=== PATIENT | female | born 1940 | race Caucasian/White ===

== ENCOUNTER 2019-05-06 02:06 | Inpatient (IN) ==
[2019-05-06] MEDS ORDERED: SODIUM CHLORIDE 0.9% 1000ML 1,000 ML IV ONE (02:26)
[2019-05-06] MEDS ORDERED: HYDROmorphone INJ 0.5 MG/0.5 ML SYR IV STA (02:26)
[2019-05-06] MEDS ORDERED: ONDANSETRON INJ 2 MG/ML 2 ML VIAL IV STA (02:26)
[2019-05-06 02:54] LABS: Basophils # (auto) 0.01 K/uL (0-0.2); Basophils % (auto) 0.1 %; Eosinophils # (auto) 0.04 K/uL (0-0.5); Eosinophils % (auto) 0.5 %; Hematocrit (blood only) 39.5 % (37-47); Hemoglobin 13.9 g/dL (12.0-16.0); Immature Granulocytes # (auto) 0.01 K/uL (0.00-0.02); Immature Granulocytes % (auto) 0.1 %; Lymphocytes # (auto) 1.32 K/uL (1.2-3.4); Lymphocytes % (auto) 18.1 %; Mean Corpuscular Hgb Conc 35.2 g/dL (32-36); Mean Platelet Volume 10.2 fL (7.4-10.4); Monocytes # (auto) 0.41 K/uL (0.11-0.59); Monocytes % (auto) 5.6 %; Neutrophils # (auto) 5.52 K/uL (1.4-6.5); Neutrophils % (auto) 75.6 %; Platelet Count 152 K/uL (130-400); RDW Coefficient of Variation 13.4 % (11.5-14.5); Red Blood Count 4.44 M/uL (4.2-5.4); White Blood Count 7.31 K/uL (4.8-10.8)
[2019-05-06 03:11] LABS: Alanine Aminotransferase 204 U/L (12-78); Albumin Level 3.8 gm/dl (3.4-5.0); Aspartate Aminotransferase 451 U/L (15-37); Blood Urea Nitrogen 14 mg/dl (7-18); Calcium 9.3 mg/dl (8.5-10.1); Carbon Dioxide 26 mmol/L (21-32); Chloride 104 mmol/L (98-107); Est GFR (African American) 53.5; Est GFR (Non-African American) 46.2; Glucose 168 mg/dl (70-99); Potassium 4.1 mmol/L (3.5-5.1); Sodium 138 mmol/L (136-145)
[2019-05-06 03:14] LABS: Alkaline Phosphatase 133 U/L (45-117); Bilirubin,Total 2.6 mg/dl (0.2-1); Globulin 3.8 gm/dl (2.5-4.0); Total Protein 7.6 gm/dl (6.4-8.2)
[2019-05-06] MEDS ORDERED: OPTIRAY 320 125ml IV PRN (03:27)
--- NOTE | 2019-05-06 04:34 | Emergency Department Note ---
Entered by Tye Bingham acting as a scribe for History of Present Illness General Chief complaint: Abdominal Pain Stated complaint: ABD PAIN, BACK PAIN Source: patient History of Present Illness Onset (ago): day(s) (yesterday at 1600) Location: abdomen Radiation: abdomen (lower) and other (back) Pain Consistency: + constant Maximum Pain Intensity: 10 Quality: + sharp Exacerbated By: + other (lying down, sitting) Associated symptoms: + other (Negative for vomiting, SOB, and CP.) The patient is a 79 year old female who presents to the emergency department with complaints of constant abdominal pain beginning at 1600 yesterday. The patient states that she developed upper abdominal pain around 1600 yesterday. She notes that her pain goes down into her lower abdomen and into her back. She reports that her back pain is sharp. The patient states that her pain does not radiate down her legs. She notes that lying down and sitting worsen her pain. She denies any similar symptoms in the past. She denies any vomiting, SOB, and CP. She reports that she tried taking Pepto and Tylenol with no relief of her symptoms. The patient states that she had two normal bowel movements today. She notes that she does not smoke cigarettes and she denies any history of diabetes. She reports that she started taking Lipitor five days ago. Home Medications Home Medications Medication Instructions Recorded Confirmed Type atorvastatin 20 mg PO HS 05/06/19 05/06/19 History cetirizine [Zyrtec] 10 mg PO DAILY PRN 05/06/19 05/06/19 History lisinopril-hydrochlorothiazide 1 tab PO DAILY 05/06/19 05/06/19 History Allergies Allergy/AdvReac Type Severity Reaction Status Date / Time No Known Allergies Allergy Unverified 05/06/19 02:49 Past Med/Surg History Medical History Choledocholithiasis with acute cholecystitis with obstruction Acute pancreatitis (Acute) Malignant neoplasm of other specified sites of body of uterus (Resolved 10/27/14 ) "Postmenopausal vaginal bleeding 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 Status post total abdominal hysterectomy bilateral salpingo-oophorectomy and lymph node dissection 12/03/2014 stage [id number] Status post completion of radiation therapy utilizing HDR therapy 3 HDR treatments were given 700 cGy each for a total 2100 cGy" On 01/26/15 17:36 Sofia Martinez wrote "Postmenopausal vaginal bleeding 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 Status post total abdominal hysterectomy bilateral salpingo-oophorectomy and lymph node dissection 12/03/2014 stage [id number]" Family History Other No significant family history Social History Preferred Language: Arabic Communication Ability: Effective Pit Hand Required: No Beliefs That Will Affect Care: None Current Living Situation: Alone Other Information That Helps Us Care for You: No Feels Safe at Home: Yes Safety Concerns: Feels Safe At This Time Smoking Status: Never smoker Do You Dip or Chew Tobacco: No ; Second Hand Exposure: No ; Tobacco Cessation Education Requested by Patient: No Hx Alcohol Use: Yes Alcohol type: hard liquor Hx Substance Use: No Review of Systems See HPI for pertinent positives & negatives. and A total of 10 systems reviewed and were otherwise negative Physical Exam Vital Signs Vital Signs - 24 hr 05/06/19 04:40 05/06/19 05:34 Pulse Rate [Right Finger] 65 68 Pulse Rhythm [Right Finger] Regular Pulse Strength [Right Finger] Normal Respiratory Rate 16 18 Respiratory Effort / Characteristics Non-Labored Non-Labored Spontaneous Respiratory Depth Normal Normal Respiratory Pattern Regular Blood Pressure [Right Arm] 161/92 H 174/79 H Blood Pressure Mean [Right Arm] 115 110 Blood Pressure Position [Right Arm] Lying Pulse Oximetry 97 98 Oxygen Delivery Method Room Air Room Air Vital signs reviewed. General: Well-appearing female, in no significant distress. HEENT: No scleral icterus, PERRLA, neck supple. Atraumatic. Cardiovascular: Regular rate and rhythm, no extra sounds. Pulmonary: Clear to auscultation bilaterally, normal work of breathing. Abdomen: Soft, nondistended, positive bowel sounds, obese abdomen with minimal tenderness to epigastric palpation, no tympany to percussion. Musculoskeletal: Atraumatic, no peripheral edema. Neurologic: Patient awake alert and oriented x 3 Skin: Warm, dry, no rash Course 0223: The patient was evaluated in room B7. A complete history and physical exam was performed. Administered Medications Atorvastatin Calcium (Lipitor) 20 mg PO HS MARIE Stop: 06/05/19 20:59 Last Admin: 05/06/19 21:14 Dose: 20 mg Documented by: [id number] Famotidine 20 mg/ Syringe 5 mls @ 2.5 mls/min IV BID MARIE Stop: 06/05/19 08:59 Last Admin: 05/06/19 21:02 Dose: 2.5 mls/min Documented by: [id number] Admin: 05/06/19 09:56 Dose: 2.5 mls/min Documented by: [id number] Piperacillin Sod/Tazobactam (Sod 3.375 gm/ Dextrose) 115 mls @ 28.75 mls/hr IV Q8H MARIE; Protocol Stop: 05/16/19 09:59 Last Admin: 05/07/19 01:38 Dose: 28.8 mls/hr Documented by: [id number] Infusion: 05/07/19 01:09 Dose: 0 mls/hr Documented by: [id number] Admin: 05/06/19 21:02 Dose: 28.8 mls/hr Documented by: [id number] Infusion: 05/06/19 14:37 Dose: 0 mls/hr Documented by: [id number] Admin: 05/06/19 10:35 Dose: 28.8 mls/hr Documented by: [id number] Lactated Ringer's (Lr) 1,000 mls @ 150 mls/hr IV .Q6H40M MARIE Stop: 06/05/19 09:44 Last Admin: 05/07/19 04:02 Dose: 150 mls/hr Documented by: [id number] Infusion: 05/07/19 03:54 Dose: 150 mls/hr Documented by: [id number] Admin: 05/06/19 21:13 Dose: 150 mls/hr Documented by: [id number] Infusion: 05/06/19 18:20 Dose: 0 mls/hr Documented by: [id number] Admin: 05/06/19 17:15 Dose: 150 mls/hr Documented by: [id number] Infusion: 05/06/19 17:14 Dose: 0 mls/hr Documented by: [id number] Infusion: 05/06/19 17:14 Dose: 0 mls/hr Documented by: [id number] Admin: 05/06/19 11:22 Dose: 150 mls/hr Documented by: [id number] Discontinued Medications Glucagon (Glucagen) Confirm Administered Dose 1 mg .ROUTE .STK-MED ONE Stop: 05/06/19 19:19 Last Admin: 05/06/19 23:15 Dose: Not Given Documented by: [id number] Hydromorphone HCl (Dilaudid) 0.5 mg IV NOW STA Stop: 05/06/19 02:27 Last Admin: 05/06/19 03:02 Dose: 0.5 mg Documented by: [id number] Sodium Chloride (Nss 1000ml) 1,000 mls @ 150 mls/hr IV .Q6H40M ONE Stop: 05/06/19 09:05 Last Infusion: 05/06/19 09:59 Dose: 0 mls/hr Documented by: [id number] Admin: 05/06/19 03:02 Dose: 150 mls/hr Documented by: [id number] Piperacillin Sod/Tazobactam Sod (Zosyn) 4.5 gm in 120 mls @ 240 mls/hr IV NOW ONE Stop: 05/06/19 06:07 Last Infusion: 05/06/19 06:09 Dose: 0 mls/hr Documented by: [id number] Admin: 05/06/19 05:43 Dose: 240 mls/hr Documented by: [id number] Sodium Chloride (Nss 1000ml) 1,000 mls @ 200 mls/hr IV .Q5H MARIE Stop: 06/05/19 06:49 Last Infusion: 05/06/19 10:02 Dose: 0 mls/hr Documented by: [id number] Admin: 05/06/19 09:14 Dose: 200 mls/hr Documented by: [id number] Indomethacin (Indocin) 100 mg UT ONE ONE Stop: 05/06/19 08:30 Last Admin: 05/06/19 08:57 Dose: Not Given Documented by: [id number] Indomethacin (Indocin) Confirm Administered Dose 100 mg UT .STK-MED ONE Stop: 05/06/19 18:26 Last Admin: 05/06/19 18:41 Dose: 100 mg Documented by: [id number] Ioversol (Optiray 320 125ml) 125 ml IV ONCE PRN PRN Reason: Interaction Checking Stop: 05/10/19 03:26 Last Admin: 05/06/19 03:28 Dose: 118 ml Documented by: [id number] Miscellaneous Information (Consult) 1 ea N/A UD PRN PRN Reason: Consult Stop: 06/05/19 05:37 Last Admin: 05/06/19 05:43 Dose: 1 ea Documented by: [id number] Ondansetron HCl (Zofran) 4 mg IV NOW STA Stop: 05/06/19 02:27 Last Admin: 05/06/19 03:02 Dose: 4 mg Documented by: [id number] Medical Decision Making Differential Diagnosis Differential diagnosis: Etiologies such as biliary colic, cholecystitis, hepatitis, perihepatitis, pancreatitis, cardiac disease, pancreatitis, gastritis, peptic ulcer disease, appendicitis, ovarian cyst, ovarian torsion, ectopic , pelvic inflammatory disease, cystitis, diverticulitis, mesenteric ischemia, inflammatory bowel disease, ileus, bowel obstruction, aortic pathology, shingles, as well as others were considered. Medical Records Attestation: I reviewed the patient's medical records. Home Medications Current Medication List: was personally reviewed by me Laboratory Data Attestation: I reviewed the patient's lab results. Result diagrams: 05/06/19 02:43 05/06/19 02:43 Lab Results 05/06/19 05/06/19 05/06/19 Range/Units 02:43 02:43 02:43 WBC 7.31 (4.8-10.8) K/uL RBC 4.44 (4.2-5.4) M/uL Hgb 13.9 (12.0-16.0) g/dL Hct 39.5 (37-47) % MCV 89.0 (80-100) fL MCH 31.3 (25-34) pg MCHC 35.2 (32-36) g/dL RDW Std Deviation 44.0 (36.4-46.3) fL RDW Coeff of Francisco Javier 13.4 (11.5-14.5) % Plt Count 152 (130-400) K/uL MPV 10.2 (7.4-10.4) fL Immature Gran % (Auto) 0.1 % Neut % (Auto) 75.6 % Lymph % (Auto) 18.1 % [place] % (Auto) 5.6 % Eos % (Auto) 0.5 % Baso % (Auto) 0.1 % Immature Gran # (Auto) 0.01 (0.00-0.02) K/uL Neut # (Auto) 5.52 (1.4-6.5) K/uL Lymph # (Auto) 1.32 (1.2-3.4) K/uL [place] # (Auto) 0.41 (0.11-0.59) K/uL Eos # (Auto) 0.04 (0-0.5) K/uL Baso # (Auto) 0.01 (0-0.2) K/uL Sodium 138 (136-145) mmol/L Potassium 4.1 (3.5-5.1) mmol/L Chloride 104 (98-107) mmol/L Carbon Dioxide 26 (21-32) mmol/L Anion Gap 8.0 (3-11) BUN 14 (7-18) mg/dl Creatinine 1.13 (0.6-1.2) mg/dl Est Cr Clr Drug Dosing Not Reportable Est GFR ( Amer) 53.5 Est GFR (Non-Af Amer) 46.2 BUN/Creatinine Ratio 12.0 (10-20) Glucose 168 H (70-99) mg/dl Lactate 1.5 (0.4-2.0) mmol/L Calcium 9.3 (8.5-10.1) mg/dl Total Bilirubin 2.6 H (0.2-1) mg/dl AST 451 H (15-37) U/L ALT 204 H (12-78) U/L Alkaline Phosphatase 133 H (45-117) U/L Total Protein 7.6 (6.4-8.2) gm/dl Albumin 3.8 (3.4-5.0) gm/dl Globulin 3.8 (2.5-4.0) gm/dl Albumin/Globulin Ratio 1.0 (0.9-2) Lipase 1003 H (73-393) U/L Urine Color Urine Appearance (Clear) Urine pH (4.5-7.5) Ur Specific [place] (1.000-1.030) Urine Protein (Negative) Urine Glucose (UA) (Negative) Urine Ketones (Negative) Urine Blood (Negative) Urine Nitrite (Negative) Urine Bilirubin (Negative) Urine Urobilinogen (Negative) Ur Leukocyte Esterase (Negative) 05/06/19 Range/Units 04:31 WBC (4.8-10.8) K/uL RBC (4.2-5.4) M/uL Hgb (12.0-16.0) g/dL Hct (37-47) % MCV (80-100) fL MCH (25-34) pg MCHC (32-36) g/dL RDW Std Deviation (36.4-46.3) fL RDW Coeff of Francisco Javier (11.5-14.5) % Plt Count (130-400) K/uL MPV (7.4-10.4) fL Immature Gran % (Auto) % Neut % (Auto) % Lymph % (Auto) % [place] % (Auto) % Eos % (Auto) % Baso % (Auto) % Immature Gran # (Auto) (0.00-0.02) K/uL Neut # (Auto) (1.4-6.5) K/uL Lymph # (Auto) (1.2-3.4) K/uL [place] # (Auto) (0.11-0.59) K/uL Eos # (Auto) (0-0.5) K/uL Baso # (Auto) (0-0.2) K/uL Sodium (136-145) mmol/L Potassium (3.5-5.1) mmol/L Chloride (98-107) mmol/L Carbon Dioxide (21-32) mmol/L Anion Gap (3-11) BUN (7-18) mg/dl Creatinine (0.6-1.2) mg/dl Est Cr Clr Drug Dosing Est GFR ( Amer) Est GFR (Non-Af Amer) BUN/Creatinine Ratio (10-20) Glucose (70-99) mg/dl Lactate (0.4-2.0) mmol/L Calcium (8.5-10.1) mg/dl Total Bilirubin (0.2-1) mg/dl AST (15-37) U/L ALT (12-78) U/L Alkaline Phosphatase (45-117) U/L Total Protein (6.4-8.2) gm/dl Albumin (3.4-5.0) gm/dl Globulin (2.5-4.0) gm/dl Albumin/Globulin Ratio (0.9-2) Lipase (73-393) U/L Urine Color Yellow Urine Appearance Clear (Clear) Urine pH 8.0 H (4.5-7.5) Ur Specific [place] > 1.045 H (1.000-1.030) Urine Protein Negative (Negative) Urine Glucose (UA) Negative (Negative) Urine Ketones Negative (Negative) Urine Blood Negative (Negative) Urine Nitrite Negative (Negative) Urine Bilirubin Negative (Negative) Urine Urobilinogen Negative (Negative) Ur Leukocyte Esterase Negative (Negative) Imaging Data Radiologist's Impression: CT ABDOMEN & PELVIS With Contrast: Multiple calcified dependent gallstones with the largest measuring 10 mm. No pericholecystic inflammation, but the gallbladder is distended. Correlate with physical exam to see if this patient has a positive Thao's sign for acute cholecystitis. Mild intrahepatic biliary ductal dilatation. Normal appendix visualized. Occasional diverticulosis without evidence of diverticulitis. There is a segment of the transverse colon which is located within a midline incisional hernia. No acute brain bowel obstruction or evidence of incarceration. The small bowel loops appear unremarkable. No bowel obstruction. Status post remote hysterectomy. Small hiatal hernia with circumferential wall thickening of the distal esophagus. Question reflux esophagitis. Radiologist: Axel Borrego M.D. Study ready at 03:34 and initial results transmitted at 05:36 ECG Data Attestation: I personally reviewed and interpreted this ECG as follows: Indication: abdominal pain Rate (beats per minute): 61 Rhythm: sinus rhythm Findings: + 1st degree AV block Additional Comments: Low voltage QRS, previous inferior infarct, QTC 446, nonspecific ST change in anterolateral lead. Blood Pressure Blood Pressure Findings: Elevated blood pressure Blood Pressure Disposition: Referred to patients primary care provider MDM Narrative This patient was evaluated and appeared to be in some discomfort. IV access was obtained and laboratory work was drawn. Patient was medicated with IV Dilaudid and Zofran. IV fluids were initiated. Given the vague distribution of the patient's pain, CT scan of the abdomen pelvis was performed with IV contrast. This study is consistent with calcified stones in the gallbladder. Laboratory work reveals a normal WBC however AST, ALT and total bilirubin are elevated. Given the above findings, obstruction of the biliary tract is a concern. Patient was medicated with IV Zosyn 4.5 g. Her pain and nausea seemed to be under control. I did speak with hospitalist service for admission and further management in addition to Dr. Asif of general surgery. Impression & Plan Acute cholecystitis, Acute pancreatitis Discharge Plan Visit Data *Final* Discharge Date/Time: 05/06/19 06:25 Chief Complaint: Abdominal Pain Stated Complaint: ABD PAIN, BACK PAIN ED Provider: Parris Estrada Discharge Problem: Acute cholecystitis, Acute pancreatitis Patient Disposition: Admitted As Inpatient Discharge Instructions Interventions: ED Discharge Assessment Last Done: 05/06/19 06:25 Discharge Problem: Acute pancreatitis Qualifiers: Pancreatitis type: biliary Acute pancreatitis complication: unspecified Qualified Code(s): K85.10 - Biliary acute pancreatitis without necrosis or infection The scribe's documentation has been prepared under my direction and personally reviewed by me in its entirety. I confirm that the note above accurately reflects all work, treatment, procedures, and medical decision making performed by me.
[2019-05-06] MEDS ORDERED: PIPERACILLIN/TAZOBACTAM 4.5 GM/120 ML BAG IV ONE (05:38)
[2019-05-06] MEDS ORDERED: PIPERACILL/TAZOBAC CONSULT ACTIVE PRN ×2 (05:38→06:50)
[2019-05-06 06:34] LABS: Appearance Urine Clear (Clear); Bilirubin Urine Negative (Negative); Blood Urine Negative (Negative); Color Urine Yellow; Glucose Urine UA Negative (Negative); Ketones Urine Negative (Negative); Leukocyte Esterase Urine Negative (Negative); Nitrite Urine Negative (Negative); Protein Urine Negative (Negative); Specific Gravity Urine > 1.045 (1.000-1.030); Urobilinogen Urine Negative (Negative)
[2019-05-06] MEDS ORDERED: ONDANSETRON INJ 2 MG/ML 2 ML VIAL IV PRN ×2 (06:50→19:09)
[2019-05-06] MEDS ORDERED: CETIRIZINE HCL 10 MG TABLET PO PRN (06:50)
[2019-05-06] MEDS ORDERED: HydrALAZINE HCL 20 MG/ML VIAL IV PRN (06:50)
[2019-05-06] MEDS ORDERED: PIPERACILLIN/TAZOBACTAM 4.5 GM in DEXTROSE 5% 100 ML IV STA (06:50)
[2019-05-06] MEDS ORDERED: SODIUM CHLORIDE 0.9% 1000ML 1,000 ML IV SCH (06:50)
[2019-05-06] MEDS ORDERED: HYDROmorphone INJ 0.5 MG/0.5 ML SYR IV PRN (06:50)
[2019-05-06] MEDS ORDERED: NITROGLYCERIN SL 0.4 MG/TAB TAB SL PRN (06:50)
--- NOTE | 2019-05-06 06:51 | CT Scan Report ---
CT abd pelvis IV con only CT DOSE: 1435.61 mGy.cm HISTORY: Pain. Nausea. elevated LFTs, obs biliary path TECHNIQUE: Multiaxial CT images of the abdomen and pelvis were performed following the use of intrave nous contrast. A dose lowering technique was utilized adhering to the principles of ALARA. COMPARISON STUDY: None. FINDINGS: Lung bases are clear. Mild intrahepatic biliary ductal prominence. Several small gallstones are present within the gallbladder lumen. Common bile duct does not appear to be distended. It appea rs to have a maximum diameter of 6 mm. Mild cortical scarring of the kidneys felt to be age-related. No evidence for hydronephrosis. Bowel pattern is nonobstructive. The appendix is normal. There is a bowel containing ventral and periumbilical location. It shows no evidence for obstructive change. The bladder is midline. IMPRESSION: 1. Mild intrahepatic biliary ductal prominence of uncertain etiology. 2. MRCP is suggested as follow-up. 3. Gallstones. 4. Bowel containing ventral hernia showing no obstructive characteristics. 5. Study is otherwise negative. The above report was generated using voice recognition software. It may contain grammatical, syntax or spelling errors. Electronically signed by: Akbar Harrell M.D. 05/06/2019 6:50 AM
[2019-05-06] MEDS ORDERED: INDOMETHACIN 50 MG SUPP PR ONE ×2 (08:29→18:25)
--- NOTE | 2019-05-06 08:54 | Magnetic Resonance Report ---
Study: MRCP. Gallstones. Elevated liver function tests. COMPARISON: CT abdomen pelvis 05/06/2019 FINDINGS: Gallstones are present within the gallbladder lumen. There are findings of mild gallbladder wall thickening with a trace amount of edema. MRCP component of the study showed mild prominence of the biliary ductal system. Several filling defects in the distal common duct are present. Pancreatic duct shows no evidence for distention. CT findings most likely relate to distal common duct choledocholithiasis. Remainder the study shows liver spleen and pancreas to be unremarkable in signal characteristics. Kid neys negative for hydronephrosis. There is no significant upper abdominal adenopathy. Upper abdominal bowel pattern is nonobstructive. IMPRESSION: 1. Mild dilatation of the intrahepatic as well as extrahepatic biliary ductal system This appears to be secondary to several filling defects of the distal common bile duct consistent with choledocholith iasis. 3. Gallstones within the gallbladder lumen. 4. All findings combine with mild wall edematous change of the gallbladder suggesting acute cholecyst itis with choledocholithiasis. Electronically signed by: Akbar Harrell M.D. 05/06/2019 8:53 AM
--- NOTE | 2019-05-06 09:40 | Gastrointestinal Consultation ---
Date of Consultation May 06, 2019 Assessment & Plan (1) Acute pancreatitis: (2) Choledocholithiasis with acute cholecystitis with obstruction: Pt is a 79 y/o female seen for choledocholithiasis w biliary obstruction, cholecystitis, pancreatitis. - LR @ 150ml/hr - Keep NPO - Zosyn IV - Plan for ERCP (today vs tomorrow) by Dr. Angel - Surgery consulted - Monitor LFTs Supervising Physician Co-Signing Physician Notes I performed a history and physical examination of the patient, including specifically on physical exam - soft, nontender abdomen. I have discussed the patient's management with Earnestine. Please refer to the nurse practitioner's note for the documented findings and plan of care. Patient with abn LFTs, acute biliary pancreatitis and CBD stones on MRCP. Plab for ERCP today. History of Present Illness Reason for Consultation: Cholecystitis, cholangitis Requesting Physician: Dr. Shravan Bennett Attending Physician: Dr. Eric Angel History of Present Illness Pt is a 70 y/o female who presented yesterday w c/o nausea w/o vomiting, upper abd pain x 5 days. Pain radiates down to lower abd and into back. She denies any associated fever, chills, changes in bowel habits. Upon eval, she was noted to have elevated LFTs: Tibli 2.6, AST 451, ALT 2004, AP 133, and lipase 1003. Imaging studies w CT and MRCP showed signs of possible cholecystitis w gallstones, biliary dilation and filling defect consistent w choledocholithiasis Allergies Allergy/AdvReac Type Severity Reaction Status Date / Time No Known Allergies Allergy Unverified 05/06/19 02:49 Home Medications Home Medications Medication Instructions Recorded Confirmed Type atorvastatin 20 mg PO HS 05/06/19 05/06/19 History cetirizine [Zyrtec] 10 mg PO DAILY PRN 05/06/19 05/06/19 History lisinopril-hydrochlorothiazide 1 tab PO DAILY 05/06/19 05/06/19 History Patient History Medical History Choledocholithiasis with acute cholecystitis with obstruction Acute pancreatitis (Acute) Malignant neoplasm of other specified sites of body of uterus (Resolved 03/04/15) "Postmenopausal vaginal bleeding 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 Status post total abdominal hysterectomy bilateral salpingo-oophorectomy and lymph node dissection 12/03/2014 stage [id number] Status post completion of radiation therapy utilizing HDR therapy 3 HDR treatments were given 700 cGy each for a total 2100 cGy" On 01/26/15 17:36 Sofia Martinez wrote "Postmenopausal vaginal bleeding 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 Status post total abdominal hysterectomy bilateral salpingo-oophorectomy and lymph node dissection 12/03/2014 stage [id number]" Family History Other No significant family history Social History Preferred Language: Albanian Communication Ability: Effective Estate Planning Paralegal Required: No Beliefs That Will Affect Care: None Current Living Situation: Alone Other Information That Helps Us Care for You: No Feels Safe at Home: Yes Safety Concerns: Feels Safe At This Time Smoking Status: Never smoker Do You Dip or Chew Tobacco: No ; Second Hand Exposure: No ; Tobacco Cessation Education Requested by Patient: No Hx Alcohol Use: Yes Alcohol type: hard liquor Hx Substance Use: No Review of Systems Review of Systems: All systems reviewed & are unremarkable except as noted in HPI & below Physical Exam Constitutional: WD/WN, vitals as above well groomed, cooperative and comfortable Eyes: PERRL, conjunctivae normal, anicteric sclerae ENMT: external ear and nose normal, oropharynx normal Respiratory: normal respiratory effort, lungs clear to auscultation Cardiovascular: RRR, no murmur, no edema Gastrointestinal (Abdomen): Inspection/Auscultation: + hypoactive bowel sounds Percussion/Palpation: + abdomen tender (upper) and abdomen soft Skin: no rashes, warm and dry no jaundice Psychiatric: A+Ox3, euthymic affect Lymphatic: no lymphedema Results & Data Vital Signs (Past 12 Hours) Vital Signs Temp Pulse Pulse Resp BP BP Pulse Ox 05/06/19 08:11 36.4 C L 66 18 146/84 H 96 05/06/19 06:45 36.7 C 69 18 148/82 H 98 05/06/19 06:28 62 16 182/78 H 96 05/06/19 05:34 68 18 174/79 H 98 05/06/19 04:40 65 16 161/92 H 97 05/06/19 03:00 75 16 171/90 H 96 05/06/19 02:47 96 05/06/19 02:10 36.6 C 65 20 172/92 H 99 (1) Acute pancreatitis Acute pancreatitis complication: unspecified Pancreatitis type: biliary Qualified Code(s): K85.10 - Biliary acute pancreatitis without necrosis or infection
[2019-05-06] MEDS: FAMOTIDINE 20 MG in SYRINGE 3 ML IV SCH ×2 (09:56→21:02)
[2019-05-06] MEDS: PIPERACILLIN/TAZOBACTAM 3.375 GM in DEXTROSE 5% 100 ML IV SCH ×2 (10:35→21:02)
--- NOTE | 2019-05-06 10:40 | Surgery Consultation ---
Date of Consultation May 06, 2019 Assessment & Plan (1) Choledocholithiasis with acute cholecystitis with obstruction: ERCP planned for today. Will continue to trend lipase, plan for cholecystectomy either later this admission or in the near future. Supervising Physician Co-Signing Physician Notes Patient seen and examined, labs and imaging reviewed, agree with above. 79-year-old female presents to the emergency department early this morning with severe abdominal pain. She was noted to have cholelithiasis and cholecystitis along with elevated liver enzymes, MRCP showed choledocholithiasis. She is plan for an ERCP this afternoon. We will continue to follow, possible cholecystectomy this hospital stay versus in the near future. We discussed the risks of the procedure. The diagnosis, details the procedure and recovery, treatment options, and plan of care discussed the patient, all questions were answered, the patient expressed understanding agrees with plan of care as stated. History of Present Illness Attending Physician: Feliciano Amaya MD History of Present Illness 79 y/o female with severe epigastric pain, back pain that began last evening about an hour after eating peanut butter toast. No previous colic, fatty food intolerance. Pain is a little improved this morning. MRCP shows filling defects, GI is planning for ERCP this afternoon. 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 Status post total abdominal hysterectomy bilateral salpingo-oophorectomy and lymph node dissection 12/03/2014 stage [id number] Status post completion of radiation therapy utilizing HDR therapy 3 HDR treatments were given 700 cGy each for a total 2100 cGy" On 01/26/15 17:36 Sofia Martinez wrote "Postmenopausal vaginal bleeding 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 Status post total abdominal hysterectomy bilateral salpingo-oophorectomy and lymph node dissection 12/03/2014 stage [id number]" Family History Other No significant family history Social History Preferred Language: Kinyarwanda Communication Ability: Effective System Developer Associate Manager Required: No Beliefs That Will Affect Care: None Current Living Situation: Alone Other Information That Helps Us Care for You: No Feels Safe at Home: Yes Safety Concerns: Feels Safe At This Time Smoking Status: Never smoker Do You Dip or Chew Tobacco: No ; Second Hand Exposure: No ; Tobacco Cessation Education Requested by Patient: No Hx Alcohol Use: Yes Alcohol type: hard liquor Hx Substance Use: No Review of Systems Constitutional: no fever and no chills Gastrointestinal: + abdominal pain and + nausea; no bloating and no vomiting Physical Exam Constitutional: + obese; no acute distress Respiratory: normal respiratory effort; no respiratory distress Cardiovascular: Rate/Rhythm: regular rate Gastrointestinal (Abdomen): Inspection/Auscultation: + abdominal surgical scar (umbilical); abdomen not distended Percussion/Palpation: + abdomen tender (minimal epigastric) and abdomen soft Results & Data Vital Signs (Past 12 Hours) Vital Signs Temp Pulse Pulse Resp BP BP Pulse Ox 05/06/19 08:11 36.4 C L 66 18 146/84 H 96 05/06/19 06:45 36.7 C 69 18 148/82 H 98 05/06/19 06:28 62 16 182/78 H 96 05/06/19 05:34 68 18 174/79 H 98 05/06/19 04:40 65 16 161/92 H 97 05/06/19 03:00 75 16 171/90 H 96 05/06/19 02:47 96 05/06/19 02:10 36.6 C 65 20 172/92 H 99 PG Care Time/CCT Total # of Minutes Spent Total Time Spent with Patient: Total time spent is greater than 50% in coordination of care (as documented) at patient's floor/unit and/or counseling patient:
--- NOTE | 2019-05-06 11:07 | History and Physical Report ---
DATE OF ADMISSION: 05/06/2019 CHIEF COMPLAINT: Abdominal pain. HISTORY OF PRESENT ILLNESS: This is a 79-year-old female with past medical history significant for hyperlipidemia, allergic rhinitis, chronic kidney disease stage III, essential hypertension, oral lichen planus who lives alone, ambulates without any help. Comes here because of abdominal pain, chest pain started on yesterday afternoon and it got progressively worse, associated with nausea. 8/10 in severity in the upper abdomen radiating to her back. She says she had fever and she was sweating, so she came here and imaging studies shows possible cholecystitis and gallstones and also elevated LFTs. Possible choledocholithiasis and cholangitis. Currently resting comfortably and hemodynamically stable. The pain is improved. Denies any headache, no blurred vision, no runny nose, no sore throat, no difficulty swallowing, no chest pain. When the pain was severe she got short of breath. Normal bowel and bladder movements. No blood in the stools, no black stools, no hematuria, no dysuria, no swelling in the legs, no rash. ALLERGIES: No known drug allergies. PAST MEDICAL HISTORY: As mentioned above. PAST SURGICAL HISTORY: Colonoscopy, cystoscopy, radical hysterectomy, repair of incisional ventral hernia. MEDICATIONS: The patient is on atorvastatin 20 mg p.o. daily, lisinopril/hydrochlorothiazide 20/12.5 mg 1 tablet daily, montelukast 10 mg p.o. daily, triamcinolone topically b.i.d. p.r.n. FAMILY HISTORY: Significant for brother had heart disorder. Father had heart disorder. Mother has heart disorder. SOCIAL HISTORY: . No smoking, one shot of whiskey at bedtime.. No drug use. REVIEW OF SYMPTOMS: As per HPI. Rest of review of systems negative. PHYSICAL EXAMINATION: GENERAL: The patient is of moderate build, not in acute distress. VITAL SIGNS: Temperature 36.6, pulse 60, respiratory rate 18, blood pressure 134/97, oxygen 98% room air. HEENT: No pallor, no icterus. Pupils equal, round, reactive to light. NECK: No JVD, no neck masses, no carotid bruits. CARDIOVASCULAR: S1, S2 heard, regular rate and rhythm, no murmur, no gallop. RESPIRATORY SYSTEM: Normal AP diameter. No accessory muscle use. No wheezing, no crackles. ABDOMEN: Soft, bowel sounds present. Right upper quadrant tenderness present, no guarding, no rigidity. CENTRAL NERVOUS SYSTEM: Cranial nerves II-XII grossly intact. Nonfocal. EXTREMITIES: No edema, no erythema. LABORATORY DATA: WBC 7.3, hemoglobin 13.9, hematocrit 39.5, platelets 152. Sodium 138, potassium 4.1, chloride 104, bicarbonate 26, BUN 14, creatinine 1.13, serum glucose 168. Lactate 1.5, calcium 9.3, total bilirubin 2.6, AST 44, ALT 204, alkaline phosphatase is 133, lipase 2000. Urinalysis is pending. IMAGING: CT of the abdomen and pelvis, unofficial report, but multiple gallstones with the largest 8 mm. No pericholecystic fluid Gallbladder is distended. Mild intrahepatic biliary ductal dilation. Normal appendix, diverticulosis without evidence of diverticulitis. Sigmoid transverse colon which is located within the midline incisional hernia, no acute apparent bowel obstruction or evidence of incarceration, the small bowel loops are unremarkable. The small bowel no bowel obstruction. ECG sinus rhythm, rate of 61 , first degree AV block, no acute ST changes seen. ASSESSMENT AND PLAN: This is a 79-year-old female with right upper and epigastric abdominal pain, found to have possible gallstones and possible cholecystitis and possible choledocholithiasis and cholangitis. 1. Cholecystitis/cholangitis. gall stones and choledocholithiasis?. We will keep patinet n.p.o., IV fluids, IV antiemetics, IV pain medications p.r.n. Empirically iv Zosyn. Surgery and GI consult. 2. Pancreatitis, possibly. Will follow the official CAT scan. Aggressive IV fluids, IV normal saline 200 mL per hour. Will monitor for any volume overload. Repeat lipase levels. 3. Elevated LFTs, possible choledocholithiasis. We will follow the MRCP results, empirically starting IV Zosyn for possible cholangitis. Blood cultures. 4. History of hypertension. We will hold home lisinopril. Hydralazine p.r.n. 5. Hyperlipidemia. Continue statin. 6. Hypokalemia will replace. follow labs 7. Deep venous thrombosis. Prophylaxis, SCDs. Disposition: Admit to tele floor. Expect discharge home and follow with family doctor. Level 1 full code. MTDD
[2019-05-06] MEDS: LACTATED RINGER'S 1,000 ML IV SCH ×3 (11:22→21:13)
--- NOTE | 2019-05-06 11:41 | Anesthesiology Consultation ---
Date of Service May 06, 2019 Assessment & Plan (1) Encounter for pre-operative examination: Chart Review Chart Review: Acceptable Risk for Surgery and Patient NOT seen in Pre Admission Testing Consults Requested none ASA ASA3 Proposed Anesthesia Anesthesia Type: General Risk / Benefits Reviewed With: PT / POA / Parent / Guardian, Accepts Plan and Informed Consent Obtained History Surgery Operation Date: 05/06/19 08:35 Proposed Procedures p Endoscopic Retrograde Cholangiopancreatogram - Eric Angel MD Operation Date: 05/07/19 12:20 Proposed Procedures p Laparoscopic Cholecystectomy Possible Cholangiogram - Shane Asif DO, FACS Height/Weight Height: 5 ft 5 in Weight: 92.2 kg Allergies Allergy/AdvReac Type Severity Reaction Status Date / Time No Known Allergies Allergy Unverified 05/06/19 02:49 Medications Home Medications Medication Instructions Recorded Confirmed Last Taken atorvastatin 20 mg PO HS 05/06/19 05/06/19 Unknown cetirizine [Zyrtec] 10 mg PO DAILY PRN 05/06/19 05/06/19 Unknown lisinopril-hydrochlorothiazide 1 tab PO DAILY 05/06/19 05/06/19 Unknown Active Medications Generic Name Dose Route Start Last Admin Trade Name Freq PRN Reason Stop Dose Admin Atorvastatin Calcium 20 mg 05/06/19 21:00 05/06/19 21:14 Lipitor PO 06/05/19 20:59 20 mg HS MARIE Administration Famotidine 20 mg/ Syringe 5 mls @ 2.5 mls/min 05/06/19 09:00 05/07/19 08:37 IV 06/05/19 08:59 2.5 mls/min BID MARIE Administration Piperacillin Sod/Tazobactam 115 mls @ 28.75 mls/hr 05/06/19 10:00 05/07/19 05:52 Sod 3.375 gm/ Dextrose IV 05/16/19 09:59 Infused Q8H MARIE Infusion Protocol Lactated Ringer's 1,000 mls @ 150 mls/hr 05/06/19 09:45 05/07/19 04:02 Lr IV 06/05/19 09:44 150 mls/hr .[id number] MARIE Administration NPO Date Last Intake of Fluids: 05/05/19 Time Last Intake of Fluids: 18:00 Date Last Intake of Solids: 05/05/19 Time Last Intake of Solids: 14:00 Past Medical History Medical History Choledocholithiasis with acute cholecystitis with obstruction Acute pancreatitis (Acute) Malignant neoplasm of other specified sites of body of uterus (Resolved 10/27/14) "Postmenopausal vaginal bleeding 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 Status post total abdominal hysterectomy bilateral salpingo-oophorectomy and lymph node dissection 12/03/2014 stage [id number] Status post completion of radiation therapy utilizing HDR therapy 3 HDR treatments were given 700 cGy each for a total 2100 cGy" On 01/26/15 17:36 Sofia Martinez wrote "Postmenopausal vaginal bleeding 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 Status post total abdominal hysterectomy bilateral salpingo-oophorectomy and lymph node dissection 12/03/2014 stage [id number]" Exercise / Class Metabolic Activity III < 4 Walking/Shop/Light housework Past Family History Family History Other No significant family history Past Anesthesia History No Hx of Anesthesia Complications and No Family Hx of Anesthesia Complications History of PONV No Hx of PONV and No Hx of Motion Sickness Social History Smoking Status: Never smoker Do You Dip or Chew Tobacco: No Hx Alcohol Use: Yes Alcohol type: hard liquor alcohol intake frequency: 0-2 drinks per day Alcohol Intake Frequency Comment: 1 drink a day Hx Substance Use: No substance use type: does not use Physical Exam Vital Signs Last Vital Signs Temp 36.7 C 05/07/19 09:30 Pulse 74 05/07/19 09:30 Resp 20 05/07/19 09:30 BP 154/86 H 05/07/19 09:30 Pulse Ox 95 05/07/19 09:30 ENMT Mouth: + edentulous and + small oral opening Thyromental Distance: > or= 3.5 Finger Breadths Mallampati Class: II Neck normal visual inspection and trachea midline; neck extension not limited Respiratory normal respiratory effort Auscultation: lungs clear to auscultation bilaterally Cardiovascular Rate/Rhythm: regular rate and regular rhythm Heart Sounds: no murmur Vessels: no carotid bruit Musculoskeletal Spine: normal cervical ROM Neurologic moves all extremities Motor/Sensory: no sensory deficit Psychiatric Orientation: alert and oriented x 3 Testing Laboratory Results 05/07/19 05:26 05/07/19 05:26 Hemoglobin A1c 5.8 % (4.5-5.6) H 05/07/19 05:26 Urine Color Yellow 05/06/19 04:31 Urine Appearance Clear (Clear) 05/06/19 04:31 Urine pH 8.0 (4.5-7.5) H 05/06/19 04:31 Ur Specific [place] > 1.045 (1.000-1.030) H 05/06/19 04:31 Urine Protein Negative (Negative) 05/06/19 04:31 Urine Glucose (UA) Negative (Negative) 05/06/19 04:31 Urine Ketones Negative (Negative) 05/06/19 04:31 Urine Nitrite Negative (Negative) 05/06/19 04:31 Ur Leukocyte Esterase Negative (Negative) 05/06/19 04:31 05/06/19 07:39 Aerobic Blood Culture - Preliminary Blood No growth in Aerobic bottle after 24 hours. Anaerobic Blood Culture - Preliminary No growth in Anaerobic bottle after 24 hours. 05/06/19 07:49 Aerobic Blood Culture - Preliminary Blood No growth in Aerobic bottle after 24 hours. Anaerobic Blood Culture - Preliminary No growth in Anaerobic bottle after 24 hours. Electrocardiogram Date: 05/06/19 Findings: + NSR @ (61) 1st degree A-V block Low voltage QRS Inferior infarct , age undetermined
[2019-05-06] MEDS ORDERED: LIDOCAINE HCL 2% 2 ML VIAL/AMP(20MG/ML) INFIL ONE (17:14)
[2019-05-06] MEDS ORDERED: PROPOFOL IV EMULSION 10 MG/ML 20 ML VIAL IV ONE (17:14)
[2019-05-06] MEDS ORDERED: fentaNYL citrate 100 MCG/2 ML VIAL ONE (17:14)
--- NOTE | 2019-05-06 17:31 | Operative Report ---
Post Operative Report Pre & Post Diagnosis Operation Date: 05/06/19 08:35 <No data on this case meets the specified criteria> Operation Date: 05/07/19 12:20 <No data on this case meets the specified criteria> Procedure Operation Date: 05/06/19 08:35 <No data on this case meets the specified criteria> Operation Date: 05/07/19 12:20 <No data on this case meets the specified criteria> Surgeon Eric Angel MD Brim Welt Sewing Machine Operator None Estimated Blood Loss 0 Findings See Below (Sphincterotomy, balloown sweep, stone removal. EGD with no varices.) Specimens none Description of Procedure ERCP I attest to the content of the Intraoperative Record and any orders documented therein. Any exceptions are noted below.
--- NOTE | 2019-05-06 18:45 | Operative Report ---
Post Operative Report Pre & Post Diagnosis Operation Date: 05/06/19 08:35 Pre-Op Diagnosis: Choledocholithiasis Post-Op Diagnosis: Choledocholithiasis Operation Date: 05/07/19 12:20 <No data on this case meets the specified criteria> Procedure Operation Date: 05/06/19 08:35 Actual Procedures p Endoscopic Retrograde Cholangiopancreatogram(Not Applicable) - Eric Angel MD Operation Date: 05/07/19 12:20 <No data on this case meets the specified criteria> Surgeon Eric Angel MD Draw Frame Operator None Estimated Blood Loss 0 Findings See Below (CBD stone and pus removed, CBD stent placed) Specimens None Description of Procedure ERCP I attest to the content of the Intraoperative Record and any orders documented therein. Any exceptions are noted below.
--- NOTE | 2019-05-06 19:06 | GI REPORT ---
Patient Name: Lauren Guillen Procedure Date: 05/06/2019 6:12 PM Date of : 1940 Admit Type: Inpatient Age: 79 Gender: Female Attending MD: Eric Angel MD Procedure: ERCP Providers: Eric Angel MD Referring MD: Sunil RUSS [place] Indications: Abdominal pain of suspected biliary origin, Biliary dilation on magnetic resonance cholangiopancreatography, Bile duct stone on magnetic resonance cholangiopancreatography, Elevated liver enzymes, Gallstone associated acute pancreatitis Medicines: General Anesthesia Complications: No immediate complications. Estimated Blood Loss: Estimated blood loss: none. Procedure: Pre-Anesthesia Assessment: - Prior to the procedure, a History and Physical was performed, and patient medications and allergies were reviewed. The patient is competent. The risks and benefits of the procedure and the sedation options and risks were discussed with the patient. All questions were answered and informed consent was obtained. Patient identification and proposed procedure were verified by the physician and the nurse in the procedure room. Mental Status Examination: alert and oriented. Airway Examination: normal oropharyngeal airway and neck mobility. Respiratory Examination: clear to auscultation. CV Examination: normal. ASA Grade Assessment: III - A patient with severe systemic disease. After reviewing the risks and benefits, the patient was deemed in satisfactory condition to undergo the procedure. The anesthesia plan was to use general anesthesia. Immediately prior to administration of medications, the patient was re-assessed for adequacy to receive sedatives. The heart rate, respiratory rate, oxygen saturations, blood pressure, adequacy of pulmonary ventilation, and response to care were monitored throughout the procedure. The physical status of the patient was re-assessed after the procedure. After obtaining informed consent, the scope was passed under direct vision. Throughout the procedure, the patient's blood pressure, pulse, and oxygen saturations were monitored continuously. The scope was introduced through the mouth, and advanced to the duodenum and used to inject contrast into the bile duct. The ERCP was accomplished without difficulty. The patient tolerated the procedure well. Findings: The oil scout film was normal. The esophagus was successfully intubated under direct vision. The scope was advanced to a normal major papilla in the descending duodenum without detailed examination of the pharynx, larynx and associated structures, and upper GI tract. The upper GI tract was grossly normal. A 0.035 inch straight Acrobat wire was passed into the biliary tree from the first attempt. The Fusion OMNI sphincterotome was passed over the guidewire and the bile duct was then deeply cannulated. Contrast was injected. I personally interpreted the bile duct images. Ductal flow of contrast was adequate. Image quality was adequate. Contrast extended to the main bile duct. The main bile duct was mildly dilated. The largest diameter was 8 mm. The lower third of the main bile duct contained one stone. Opacification of the cystic duct and gallbladder was seen. Biliary sphincterotomy was made with a monofilament traction (standard) sphincterotome using ERBE electrocautery. There was no post-sphincterotomy bleeding. The biliary tree was swept with a 15 mm balloon starting at the bifurcation. Sludge was swept from the duct. A few stones were removed. No stones remained. Pus was swept from the duct. One 10 Fr by 7 cm plastic biliary stent with a single external flap and a single internal flap was placed into the common bile duct. Bile flowed through the stent. The stent was in good position. Indomethacin 100 mg was given via suppository to decrease the risk of post-ERCP pancreatitis (PEP). PD was not cannulated nor injected with contrast. Impression: - Choledocholithiasis was found. Complete removal was accomplished by biliary sphincterotomy and balloon extraction. - The biliary tree was swept and pus was found consistent with acute cholangitis. - One plastic biliary stent was placed into the common bile duct. Recommendation: - Return patient to [facility] for ongoing care. - Avoid aspirin and nonsteroidal anti-inflammatory medicines for 5 days. - Repeat ERCP in 4 - 6 weeks to remove stent. - Surgery follow up for cholecystectomy. - ABx to complete a 7 days course. Eric Angel MD 05/06/2019 7:05:56 PM This report has been signed electronically. Note Initiated On: 05/06/2019 6:12 PM Number of Addenda: 0 I attest to the content of the Intraoperative Record and orders documented therein, exceptions below {[id number]}
[2019-05-06] MEDS ORDERED: NALOXONE HCL 0.4 MG/1 ML VIAL/CARP IV PRN (19:09)
[2019-05-06] MEDS ORDERED: fentaNYL citrate 100 MCG/2 ML VIAL IV PRN (19:09)
[2019-05-06] MEDS ORDERED: PROMETHAZINE HCL 12.5 MG in SODIUM CHLORIDE 0.9% 50 ML IV PRN (19:09)
[2019-05-06] MEDS ORDERED: ATROPINE SULFATE 0.1 MG/ML 10ML SYR IV PRN (19:09)
[2019-05-06] MEDS ORDERED: ePHEDrine sulfate 50 MG/ML AMP IV PRN (19:09)
[2019-05-06] MEDS ORDERED: FLUMAZENIL 0.1 MG/1 ML 10 ML VIAL IV PRN (19:09)
[2019-05-06] MEDS ORDERED: LABETALOL HCL IV 5 MG/ML 20ML IV PRN (19:09)
[2019-05-06] MEDS ORDERED: GLUCAGON FOR INJ 1 MG VIAL ONE (19:18)
--- NOTE | 2019-05-06 19:21 | Anesthesiology Progress Note ---
Date of Service May 06, 2019 Anesthesia Post Procedure Vital Signs Vital Signs: Temp Pulse Pulse Pulse Resp BP BP 05/06/19 19:15 76 22 148/82 H 05/06/19 19:05 82 26 H 150/82 H 05/06/19 18:55 36.6 C 87 24 138/77 05/06/19 18:54 73 05/06/19 17:16 36.8 C 80 20 136/80 05/06/19 16:09 36.9 C 71 19 133/80 05/06/19 08:11 36.4 C L 66 18 146/84 H 05/06/19 06:45 36.7 C 69 18 148/82 H 05/06/19 06:28 62 16 182/78 H 05/06/19 05:34 68 18 174/79 H 05/06/19 04:40 65 16 161/92 H 05/06/19 03:00 75 16 171/90 H 05/06/19 02:47 05/06/19 02:10 36.6 C 65 20 172/92 H Pulse Ox 05/06/19 19:15 98 05/06/19 19:05 97 05/06/19 18:55 93 05/06/19 18:54 05/06/19 17:16 95 05/06/19 16:09 94 05/06/19 08:11 96 05/06/19 06:45 98 05/06/19 06:28 96 05/06/19 05:34 98 05/06/19 04:40 97 05/06/19 03:00 96 05/06/19 02:47 96 05/06/19 02:10 99 Pain Intensity Abdomen: Pain Intensity: 0 Transfer of Care Handoff Completed per policy Notes Mental Status: alert / awake / arousable Patient Amnestic to Procedure: Yes Nausea / Vomiting: adequately controlled Pain: adequately controlled Airway Patency, RR, SpO2: stable & adequate BP & HR: stable & adequate Hydration State: stable & adequate Anesthetic Complications: no major complications apparent
--- NOTE | 2019-05-06 19:25 | Fluoroscopy Report ---
[place] ERCP biliary ductal CLINICAL HISTORY: 79 years-old Female presenting with ERCP IN [place]. TECHNIQUE: Fluoroscopy was provided for endoscopic retrograde cholangiopancreatography. 9 fluoroscopi c image(s) recorded. COMPARISON: MRCP from earlier today. FINDINGS: Procedure: An endoscope projects over the descending duodenum. A catheter has been inserted into the common bile duct and positioned at the liver hilum. Subsequently, the bile ducts were opacified with contrast. No significant intrahepatic biliary ductal dilatation. Common bile duct top normal to mildl y dilated. The cystic duct opacifies indicating no obstruction. The gallbladder opacifies with eviden ce of cholelithiasis. Possible filling defect within the distal common duct. A balloon was used to cl ear the joint defect and a plastic common bile duct stent was placed at the conclusion of the exam. Peritoneal spillage: No evidence of peritoneal spillage of contrast. Extrahepatic bile ducts: Mild common bile duct dilatation. Suspected distal common duct choledocholit hiasis. Contrast minimally extends into the small bowel the conclusion of the exam. Intrahepatic bile ducts: There is no intrahepatic bile duct dilatation. Fluoroscopy dosage (mGy): 61.03. Fluoroscopy time: 86.6 seconds. Number or time of high level fluoroscopy (HLF), digital spot, or digital subtraction images: 0. IMPRESSION: Clearance of suspected choledocholithiasis. Cholelithiasis with a nonobstructed cystic duct. Electronically signed by: Raul Fung M.D. 05/06/2019 7:24 PM
--- NOTE | 2019-05-06 20:26 | Hospitalist Progress Note ---
Date of Service May 06, 2019 Assessment & Plan (1) Acute cholecystitis: (2) Acute cholangitis: Choledocholithiasis. Present on admission with abdominal pain associated with Nausea and Vomiting CT abdomen/pelvis showed gallstones and bowel containing ventral hernia showing no obstructive characteristics. Elevated AST 451, ALT 204, ALK 133 on admission MRCP done showed mild dilatation of the intrahepatic as well as extrahepatic biliary ductal system This appears to be secondary to several filling defects of the distal common bile duct consistent with choledocholithiasis. Gallstones within the gallbladder lumen. Plan for ERCP later Continue to keep NPO Continue IV Zosyn GI on board Surgery on board plan for cholecystectomy possible during this admission or in the near future. Continue IVF and pain control Acute Pancreatitis Lipase elevated at 1003 Continue IVF Monitor Lipase level in am Pain control History of hypertension. BP stable Lisinopril on hold Hydralazine IV p.r.n. Hyperlipidemia. Continue statin. Hypokalemia K stable monitor BMP DVT px on SCD (anticipate procedure) CODE STATUS FULL CODE Subjective Pt was seen and examined Lying in bed with no distress Denies any chest pain, palpitation, dizziness and SOB Physical Exam Physical Exam: General- No acute distress Head- atraumatic Eyes- PERRL, EOMI, ENT- oropharynx clear Neck- supple, no JVD Lungs- clear to auscultation Heart- regular rhythm; no murmur Abdomen- +tender Extremities- no calf tenderness Neuro- alert, oriented x 3; PERRL, EOMI; no facial palsy; no dysarthria Skin- warm & dry Results & Data Vital Signs (Past 12 Hours) Vital Signs Temp Pulse Pulse Pulse Resp BP Pulse Ox 05/06/19 20:15 37.0 C 74 20 147/77 H 96 05/06/19 20:00 37.0 C 74 20 153/88 H 96 05/06/19 19:35 71 21 153/84 H 97 05/06/19 19:25 36.7 C 72 23 160/78 H 99 05/06/19 19:15 76 22 148/82 H 98 05/06/19 19:05 82 26 H 150/82 H 97 05/06/19 18:55 36.6 C 87 24 138/77 93 05/06/19 18:54 73 05/06/19 17:16 36.8 C 80 20 136/80 95 05/06/19 16:09 36.9 C 71 19 133/80 94
[2019-05-06] MEDS: ATORVASTATIN 20 MG TAB PO SCH (21:14)
[2019-05-07] MEDS: PIPERACILLIN/TAZOBACTAM 3.375 GM in DEXTROSE 5% 100 ML IV SCH ×3 (01:38→17:41)
[2019-05-07] MEDS: LACTATED RINGER'S 1,000 ML IV SCH ×4 (04:02→21:34)
[2019-05-07 05:49] LABS: Basophils # (auto) 0.01 K/uL (0-0.2); Basophils % (auto) 0.2 %; Eosinophils % (auto) 3.7 %; Hematocrit (blood only) 33.6 % (37-47); Hemoglobin 11.5 g/dL (12.0-16.0); Immature Granulocytes # (auto) 0.01 K/uL (0.00-0.02); Immature Granulocytes % (auto) 0.2 %; Lymphocytes # (auto) 1.01 K/uL (1.2-3.4); Lymphocytes % (auto) 18.9 %; Mean Corpuscular Hgb Conc 34.2 g/dL (32-36); Mean Corpuscular Volume 90.6 fL (80-100); Mean Platelet Volume 10.2 fL (7.4-10.4); Monocytes # (auto) 0.46 K/uL (0.11-0.59); Monocytes % (auto) 8.6 %; Neutrophils # (auto) 3.66 K/uL (1.4-6.5); Neutrophils % (auto) 68.4 %; Platelet Count 113 K/uL (130-400); RDW Coefficient of Variation 13.7 % (11.5-14.5); Red Blood Count 3.71 M/uL (4.2-5.4); White Blood Count 5.35 K/uL (4.8-10.8)
[2019-05-07 06:17] LABS: Albumin Level 2.8 gm/dl (3.4-5.0); BUN Creatinine Ratio 8.6 (10-20); Bilirubin Direct 3.7 mg/dl (0-0.2); Calcium 8.1 mg/dl (8.5-10.1); Creatinine Clr Calc Pharmacy 40.6 ml/min; Est GFR (African American) 46.5; Est GFR (Non-African American) 40.1; Potassium 3.8 mmol/L (3.5-5.1)
[2019-05-07 06:19] LABS: Estimated Average Glucose 120 mg/dl; Hemoglobin A1C 5.8 % (4.5-5.6)
[2019-05-07 06:26] LABS: Bilirubin,Total 5.5 mg/dl (0.2-1)
--- NOTE | 2019-05-07 07:39 | Anesthesiology Progress Note ---
Date of Service May 07, 2019 Anesthesia Post Procedure Vital Signs Vital Signs: Temp Pulse Pulse Pulse Resp BP Pulse Ox 05/07/19 07:33 36.6 C 63 19 128/74 93 05/07/19 04:00 36.8 C 62 18 146/83 H 92 05/06/19 23:15 37.0 C 73 20 137/82 93 05/06/19 23:03 69 05/06/19 22:15 37.0 C 70 20 146/78 H 93 05/06/19 21:19 37.0 C 60 20 135/76 92 05/06/19 20:45 75 20 147/82 H 94 05/06/19 20:15 37.0 C 74 20 147/77 H 96 05/06/19 20:00 37.0 C 74 20 153/88 H 96 05/06/19 19:35 71 21 153/84 H 97 05/06/19 19:25 36.7 C 72 23 160/78 H 99 05/06/19 19:15 76 22 148/82 H 98 05/06/19 19:05 82 26 H 150/82 H 97 05/06/19 18:55 36.6 C 87 24 138/77 93 05/06/19 18:54 73 05/06/19 17:16 36.8 C 80 20 136/80 95 05/06/19 16:09 36.9 C 71 19 133/80 94 05/06/19 08:11 36.4 C L 66 18 146/84 H 96 Pain Intensity Abdomen: Pain Intensity: 0 Notes Mental Status: participated in evaluation Patient Amnestic to Procedure: Yes Nausea / Vomiting: adequately controlled Pain: adequately controlled Airway Patency, RR, SpO2: stable & adequate BP & HR: stable & adequate Hydration State: stable & adequate Anesthetic Complications: no major complications apparent and Pt Satisfied with anesthetic care Notes: Complaining of sore throat.
[2019-05-07] MEDS: FAMOTIDINE 20 MG in SYRINGE 3 ML IV SCH ×2 (08:37→20:53)
[2019-05-07] MEDS ORDERED: MIDAZOLAM HCL 1 MG/ML 2ML VIAL ONE (09:53)
[2019-05-07] MEDS ORDERED: GLYCOPYRROLATE 0.2 MG/ML VIAL ONE (09:53)
[2019-05-07] MEDS ORDERED: fentaNYL citrate 100 MCG/2 ML VIAL ONE ×2 (09:53→11:20)
[2019-05-07] MEDS ORDERED: ONDANSETRON INJ 2 MG/ML 2 ML VIAL ONE (09:53)
[2019-05-07] MEDS ORDERED: DEXAMETHASONE SOD INJ 4 MG/ML VIAL ONE (09:53)
[2019-05-07] MEDS ORDERED: PROPOFOL IV EMULSION 10 MG/ML 20 ML VIAL IV ONE (09:53)
[2019-05-07] MEDS ORDERED: ePHEDrine sulfate 50 MG/ML AMP ONE (09:53)
[2019-05-07] MEDS ORDERED: LIDOCAINE HCL 2% 2 ML VIAL/AMP(20MG/ML) INFIL ONE (09:53)
[2019-05-07] MEDS ORDERED: PHENYLEPHRINE HCL 10 MG/ML VIAL ONE (09:53)
[2019-05-07] MEDS ORDERED: SUCCINYLCHOLINE CHLORIDE 20 MG/ML 10 ML VIAL ONE (09:53)
[2019-05-07] MEDS ORDERED: NEOSTIGMINE METHYLSULFATE 5 MG/5 ML SYR ONE (09:53)
[2019-05-07] MEDS ORDERED: HYDROmorphone INJ 2 MG/ML SYR/VIAL IV PRN (10:23)
[2019-05-07] MEDS ORDERED: ePHEDrine sulfate 50 MG/ML AMP IV PRN (10:23)
[2019-05-07] MEDS ORDERED: PROMETHAZINE HCL 12.5 MG in SODIUM CHLORIDE 0.9% 50 ML IV PRN (10:23)
[2019-05-07] MEDS ORDERED: fentaNYL citrate 100 MCG/2 ML VIAL IV PRN (10:23)
[2019-05-07] MEDS ORDERED: ATROPINE SULFATE 0.1 MG/ML 10ML SYR IV PRN (10:23)
[2019-05-07] MEDS ORDERED: METOCLOPRAMIDE HCL INJ 5 MG/ML 2 ML VIAL IV PRN (10:23)
[2019-05-07] MEDS ORDERED: ONDANSETRON INJ 2 MG/ML 2 ML VIAL IV PRN (10:23)
[2019-05-07] MEDS ORDERED: BUPIVACAINE 0.5 % 5 MG/1 ML MPF 30ML VIAL ONE (10:25)
--- NOTE | 2019-05-07 10:25 | Surgery Progress Note ---
Date of Service May 07, 2019 Assessment & Plan (1) Choledocholithiasis with acute cholecystitis with obstruction: Cholelithiasis with cholecystitis and choledocholithiasis status post ERCP. Bilirubin and LFTs slightly elevated today post ERCP. She does have what appears to be a recurrent billable hernia, and I informed we will not address this at this time. Plan for laparoscopic cholecystectomy possible cholangiogram today in the operating room The risks the procedure were discussed to include but not limited to bleeding, infection, retained stone, damage to surrounding structures, conversion open, need for future more extensive surgery, and the risk of anesthesia Present on Admission?: Yes Subjective 79-year-old female admitted with cholecystitis and choledocholithiasis, POD #1 E [employer] with removal of stone and some purulent drainage from the bile duct. Overall doing well, pain improved from yesterday. Physical Exam Constitutional: WD/WN, vitals as above Gastrointestinal (Abdomen): normal bowel sounds, soft, nontender, no hepatosplenomegaly Inspection/Auscultation: + abdominal surgical incision Results & Data Vital Signs (Past 12 Hours) Vital Signs Temp Pulse Pulse Resp BP Pulse Ox 05/07/19 09:30 36.7 C 74 20 154/86 H 95 05/07/19 08:00 72 05/07/19 07:43 79 05/07/19 07:33 36.6 C 63 19 128/74 93 05/07/19 04:00 36.8 C 62 18 146/83 H 92 05/06/19 23:15 37.0 C 73 20 137/82 93 05/06/19 23:03 69 PG Care Time/CCT Total # of Minutes Spent Total Time Spent with Patient: Total time spent is greater than 50% in coordination of care (as documented) at patient's floor/unit and/or counseling p atient:
--- NOTE | 2019-05-07 10:47 | Gastroenterology Progress Note ---
Date of Service May 07, 2019 Assessment & Plan (1) Acute pancreatitis: (2) Choledocholithiasis with acute cholecystitis with obstruction: Pt is a 79 y/o female seen for choledocholithiasis w biliary obstruction, cholecystitis, pancreatitis. ERCP done on 05/06 - choledocholithiasis found, removed, biliary sphincterectomy done. + found to have cholangitis. Biliary stent placed in CBD. Pt was already taken to OR for lap cholecystectomy this morning. Noted LFTs increased though lipase has normalized. We will continue to follow up after her cholecystectomy was done. - Avoid ASA, NSAIDs x 5 days after ERCP - Continue Antibiotic coverage for cholangitis x 7 days - Repeat ERCP in 4-6 weeks for stent removal - Will f/u after lap mary completed. Supervising Physician Co-Signing Physician Notes I performed a history and physical examination of the patient, including specifically on physical exam - soft, nontender abdomen. I have discussed the patient's management with Earnestine. Please refer to the nurse practitioner's note for the documented findings and plan of care. Monitor LFTs, if they trend down then can advance her diet. Results & Data Vital Signs (Past 12 Hours) Vital Signs Temp Pulse Pulse Resp BP Pulse Ox 05/07/19 09:30 36.7 C 74 20 154/86 H 95 05/07/19 08:00 72 05/07/19 07:43 79 05/07/19 07:33 36.6 C 63 19 128/74 93 05/07/19 04:00 36.8 C 62 18 146/83 H 92 05/06/19 23:15 37.0 C 73 20 137/82 93 05/06/19 23:03 69 (1) Acute pancreatitis Acute pancreatitis complication: unspecified Pancreatitis type: biliary Qualified Code(s): K85.10 - Biliary acute pancreatitis without necrosis or infection
--- NOTE | 2019-05-07 12:19 | Operative Report ---
Post Operative Report Pre & Post Diagnosis Operation Date: 05/07/19 12:20 Pre-Op Diagnosis: (1) Choledocholithiasis with acute cholecystitis with obstruction Post-Op Diagnosis: (1) Choledocholithiasis with acute cholecystitis with obstruction Procedure Operation Date: 05/07/19 12:20 Actual Procedures p Laparoscopic Cholecystectomy - Shane Asif DO, FACS Surgeon Shane Asif DO, FACS Tape Edge Machine Operator Sean Mcqueen Estimated Blood Loss 20 Findings Consistent with Post-Op Diagnosis Friable liver and gallbladder. Critical view of safety obtained, cystic duct and artery doubly clipped and divided. Specimens Gallbladder Anesthesia Type General Complications none Disposition Accompanied Patient To Recovery: No Disposition: Recovery Room Indications 79-year-old female admitted with cholecystitis and choledocholithiasis status post ERCP, plan for laparoscopic cholecystectomy possible cholangiogram. The risks of the procedure were discussed, all questions were answered, and the patient agreed to proceed with surgery as planned. Description of Procedure The patient was properly identified, consented, and taken to the operating room where she was placed in the supine position. General endotracheal anesthesia was induced. SCDs and a safety belt were placed. Preoperative antibiotics were administered. The patient's abdomen was prepped and draped in the standard sterile fashion. A surgical timeout was performed and all parties were in agreement that this was the correct patient and procedure to be performed and we continued as planned. A stab incision was made in the left upper quadrant and the Veress needle was inserted. Saline drop test confirmed entry into the peritoneum. The abdomen was insufflated with carbon dioxide which the patient tolerated without incident. An incision was made superior and to the left of the umbilicus overlying the rectus muscle. The abdomen was then entered using the Optiview technique and a 5 mm trocar. The laparoscope was inserted and no damage from initial trocar or Veress needle placement was noted, no gross abnormalities were noted within the 4 quadrants of the abdomen. An 11 mm port was placed in the subxiphoid position and two 5 mm ports were then placed in the right subcostal position. The patient was placed in reverse Trendelenburg position and rotated towards the left. The liver was very friable and there was some adhesions of the liver to the anterior abdominal wall which were taken down with cautery. During retraction the liver did tear slightly. There was some omental adhesions to the anterior abdominal wall and significant omental adhesions to the gallbladder which were taken down with electrocautery. Her hernia was visualized and there was no bowel sticking through it but there were adhesions of the omentum. The gallbladder and the appearance of chronic inflammation but was very friable and tore easily. The dome of the gallbladder was retracted towards the left upper quadrant and the infundibulum was retracted toward the right lower quadrant revealing Calot's triangle. Peritoneal attachments were taken down with electrocautery and blunt dissection. The cystic duct and artery were circumferentially dissected. A window of safety was obtained showing the cystic duct entering the gallbladder with no aberrant structures noted. The cystic duct and artery were doubly clipped and divided. The gallbladder was then lifted off the gallbladder fossa with electrocautery. The gallbladder was placed in an Endo Catch bag and removed through the Subxyphoid port site. There is some bleeding from the liver bed in place of Surgicel was placed in the gallbladder fossa along with a Ray-Dimple and pressure was held for several minutes. These were both removed and the bleeding appeared to be well under control. The right upper quadrant was irrigated and hemostasis was found to be good. 5 mm trochars were removed under direct visualization and the abdomen was allowed to collapse. The subxyphoid port site fascia was closed with 0 Vicryl suture. The wound was irrigated, and the skin of all ports was closed with 4-0 Monocryl subcuticular sutures. Dermabond was placed over the wounds. The patient was extubated in the operating room and taken to the PACU where she recovered without apparent incident. All sponge, instrument and needle counts were correct at the conclusion of the procedure. The patient tolerated the procedure well. The physician's central supply assistant was present and scrubbed for the entirety of the case and was essential in positioning the patient, prepping and draping, retraction and exposure, driving the laparoscope, removal of the gallbladder, closure the incisions, and placement of the dressings. I attest to the content of the Intraoperative Record and any orders documented therein. Any exceptions are noted below.
[2019-05-07] MEDS ORDERED: HYDROmorphone INJ 1 MG/ML SYRINGE IV PRN (13:23)
[2019-05-07] MEDS: ACETAMINOPHEN 325 MG TAB PO PRN ×2 (13:44→21:33)
--- NOTE | 2019-05-07 14:15 | Anesthesiology Progress Note ---
Date of Service May 07, 2019 Anesthesia Post Procedure Vital Signs Vital Signs: Temp Pulse Pulse Pulse Resp BP Pulse Ox 05/07/19 14:00 36.3 C L 69 16 133/78 92 05/07/19 13:46 36.3 C L 71 16 131/73 96 05/07/19 13:30 36.3 C L 62 16 132/72 94 05/07/19 13:10 36.2 C L 57 L 17 129/67 98 05/07/19 12:55 74 13 116/75 99 05/07/19 12:45 64 19 150/59 H 100 05/07/19 12:35 65 18 135/70 100 05/07/19 12:29 36 C L 72 15 120/80 98 05/07/19 09:30 36.7 C 74 20 154/86 H 95 05/07/19 08:00 72 05/07/19 07:43 79 05/07/19 07:33 36.6 C 63 19 128/74 93 05/07/19 04:00 36.8 C 62 18 146/83 H 92 05/06/19 23:15 37.0 C 73 20 137/82 93 05/06/19 23:03 69 05/06/19 22:15 37.0 C 70 20 146/78 H 93 05/06/19 21:19 37.0 C 60 20 135/76 92 05/06/19 20:45 75 20 147/82 H 94 05/06/19 20:15 37.0 C 74 20 147/77 H 96 05/06/19 20:00 37.0 C 74 20 153/88 H 96 05/06/19 19:35 71 21 153/84 H 97 05/06/19 19:25 36.7 C 72 23 160/78 H 99 05/06/19 19:15 76 22 148/82 H 98 05/06/19 19:05 82 26 H 150/82 H 97 05/06/19 18:55 36.6 C 87 24 138/77 93 05/06/19 18:54 73 05/06/19 17:16 36.8 C 80 20 136/80 95 05/06/19 16:09 36.9 C 71 19 133/80 94 Pain Intensity Abdomen: Pain Intensity: 3 Transfer of Care Handoff Completed per policy Notes Mental Status: alert / awake / arousable and participated in evaluation Patient Amnestic to Procedure: Yes Nausea / Vomiting: adequately controlled Pain: adequately controlled Airway Patency, RR, SpO2: stable & adequate BP & HR: stable & adequate Hydration State: stable & adequate Anesthetic Complications: no major complications apparent
--- NOTE | 2019-05-07 18:05 | Hospitalist Progress Note ---
Date of Service May 07, 2019 Assessment & Plan (1) Acute cholecystitis: (2) Acute cholangitis: Choledocholithiasis. Present on admission with abdominal pain associated with Nausea and Vomiting CT abdomen/pelvis showed gallstones and bowel containing ventral hernia showing no obstructive characteristics. Elevated AST 451, ALT 204, ALK 133 on admission MRCP done showed mild dilatation of the intrahepatic as well as extrahepatic biliary ductal system This appears to be secondary to several filling defects of the distal common bile duct consistent with choledocholithiasis. Gallstones within the gallbladder lumen. S/P ERCP done yesterday where complete removal was accomplished by biliary sphincterotomy and balloon extraction S/P Laparoscopic Cholecystectomy done today Continue IV Zosyn Continue IVF and pain control Elevate Lipase Possible related to vomiting, poor oral intake and acute cholecystitis Lipase elevated at 1003 CT abd/pelvis did not mention any abnormality with the pancreas Continue IVF Lipase back to normal Pain control History of hypertension. BP stable Lisinopril on hold Hydralazine IV p.r.n. Hyperlipidemia. Continue statin. Hypokalemia K stable monitor BMP DVT px on SCD (anticipate procedure) CODE STATUS FULL CODE Subjective Pt was seen and examined Lying in bed with no distress Physical Exam Physical Exam: General- No acute distress Head- atraumatic Eyes- PERRL, EOMI, ENT- oropharynx clear Neck- supple, no JVD Lungs- clear to auscultation Heart- regular rhythm; no murmur Abdomen- +tender Extremities- no calf tenderness Neuro- alert, oriented x 3; PERRL, EOMI; no facial palsy; no dysarthria Skin- warm & dry Results & Data Vital Signs (Past 12 Hours) Vital Signs Temp Pulse Pulse Resp BP Pulse Ox 05/07/19 15:00 36.5 C 65 16 131/80 92 05/07/19 14:27 36.4 C L 59 L 16 127/89 97 05/07/19 14:00 36.3 C L 69 16 133/78 92 05/07/19 13:46 36.3 C L 71 16 131/73 96 05/07/19 13:30 36.3 C L 62 16 132/72 94 05/07/19 13:10 36.2 C L 57 L 17 129/67 98 05/07/19 12:55 74 13 116/75 99 05/07/19 12:45 64 19 150/59 H 100 05/07/19 12:35 65 18 135/70 100 05/07/19 12:29 36 C L 72 15 120/80 98 05/07/19 09:30 36.7 C 74 20 154/86 H 95 05/07/19 08:00 72 05/07/19 07:43 79 05/07/19 07:33 36.6 C 63 19 128/74 93
[2019-05-07] MEDS: ATORVASTATIN 20 MG TAB PO SCH (20:53)
[2019-05-08] MEDS: ACETAMINOPHEN 325 MG TAB PO PRN (00:21)
[2019-05-08] MEDS: PIPERACILLIN/TAZOBACTAM 3.375 GM in DEXTROSE 5% 100 ML IV SCH ×2 (01:49→11:01)
[2019-05-08] MEDS: LACTATED RINGER'S 1,000 ML IV SCH ×2 (04:27→12:47)
[2019-05-08 06:18] LABS: Hematocrit (blood only) 29.3 % (37-47); Hemoglobin 10.1 g/dL (12.0-16.0); Immature Granulocytes # (auto) 0.02 K/uL (0.00-0.02); Immature Granulocytes % (auto) 0.2 %; Lymphocytes # (auto) 0.71 K/uL (1.2-3.4); Lymphocytes % (auto) 7.6 %; Mean Corpuscular Hgb Conc 34.5 g/dL (32-36); Mean Platelet Volume 10.5 fL (7.4-10.4); Monocytes # (auto) 0.47 K/uL (0.11-0.59); Monocytes % (auto) 5.1 %; Neutrophils # (auto) 8.09 K/uL (1.4-6.5); Neutrophils % (auto) 87.1 %; Platelet Count 110 K/uL (130-400); RDW Coefficient of Variation 13.8 % (11.5-14.5); RDW Standard Deviation 46.1 fL (36.4-46.3); Red Blood Count 3.22 M/uL (4.2-5.4); White Blood Count 9.29 K/uL (4.8-10.8)
[2019-05-08 07:11] LABS: Albumin Globulin Ratio 0.9 (0.9-2); Albumin Level 2.7 gm/dl (3.4-5.0); BUN Creatinine Ratio 7.9 (10-20); Calcium 8.3 mg/dl (8.5-10.1); Creatinine Clr Calc Pharmacy 42.6 ml/min; Est GFR (African American) 49.3; Est GFR (Non-African American) 42.5; Globulin 3.2 gm/dl (2.5-4.0); Potassium 4.3 mmol/L (3.5-5.1); Total Protein 5.9 gm/dl (6.4-8.2)
--- NOTE | 2019-05-08 07:54 | Surgery Progress Note ---
Date of Service May 08, 2019 Assessment & Plan (1) S/P laparoscopic cholecystectomy: POD#1 Laparoscopic cholecystectomy Doing well and progressing as expected Awaiting Tbili results, but other LFTs downtrending Advance diet as tolerated Will order PO pain if needed Encourage activity Supervising Physician Co-Signing Physician Notes Patient seen and examined, agree with above. POD 1 lap scopic cholecystectomy. She feels much better than prior to surgery. Some ecchymosis around epigastric incision but otherwise healing well. Liver enzymes and bilirubin improving. Advance diet as tolerated, okay to DC to home from general surgery standpoint. Subjective Patient endorsing some mild abdominal pain johanna-incisionally managed with Tylenol. Denies any nausea/vomiting. She tolerated clear liquid diet for dinner overnight. Physical Exam Physical Exam: sleepy, but easily arousable and communicative Respiratory: normal respiratory effort Gastrointestinal (Abdomen): Inspection/Auscultation: + abdominal surgical incision (c/d/i with dermabond overtop. some ecchymosis johanna-epigastric incision) Percussion/Palpation: + abdomen tender (mildly johanna-incisionally) and abdomen soft Results & Data Vital Signs (Past 12 Hours) Vital Signs Temp Pulse Resp BP Pulse Ox 05/08/19 07:26 36.8 C 92 H 18 120/73 94 05/08/19 03:45 36.4 C L 84 20 125/79 95 05/07/19 23:00 37.0 C 81 18 116/69 96 PG Care Time/CCT Total # of Minutes Spent Total Time Spent with Patient: Total time spent is greater than 50% in coordination of care (as documented) at patient's floor/unit and/or counseling patient:
--- NOTE | 2019-05-08 07:55 | Anesthesiology Progress Note ---
Date of Service May 08, 2019 Anesthesia Post Procedure Vital Signs Vital Signs: Temp Pulse Pulse Resp BP Pulse Ox 05/08/19 07:26 36.8 C 92 H 18 120/73 94 05/08/19 03:45 36.4 C L 84 20 125/79 95 05/07/19 23:00 37.0 C 81 18 116/69 96 05/07/19 15:00 36.5 C 65 16 131/80 92 05/07/19 14:27 36.4 C L 59 L 16 127/89 97 05/07/19 14:00 36.3 C L 69 16 133/78 92 05/07/19 13:46 36.3 C L 71 16 131/73 96 05/07/19 13:30 36.3 C L 62 16 132/72 94 05/07/19 13:10 36.2 C L 57 L 17 129/67 98 05/07/19 12:55 74 13 116/75 99 05/07/19 12:45 64 19 150/59 H 100 05/07/19 12:35 65 18 135/70 100 05/07/19 12:29 36 C L 72 15 120/80 98 05/07/19 09:30 36.7 C 74 20 154/86 H 95 05/07/19 08:00 72 Pain Intensity Abdomen: Pain Intensity: 3 Notes Mental Status: alert / awake / arousable and participated in evaluation Nausea / Vomiting: adequately controlled Pain: adequately controlled Airway Patency, RR, SpO2: stable & adequate BP & HR: stable & adequate Hydration State: stable & adequate
[2019-05-08] MEDS ORDERED: OXYCODONE/ACETAMINOPHEN 5mg/325mg TAB PO PRN ×2 (07:58)
[2019-05-08] MEDS: FAMOTIDINE 20 MG in SYRINGE 3 ML IV SCH (08:25)
[2019-05-08 08:59] LABS: Bilirubin Direct 0.9 mg/dl (0-0.2); Bilirubin,Total 1.7 mg/dl (0.2-1)
--- NOTE | 2019-05-08 09:45 | Gastroenterology Progress Note ---
Date of Service May 08, 2019 Assessment & Plan (1) Acute pancreatitis: (2) Choledocholithiasis with acute cholecystitis with obstruction: Pt is a 79 y/o female seen for choledocholithiasis w biliary obstruction, cholecystitis, pancreatitis. ERCP done on 05/06 - choledocholithiasis found, removed, biliary sphincterectomy done. + found to have cholangitis. Biliary stent placed in CBD. Lap cholecystectomy done on 05/07 Her lipase has normalized, LFTs trending down - Avoid ASA, NSAIDs x 5 days after ERCP - Continue Antibiotic coverage for cholangitis x 7 days - Repeat ERCP in 4-6 weeks for stent removal; we will help schedule - Please recall GI PRN Subjective Pt c/o mild pain over RUQ surgical site. Denies any n/v, passing yesterday but not today yet. Drank prune juice to hopefully stimulate BM LFTs trending down. H/H stable. Review of Systems Review of Systems: All systems reviewed & are unremarkable except as noted in HPI & below Physical Exam Constitutional: WD/WN, vitals as above well groomed, cooperative and comfortable Eyes: PERRL, conjunctivae normal, anicteric sclerae ENMT: external ear and nose normal, oropharynx normal Respiratory: normal respiratory effort, lungs clear to auscultation Cardiovascular: RRR, no murmur, no edema Gastrointestinal (Abdomen): Soft, BS present. Surgical sites CDI. Mid upper w large bruising. Skin: no rashes, warm and dry no jaundice Psychiatric: A+Ox3, euthymic affect Lymphatic: no lymphedema Results & Data Vital Signs (Past 12 Hours) Vital Signs Temp Pulse Resp BP Pulse Ox 05/08/19 07:26 36.8 C 92 H 18 120/73 94 05/08/19 03:45 36.4 C L 84 20 125/79 95 05/07/19 23:00 37.0 C 81 18 116/69 96 (1) Acute pancreatitis Acute pancreatitis complication: unspecified Pancreatitis type: biliary Qualified Code(s): K85.10 - Biliary acute pancreatitis without necrosis or infection
--- NOTE | 2019-05-08 15:37 | Hospitalist Progress Note ---
Date of Service May 08, 2019 Assessment & Plan (1) Acute cholecystitis: (2) Acute cholangitis: Choledocholithiasis. Present on admission with abdominal pain associated with Nausea and Vomiting CT abdomen/pelvis showed gallstones and bowel containing ventral hernia showing no obstructive characteristics. Elevated AST 451, ALT 204, ALK 133 on admission Liver enzymes improves today with AST 299, ALT 368 and ALK 147 MRCP done showed mild dilatation of the intrahepatic as well as extrahepatic biliary ductal system This appears to be secondary to several filling defects of the distal common bile duct consistent with choledocholithiasis. Gallstones within the gallbladder lumen. S/P ERCP done yesterday where complete removal was accomplished by biliary sphincterotomy and balloon extraction S/P Laparoscopic Cholecystectomy done yesterday On IV Zosyn, will change to oral augmentin on discharge Case discussed with GI recommended to avoid ASA, NSAIDs x 5 days after ERCP Continue Antibiotic coverage for cholangitis x 7 days Repeat ERCP in 4-6 weeks for stent removal OK from GI and surgery standpoint to discharge home today Tolerated diet Elevate Lipase Possible related to vomiting, poor oral intake and acute cholecystitis Lipase on admission 1003, then normalized CT abd/pelvis did not mention any abnormality with the pancreas Lipase back to normal Denies any symptoms History of hypertension. BP stable Resumed BP med on discharge Hyperlipidemia. Will hold statin until liver enzymes stable Hypokalemia K stable DVT px on SCD (due to recent procedure) CODE STATUS FULL CODE Disposition Follow up with PCP Dr. Walker on 05/12 @ 11:20 Follow up with Surgery Follow up with Gastro for repeat ERCP and stent removal Subjective Pt was seen and examined Walking in the hallway with no distress Pt said that she feels much better She said that she only has tenderness around the surgical area She said that she tolerated her diet Denies any chest pain, palpitation, dizziness, Nausea/vomiting and SOB Physical Exam Physical Exam: General- No acute distress Head- atraumatic Eyes- PERRL, EOMI, ENT- oropharynx clear Neck- supple, no JVD Lungs- clear to auscultation Heart- regular rhythm; no murmur Abdomen- +tender around the incision area Extremities- no calf tenderness Neuro- alert, oriented x 3; PERRL, EOMI; no facial palsy; no dysarthria Skin- warm & dry Results & Data Vital Signs (Past 12 Hours) Vital Signs Temp Pulse Resp BP Pulse Ox 05/08/19 13:40 36.8 C 92 H 18 120/73 94 05/08/19 07:26 36.8 C 92 H 18 120/73 94 05/08/19 03:45 36.4 C L 84 20 125/79 95
[2019-05-08] MEDS ORDERED: AMOXICILLIN/CLAVULANATE 875 MG TAB PO SCH (16:00)
--- NOTE | 2019-05-09 08:20 | Discharge Summary ---
Date of Service May 08, 2019 Admission HPI Per Admitting Provider CHIEF COMPLAINT: Abdominal pain. HISTORY OF PRESENT ILLNESS: This is a 79-year-old female with past medical history significant for hyperlipidemia, allergic rhinitis, chronic kidney disease stage III, essential hypertension, oral lichen planus who lives alone, ambulates without any help. Comes here because of abdominal pain, chest pain started on yesterday afternoon and it got progressively worse, associated with nausea. 8/10 in severity in the upper abdomen radiating to her back. She says she had fever and she was sweating, so she came here and imaging studies shows possible cholecystitis and gallstones and also elevated LFTs. Possible choledocholithiasis and cholangitis. Currently resting comfortably and hemodynamically stable. The pain is improved. Denies any headache, no blurred vision, no runny nose, no sore throat, no difficulty swallowing, no chest pain. When the pain was severe she got short of breath. Normal bowel and bladder movements. No blood in the stools, no black stools, no hematuria, no dysuria, no swelling in the legs, no rash. Admission Exam Per Admitting Provider GENERAL: The patient is of moderate build, not in acute distress. VITAL SIGNS: Temperature 36.6, pulse 60, respiratory rate 18, blood pressure 134/97, oxygen 98% room air. HEENT: No pallor, no icterus. Pupils equal, round, reactive to light. NECK: No JVD, no neck masses, no carotid bruits. CARDIOVASCULAR: S1, S2 heard, regular rate and rhythm, no murmur, no gallop. RESPIRATORY SYSTEM: Normal AP diameter. No accessory muscle use. No wheezing, no crackles. ABDOMEN: Soft, bowel sounds present. Right upper quadrant tenderness present, no guarding, no rigidity. CENTRAL NERVOUS SYSTEM: Cranial nerves II-XII grossly intact. Nonfocal. EXTREMITIES: No edema, no erythema. Principal Diagnosis Acute cholecystitis s/p laparoscopic cholecystectomy Acute cholangitis Elevate Lipase History of hypertension. Hyperlipidemia. Hypokalemia Discharge Exam General- No acute distress Head- atraumatic Eyes- PERRL, EOMI, ENT- oropharynx clear Neck- supple, no JVD Lungs- clear to auscultation Heart- regular rhythm; no murmur Abdomen- +tender around the incision area Extremities- no calf tenderness Neuro- alert, oriented x 3; PERRL, EOMI; no facial palsy; no dysarthria Skin- warm & dry Discharge Data Allergies Allergy/AdvReac Type Severity Reaction Status Date / Time No Known Allergies Allergy Unverified 05/06/19 02:49 Consultations 05/06/19 05:44 ED Decision to Admit Stat 05/06/19 05:50 Consult General Surgery Stat 05/06/19 06:50 Consult Gastroenterology Routine Procedures Performed Operation Date: 05/06/19 08:35 Actual Procedures p Endoscopic Retrograde Cholangiopancreatogram(Not Applicable) - Eric Angel MD Operation Date: 05/07/19 12:20 Actual Procedures p Laparoscopic Cholecystectomy - Shane Asif, , FACS Ordered Studies 05/06/19 03:20 CT abd pelvis IV con only Urgent 05/06/19 06:50 MR MRCP Stat 05/06/19 16:30 FL ERCP biliary ductal Routine DICTATED BY: Eric Angel M.D. Patient Name: Lauren Guillen Procedure Date: 05/06/2019 6:12 PM Date of : 1940 Admit Type: Inpatient Age: 79 Gender: Female Attending MD: Eric Angel MD Procedure: ERCP Providers: Eric Angel MD Referring MD: Sunil RUSS Indications: Abdominal pain of suspected biliary origin, Biliary dilation on magnetic resonance cholangiopancreatography, Bile duct stone on magnetic resonance cholangiopancreatography, Elevated liver enzymes, Gallstone associated acute pancreatitis Medicines: General Anesthesia Complications: No immediate complications. Estimated Blood Loss: Estimated blood loss: none. Procedure: Pre-Anesthesia Assessment: - Prior to the procedure, a History and Physical was performed, and patient medications and allergies were reviewed. The patient is competent. The risks and benefits of the procedure and the sedation options and risks were discussed with the patient. All questions were answered and informed consent was obtained. Patient identification and proposed procedure were verified by the physician and the nurse in the procedure room. Mental Status Examination: alert and oriented. Airway Examination: normal oropharyngeal airway and neck mobility. Respiratory Examination: clear to auscultation. CV Examination: normal. ASA Grade Assessment: III - A patient with severe systemic disease. After reviewing the risks and benefits, the patient was deemed in satisfactory condition to undergo the procedure. The anesthesia plan was to use general anesthesia. Immediately prior to administration of medications, the patient was re-assessed for adequacy to receive sedatives. The heart rate, respiratory rate, oxygen saturations, blood pressure, adequacy of pulmonary ventilation, and response to care were monitored throughout the procedure. The physical status of the patient was re-assessed after the procedure. After obtaining informed consent, the scope was passed under direct vision. Throughout the procedure, the patient's blood pressure, pulse, and oxygen saturations were monitored continuously. The scope was introduced through the mouth, and advanced to the duodenum and used to inject contrast into the bile duct. The ERCP was accomplished without difficulty. The patient tolerated the procedure well. Findings: The kindergartner film was normal. The esophagus was successfully intubated under direct vision. The scope was advanced to a normal major papilla in the descending duodenum without detailed examination of the pharynx, larynx and associated structures, and upper GI tract. The upper GI tract was grossly normal. A 0.035 inch straight Acrobat wire was passed into the biliary tree from the first attempt. The Fusion OMNI sphincterotome was passed over the guidewire and the bile duct was then deeply cannulated. Contrast was injected. I personally interpreted the bile duct images. Ductal flow of contrast was adequate. Image quality was adequate. Contrast extended to the main bile duct. The main bile duct was mildly dilated. The largest diameter was 8 mm. The lower third of the main bile duct contained one stone. Opacification of the cystic duct and gallbladder was seen. Biliary sphincterotomy was made with a monofilament traction (standard) sphincterotome using ERBE electrocautery. There was no post-sphincterotomy bleeding. The biliary tree was swept with a 15 mm balloon starting at the bifurcation. Sludge was swept from the duct. A few stones were removed. No stones remained. Pus was swept from the duct. One 10 Fr by 7 cm plastic biliary stent with a single external flap and a single internal flap was placed into the common bile duct. Bile flowed through the stent. The stent was in good position. Indomethacin 100 mg was given via suppository to decrease the risk of post-ERCP pancreatitis (PEP). PD was not cannulated nor injected with contrast. Impression: - Choledocholithiasis was found. Complete removal was accomplished by biliary sphincterotomy and balloon extraction. - The biliary tree was swept and pus was found consistent with acute cholangitis. - One plastic biliary stent was placed into the common bile duct. Recommendation: - Return patient to [facility] for [facility] care. - Avoid aspirin and nonsteroidal anti-inflammatory medicines for 5 days. - Repeat ERCP in 4 - 6 weeks to remove stent. - Surgery follow up for cholecystectomy. - ABx to complete a 7 days course. Eric Angel MD 05/06/2019 7:05:56 PM This report has been signed electronically. Note Initiated On: 05/06/2019 6:12 PM Number of Addenda: 0 I attest to the content of the Intraoperative Record and orders documented therein, exceptions below {[id number]} Signed By:05/06/191905 Dictated: 05/06/191811 Transcribed: 05/06/191905Transcriptionist: BERTIN CARRANZA ERCP biliary ductal CLINICAL HISTORY: 79 years-old Female presenting with ERCP IN O. TECHNIQUE: Fluoroscopy was provided for endoscopic retrograde cholangiopancreatography. 9 fluoroscopic image(s) recorded. COMPARISON: MRCP from earlier today. FINDINGS: Procedure: An endoscope projects over the descending duodenum. A catheter has been inserted into the common bile duct and positioned at the liver hilum. Subse quently, the bile ducts were opacified with contrast. No significant intrahepatic biliary ductal dilatation. Common bile duct top normal to mildly dilated. The cystic duct opacifies indicating no obstruction. The gallbladder opacifies with evidence of cholelithiasis. Possible filling defect within the distal common duct. A balloon was used to clear the joint defect and a plastic common bile duct stent was placed at the conclusion of the exam. Peritoneal spillage: No evidence of peritoneal spillage of contrast. Extrahepatic bile ducts: Mild common bile duct dilatation. Suspected distal common duct choledocholithiasis. Contrast minimally extends into the small bowel the conclusion of the exam. Intrahepatic bile ducts: There is no intrahepatic bile duct dilatation. Fluoroscopy dosage (mGy): 61.03. Fluoroscopy time: 86.6 seconds. Number or time of high level fluoroscopy (HLF), digital spot, or digital subtraction images: 0. IMPRESSION: Clearance of suspected choledocholithiasis. Cholelithiasis with a nonobstructed cystic duct. Electronically signed by: Raul Fung M.D. 05/06/2019 7:24 PM Dictated: 05/06/191920 Transcribed: 05/06/191920 Study: MRCP. Gallstones. Elevated liver function tests. COMPARISON: CT abdomen pelvis 05/06/2019 FINDINGS: Gallstones are present within the gallbladder lumen. There are findings of mild gallbladder wall thickening with a trace amount of edema. MRCP component of the study showed mild prominence of the biliary ductal system. Several filling defects in the distal common duct are present. Pancreatic duct shows no evidence for distention. CT findings most likely relate to distal common duct choledocholithiasis. Remainder the study shows liver spleen and pancreas to be unremarkable in signal characteristics. Kidneys negative for hydronephrosis. There is no significant upper abdominal adenopathy. Upper abdominal bowel pattern is nonobstructive. IMPRESSION: 1. Mild dilatation of the intrahepatic as well as extrahepatic biliary ductal system This appears to be secondary to several filling defects of the distal common bile duct consistent with choledocholithiasis. 3. Gallstones within the gallbladder lumen. 4. All findings combine with mild wall edematous change of the gallbladder suggesting acute cholecystitis with choledocholithiasis. Electronically signed by: Akbar Harrell M.D. 05/06/2019 8:53 AM Dictated: 05/06/19848 Transcribed: 05/06/19848 Hospital Course (1) Acute cholecystitis: (2) Acute cholangitis: Choledocholithiasis. Present on admission with abdominal pain associated with Nausea and Vomiting CT abdomen/pelvis showed gallstones and bowel containing ventral hernia showing no obstructive characteristics. Elevated AST 451, ALT 204, ALK 133 on admission Liver enzymes improves today with AST 299, ALT 368 and ALK 147 MRCP done showed mild dilatation of the intrahepatic as well as extrahepatic biliary ductal system This appears to be secondary to several filling defects of the distal common bile duct consistent with choledocholithiasis. Gallstones within the gallbladder lumen. S/P ERCP done yesterday where complete removal was accomplished by biliary sphincterotomy and balloon extraction S/P Laparoscopic Cholecystectomy done yesterday On IV Zosyn, will change to oral augmentin on discharge Case discussed with GI recommended to avoid ASA, NSAIDs x 5 days after ERCP Continue Antibiotic coverage for cholangitis x 7 days Repeat ERCP in 4-6 weeks for stent removal OK from GI and surgery standpoint to discharge home today Tolerated diet Elevate Lipase Possible related to vomiting, poor oral intake and acute cholecystitis Lipase on admission 1003, then normalized CT abd/pelvis did not mention any abnormality with the pancreas Lipase back to normal Denies any symptoms History of hypertension. BP stable Resumed BP med on discharge Hyperlipidemia. Will hold statin until liver enzymes stable Hypokalemia K stable DVT px on SCD (due to recent procedure) CODE STATUS FULL CODE Disposition Follow up with PCP Dr. Walker on 05/12 @ 11:20 Follow up with Surgery Follow up with Gastro for repeat ERCP and stent removal Total Time Total Time Spent Total Time Spent (In Minutes): 35 minutes Total Time Includes: Examination of the Patient, Discharge Planning, Medication Reconciliation, Communication With Other Providers and Other Discharge Plan Discharge Items Patient Disposition: Home - Self-Care Reason For Visit: ABDOMINAL PAIN Discharge Diagnosis: Acute cholecystitis s/p laparoscopic cholecystectomy Acute cholangitis Elevate Lipase History of hypertension. Hyperlipidemia. Hypokalemia Activity: Per Instructions section Lifting: No more than 10 pounds Bathing: No limitations Exercise/Sports: Wait until after follow-up appointment Exercise Comment: light activity for 3 weeks Driving/Machine Use: do not drive while you are taking narcotics for pain Non-emergency contact: Primary Care Provider Call non-emergency contact if: you have any medication questions, your pain is not controlled, you have a fever, your temperature is above 101.5 and your wound has increased redness Follow-up/Referrals: Shane Asif DO, [facility] [Physician] - (In approx 2 weeks, call to schedule an appt or if you have any questions) Sunil Champion MD [Primary Care Provider] - Diet: Regular Addtl Attending Provider Instructions: Pending Studies at Discharge: No Studies:: Follow up with your primary care provider Dr. Walker on 05/12 @ 11:20 Follow up with Surgery in 1 -2 weeks (Please call to schedule for the appointment) Follow up with Gastro for repeat ERCP and stent removal in 4-6 weeks Check CMP in 1 week to monitor your liver enzymes Continue course of antibiotic with augmentin avoidd NSAIDs (aspirin, motrin, aleve, naproxen, ibuprofen, advil) x 5 days after ERCP Hold Atorvastatin for now until liver enzymes back to normal Do not drive or operate any machine after taking the oxycodone Hold next dose of oxycodone if you become drowsy and lethary Stand-Alone Forms: Call Back Authorization, [facility] Medications and DC Order Prescriptions: New oxycodone-acetaminophen [Percocet] 5-325 mg tablet 1 - 2 tab PO .every 4-6 hours PRN (Reason: pain, for initial therapy) Qty: 15 RF: 0 amoxicillin-pot clavulanate 875-125 mg Tablet 1 tab PO BIDM 5 Days Qty: 10 RF: 0 Continued atorvastatin 20 mg Tablet 20 mg PO HS RF: 0 lisinopril-hydrochlorothiazide 10-12.5 mg Tablet 1 tab PO DAILY RF: 0 cetirizine [Zyrtec] 10 mg Tablet 10 mg PO DAILY PRN (Reason: Allergy Symptoms) RF: 0 Discharge Orders: Discharge Order (Routine); Ordered 05/08/19 Ordered By: Feliciano Amaya Admission Data Admit Date/Time: 05/06/19 06:07 Attending Provider: Feliciano Amaya Admit Provider: Shravan Bennett Primary Care Provider: Sunil Champion Other Providers: Pilar Mendoza ; Shane Asif ; Shravan Bennett ; Tamica Luna ; Mert Watts ; aKylyn Pollock ; Sanket Stevens ; Laura Loomis ; Shayla Mcdermott ; Shira Toro ; Arsenio Bruno ; Brian Rios ; Kamini Castro ; Manjula Galarza ; Earnestine Breen ; Geetha Berman ; Eric Angel Other Interventions: Discharge Summary Assessment (RN) Last Done: 05/08/19 13:40 DC Date/Time DO NOT enter until pt leaves facility: 05/08/19 16:00
[2019-05-09] MEDS ORDERED: FAMOTIDINE 20 MG TAB PO SCH (09:00)
[2019-05-09] MEDS ORDERED: LISINOPRIL 10 MG TAB PO SCH (09:00)
== END 2019-05-08 16:00 | disposition home or self-care (01) | DRG 418 ==
LOC: ED 02:06 → 2W 06:07 → SUATTDRO 06:07 → 2W 06:25

== ENCOUNTER 2022-03-11 14:07 | Inpatient (IN) ==
[2022-03-11] MEDS ORDERED: ONDANSETRON INJ 2 MG/ML 2 ML VIAL IV STA (14:33)
[2022-03-11] MEDS ORDERED: SODIUM CHLORIDE 0.9% 1000ML 500 ML IV ONE (14:33)
[2022-03-11] MEDS ORDERED: MoRPHine SULFATE 2 MG/ML CARP IV STA (14:33)
--- NOTE | 2022-03-11 14:40 | Emergency Department Note ---
History of Present Illness General Chief complaint: Abdominal Pain Stated complaint: ABDOMINAL PAIN Time Seen by Provider: 03/11/22 14:19 Source: patient and family (Son who is at the bedside) Mode of arrival: ambulatory Limitations: no limitations History of Present Illness Maximum Pain Intensity: 7 This patient is an 82-year-old female who comes in complaining of abdominal pain. She says its worse when she stands up. She says she is had a hernia for the last 2 or 3 years and gets pain off and on it also tends get worse after she eats certain things is gotten worse over the last 2 to 3 days. 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 No fever chills or nausea or vomiting normal bowel movements without blood or melena no dysuria hematuria no numbness or weakness. She did see Dr. Valencia on September 03 and had a CAT scan and has not had follow-up yet. Her CAT scan showed a large periumbilical hernia containing fat and nonobstructed transverse colon and small bowel with also 2 small supraumbilical fat-containing ventral hernias. 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 Status post total abdominal hysterectomy bilateral salpingo-oophorectomy and lymph node dissection 12/03/2014 stage [id number] Status post completion of radiation therapy utilizing HDR therapy 3 HDR treatments were given 700 cGy each for a total 2100 cGy" On 01/26/15 17:36 Sofia Martinez wrote "Postmenopausal vaginal bleeding 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 Status post total abdominal hysterectomy bilateral salpingo-oophorectomy and lymph node dissection 12/03/2014 stage [id number]" Family History Other No significant family history Social History Smoking Status: Never smoker Second Hand Exposure: No; Hx Alcohol Use: Yes Alcohol type: hard liquor Hx Substance Use: No Preferred Language: Wolof Communication Ability: Effective Erp Implementation Consultant Required: No Beliefs That Will Affect Care: None Current Living Situation: Alone Other Information That Helps Us Care for You: No Feels Safe at Home: Yes Safety Concerns: Feels Safe At This Time Assistive Devices: Denture - Upper, Denture - Lower and Glasses Review of Systems A total of 10 systems reviewed and were otherwise negative Physical Exam Vital Signs Vital Signs - 24 hr 03/11/22 14:07 03/11/22 14:33 03/11/22 14:45 Temperature 36.9 C Temperature Source Oral Pulse Rate 95 H 84 Pulse Rate [Apical] Pulse Rhythm [Apical] Respiratory Rate 16 20 Respiratory Effort / Characteristics Respiratory Depth Respiratory Pattern Blood Pressure 148/93 H 148/94 H Blood Pressure [Left Arm] Blood Pressure Mean 111 112 Blood Pressure Mean [Left Arm] Blood Pressure Position [Left Arm] Pulse Oximetry 98 97 97 Oxygen Delivery Method Room Air Oxygen Flow Rate Sepsis Recent Fever Within 48 Hours No Sepsis New/Unexplained Change in Mental Status No Sepsis Action Taken by Nursing No Action Required 03/11/22 15:14 03/11/22 15:30 03/11/22 19:17 Temperature 36.1 C L Temperature Source Temporal Artery Scan Pulse Rate 80 79 Pulse Rate [Apical] 92 H Pulse Rhythm [Apical] Regular Respiratory Rate 18 17 23 Respiratory Effort / Characteristics Spontaneous Grunting Moaning Respiratory Depth Normal Respiratory Pattern Grunting Blood Pressure 148/91 H 143/71 H Blood Pressure [Left Arm] 192/90 H Blood Pressure Mean 110 95 Blood Pressure Mean [Left Arm] 124 Blood Pressure Position [Left Arm] Sitting Pulse Oximetry 99 99 100 Oxygen Delivery Method Nasal Cannula Oxygen Flow Rate 4 Sepsis Recent Fever Within 48 Hours Sepsis New/Unexplained Change in Mental Status Sepsis Action Taken by Nursing General: Well developed well nourished older female who is in no acute distress, breathing comfortably on room air. Normal speech HEENT: Normal cephalic atraumatic. Pupils are equal round and reactive to light. Extraocular movements are intact. Oropharynx is pink with moist mucous membranes. No swelling of the mouth lips or tongue. Neck: Supple with a midline trachea. No meningeal signs or stiffness, no JVD or bruits. No Stridor. Chest: Clear to auscultation bilaterally. No wheezes or rhonchi. No increased work of breathing. Heart: Regular rate and rhythm without murmurs or gallops. Abdomen: Soft, mildly diffusely tender mostly centrally without redness or warmth or any definable mass when she was examined laying flat. Nondistended without rebound guarding or rigidity. Extremities: No cyanosis clubbing or edema. No calf tenderness or assymetry Spine/Back. Non tender to palpation. No CVA tenderness Skin: Good turgor without rashes. Neurologic exam: Cranial nerves two through 12 are intact. Motor and sensation are intact and symmetrical throughout. Course Administered Medications Discontinued Medications Bacitracin (Bacitracin Oint 15 Gm Tube) Confirm Administered Dose 45 appln .ROUTE .STK-MED ONE Stop: 03/11/22 16:53 Last Admin: 03/11/22 18:58 Dose: 45 appln Documented By: DOMINIQUE Bupivacaine HCl (Bupivacaine 0.5 % 5 Mg/1 Ml Mpf 30ml Vial) Confirm Administered Dose 30 ml .ROUTE .STK-MED ONE Stop: 03/11/22 16:53 Last Admin: 03/11/22 18:58 Dose: 20 ml Documented By: DOMINIQUE Fentanyl Citrate (Fentanyl Citrate 100 Mcg/2 Ml Vial) 50 mcg IV Q5M PRN PRN Reason: PACU Use Only-Pain Stop: 03/12/22 01:26 Last Admin: 03/11/22 19:43 Dose: 50 mcg Documented By: Admin: 03/11/22 19:38 Dose: 50 mcg Documented By: Admin: 03/11/22 19:31 Dose: 50 mcg Documented By: Admin: 03/11/22 19:24 Dose: 50 mcg Documented By: DORINA Fentanyl Citrate (Fentanyl Citrate 100 Mcg/2 Ml Vial) Confirm Administered Dose 100 mcg .ROUTE .STK-MED ONE Stop: 03/11/22 19:24 Last Admin: 03/11/22 19:24 Dose: Not Given Documented By: DORINA Fentanyl Citrate (Fentanyl Citrate 100 Mcg/2 Ml Vial) Confirm Administered Dose 100 mcg .ROUTE .STK-MED ONE Stop: 03/11/22 19:38 Last Admin: 03/11/22 19:50 Dose: Not Given Documented By: DORINA Hydromorphone HCl (Hydromorphone Inj 2 Mg/Ml Syr/Vial) 0.5 mg IV Q5M PRN PRN Reason: PACU Use Only-Pain Stop: 03/12/22 01:27 Last Admin: 03/11/22 20:03 Dose: 0.5 mg Documented By: Admin: 03/11/22 19:55 Dose: 0.5 mg Documented By: DORINA Sodium Chloride (Nss 1000ml) 500 mls @ 999 mls/hr IV .Q31M ONE Stop: 03/11/22 15:03 Last Infusion: 03/11/22 15:17 Dose: 0 mls/hr Documented By: Admin: 03/11/22 14:46 Dose: 999 mls/hr Documented By: LARRY Cefazolin Sodium (Ancef 2000mg) 2,000 mg in 15 mls @ 3.75 mls/min IV PREOP ONE Stop: 03/11/22 16:48 Last Admin: 03/11/22 17:45 Dose: 3.75 mls/min Documented By: PARKER Lidocaine HCl (Lidocaine 1% Local 20 Ml Vial) Confirm Administered Dose 20 ml .ROUTE .STK-MED ONE Stop: 03/11/22 16:53 Last Admin: 03/11/22 18:59 Dose: 20 ml Documented By: DOMINIQUE Morphine Sulfate (Morphine Sulfate 2 Mg/Ml Carp) 2 mg IV NOW STA Stop: 03/11/22 14:34 Last Admin: 03/11/22 14:46 Dose: 2 mg Documented By: LARRY Ondansetron HCl (Ondansetron Inj 2 Mg/Ml 2 Ml Vial) 4 mg IV NOW STA Stop: 03/11/22 14:34 Last Admin: 03/11/22 14:46 Dose: 4 mg Documented By: LARRY Medical Decision Making Differential Diagnosis Hernia, bowel obstruction, incarcerated hernia, sepsis, musculoskeletal, colitis, cardiac disease, electrolyte or metabolic abnormality Medical Records Attestation: I reviewed the patient's medical records. Home Medications Current Medication List: was personally reviewed by me Laboratory Data Attestation: I reviewed the patient's lab results. Result diagrams: 03/11/22 15:20 03/11/22 14:58 Lab Results 03/11/22 03/11/22 03/11/22 Range/Units 14:58 14:58 14:58 WBC Cancelled RBC Cancelled Hgb Cancelled Hct Cancelled MCV Cancelled MCH Cancelled MCHC Cancelled RDW Std Deviation Cancelled RDW Coeff of Francisco Javier Cancelled Plt Count Cancelled MPV Cancelled Immature Gran % (Auto) Cancelled Neut % (Auto) Cancelled Lymph % (Auto) Cancelled [place] % (Auto) Cancelled Eos % (Auto) Cancelled Baso % (Auto) Cancelled Neut # (Auto) Cancelled Lymph # (Auto) Cancelled [place] # (Auto) Cancelled Eos # (Auto) Cancelled Baso # (Auto) Cancelled Immature Gran # (Auto) Cancelled Absolute Nucleated RBC Cancelled Nucleated RBC % (auto) Cancelled Neutrophils % (Manual) Cancelled Band Neutrophils % Cancelled Lymphocytes % (Manual) Cancelled Prolymphocyte % Cancelled Reactive Lymphs % (Man) Cancelled Monocytes % (Manual) Cancelled Eosinophils % (Manual) Cancelled Basophils % (Manual) Cancelled Metamyelocytes % (Man) Cancelled Myelocytes % (Man) Cancelled Promyelocytes % (Man) Cancelled Blast Cells % (Manual) Cancelled Plasma Cell % (Manual) Cancelled Other Cells % Cancelled Nucleated RBC % Cancelled Neutrophils # (Manual) Cancelled Band Neutrophils # Cancelled Total Absolute Neuts Cancelled Lymphocytes # (Manual) Cancelled Prolymphocyte # Cancelled Reactive Lymphs # Cancelled Total Abs Lymphocytes Cancelled Monocytes # (Manual) Cancelled Eosinophils # (Manual) Cancelled Basophils # (Manual) Cancelled Metamyelocytes # (Man) Cancelled Myelocytes # (Manual) Cancelled Promyelocytes # (Man) Cancelled Blast Cells # (Man) Cancelled Plasma Cell # (Manual) Cancelled Other Cells # Cancelled Nucleated RBCs # (Man) Cancelled Hypersegmented Neuts Cancelled Hyposegmented Neuts Cancelled Hypogranular Neuts Cancelled Large Granular Lymphs Cancelled # Lrg Granular Lymphs Cancelled Hairy Cells Cancelled Smudge Cells Cancelled Toxic Granulation Cancelled Toxic Vacuolation Cancelled Dohle Bodies Cancelled Sixto Rods Cancelled Platelet Estimate Cancelled Hypogranular Platelets Cancelled Clumped Platelets Cancelled Giant Platelets Cancelled Platelet Satelliting Cancelled RBC Morphology Cancelled Polychromasia Cancelled Hypochromasia Cancelled Poikilocytosis Cancelled Basophilic Stippling Cancelled Anisocytosis Cancelled Microcytosis Cancelled Macrocytosis Cancelled Spherocytes Cancelled Pappenheimer Bodies Cancelled Sickle Cells Cancelled Target Cells Cancelled Tear Drop Cells Cancelled Ovalocytes Cancelled Stomatocytes Cancelled Call-[place] Bodies Cancelled Echinocytes Cancelled Acanthocytes (Spur) Cancelled Rouleaux Cancelled RBC Agglutinates Cancelled Schistocytes Cancelled Sezary Cell Cancelled Sodium 138 (136-145) mmol/L Potassium 4.2 (3.5-5.1) mmol/L Chloride 106 (98-107) mmol/L Carbon Dioxide 22 (21-32) mmol/L Anion Gap 10 (3-11) BUN 9 (6-23) mg/dl Creatinine 0.89 (0.6-1.2) mg/dl Est Cr Clr Drug Dosing Not Reportable Est GFR ( Amer) 70.0 ml/min Est GFR (Non-Af Amer) 60.4 ml/min BUN/Creatinine Ratio 10.1 (10-20) Glucose 114 H (70-99(Fasting)) mg/dl Calcium 9.0 (8.5-10.1) mg/dl Total Bilirubin 0.9 (0.2-1.0) mg/dl AST 17 (13-39) U/L ALT 12 (7-52) U/L Alkaline Phosphatase 74 (34-104) U/L Total Protein 6.7 (6.0-8.3) gm/dl Albumin 3.8 (3.4-5.0) gm/dl Globulin 2.9 (2.5-4.0) gm/dl Albumin/Globulin Ratio 1.3 (0.9-2) Lipase 4 L (11-82) U/L Urine Color Urine Appearance (Clear) Urine pH (4.5-7.5) Ur Specific [place] (1.000-1.030) Urine Protein (Negative) Urine Glucose (UA) (Negative) Urine Ketones (Negative) Urine Blood (Negative) Urine Nitrite (Negative) Urine Bilirubin (Negative) Urine Urobilinogen (Negative) Ur Leukocyte Esterase (Negative) SARS-CoV-2, RNA, NAAT NEGATIVE (NEGATIVE) Blood Parasites ID Cancelled 03/11/22 03/11/22 Range/Units 15:15 15:20 WBC 8.02 RBC 3.94 Hgb 13.3 Hct 38.6 MCV 98.0 MCH 33.8 MCHC 34.5 RDW Std Deviation 48.1 H RDW Coeff of Francisco Javier 13.4 Plt Count 182 MPV 9.9 Immature Gran % (Auto) 0.2 Neut % (Auto) 74.3 Lymph % (Auto) 17.8 [place] % (Auto) 6.6 Eos % (Auto) 0.7 Baso % (Auto) 0.4 Neut # (Auto) 5.95 Lymph # (Auto) 1.43 [place] # (Auto) 0.53 Eos # (Auto) 0.06 Baso # (Auto) 0.03 Immature Gran # (Auto) 0.02 Absolute Nucleated RBC Nucleated RBC % (auto) Neutrophils % (Manual) Band Neutrophils % Lymphocytes % (Manual) Prolymphocyte % Reactive Lymphs % (Man) Monocytes % (Manual) Eosinophils % (Manual) Basophils % (Manual) Metamyelocytes % (Man) Myelocytes % (Man) Promyelocytes % (Man) Blast Cells % (Manual) Plasma Cell % (Manual) Other Cells % Nucleated RBC % Neutrophils # (Manual) Band Neutrophils # Total Absolute Neuts Lymphocytes # (Manual) Prolymphocyte # Reactive Lymphs # Total Abs Lymphocytes Monocytes # (Manual) Eosinophils # (Manual) Basophils # (Manual) Metamyelocytes # (Man) Myelocytes # (Manual) Promyelocytes # (Man) Blast Cells # (Man) Plasma Cell # (Manual) Other Cells # Nucleated RBCs # (Man) Hypersegmented Neuts Hyposegmented Neuts Hypogranular Neuts Large Granular Lymphs # Lrg Granular Lymphs Hairy Cells Smudge Cells Toxic Granulation Toxic Vacuolation Dohle Bodies Sixto Rods Platelet Estimate Hypogranular Platelets Clumped Platelets Giant Platelets Platelet Satelliting RBC Morphology Polychromasia Hypochromasia Poikilocytosis Basophilic Stippling Anisocytosis Microcytosis Macrocytosis Spherocytes Pappenheimer Bodies Sickle Cells Target Cells Tear Drop Cells Ovalocytes Stomatocytes Call-Guide [place] Bodies Echinocytes Acanthocytes (Spur) Rouleaux RBC Agglutinates Schistocytes Sezary Cell Sodium (136-145) mmol/L Potassium (3.5-5.1) mmol/L Chloride (98-107) mmol/L Carbon Dioxide (21-32) mmol/L Anion Gap (3-11) BUN (6-23) mg/dl Creatinine (0.6-1.2) mg/dl Est Cr Clr Drug Dosing Est GFR ( Amer) ml/min Est GFR (Non-Af Amer) ml/min BUN/Creatinine Ratio (10-20) Glucose (70-99(Fasting)) mg/dl Calcium (8.5-10.1) mg/dl Total Bilirubin (0.2-1.0) mg/dl AST (13-39) U/L ALT (7-52) U/L Alkaline Phosphatase (34-104) U/L Total Protein (6.0-8.3) gm/dl Albumin (3.4-5.0) gm/dl Globulin (2.5-4.0) gm/dl Albumin/Globulin Ratio (0.9-2) Lipase (11-82) U/L Urine Color Yellow Urine Appearance Clear (Clear) Urine pH 7.0 (4.5-7.5) Ur Specific [place] 1.009 (1.000-1.030) Urine Protein Negative (Negative) Urine Glucose (UA) Negative (Negative) Urine Ketones Trace H (Negative) Urine Blood Negative (Negative) Urine Nitrite Negative (Negative) Urine Bilirubin Negative (Negative) Urine Urobilinogen Negative (Negative) Ur Leukocyte Esterase Negative (Negative) SARS-CoV-2, RNA, NAAT (NEGATIVE) Blood Parasites ID Imaging Data Radiologist's Impression: Abdomen/Pelvis CT 03/11/22 14:33 CT SCAN OF THE ABDOMEN AND PELVIS WITHOUT IV CONTRAST CLINICAL HISTORY: Generalized abdominal pain. Hernia. COMPARISON STUDY: Abdominal CT dated 05/06/2019. TECHNIQUE: CT scan of the abdomen and pelvis is performed from the lung bases to the proximal femora. Images are reviewed in the axial, sagittal, and coronal planes. IV contrast was not administered for this examination. A dose lowering technique was utilized adhering to the principles of ALARA. CT DOSE: 914.65 mGy.cm FINDINGS: Lung bases: The heart is normal in size and without pericardial effusion. The lung bases are clear noting bibasilar scarring/atelectasis. There is a small hia madi hernia. Liver: The unenhanced liver is normal in size, contour, and attenuation. There is no intrahepatic biliary ductal dilatation. Gallbladder: Surgically absent noting clips in the gallbladder fossa. Spleen: Normal in size and attenuation. Pancreas: The unenhanced pancreas is moderately atrophic and grossly unremarkable. Adrenal glands: Unremarkable. Kidneys: The unenhanced kidneys demonstrate cortical atrophy and are without hydronephrosis. There are no renal calculi identified. There is no evidence of contour deforming renal mass lesion. Abdominal vasculature: The abdominal aorta is normal in course and caliber noting moderate to advanced atherosclerotic calcification. Bowel: There is mild colonic diverticulosis without CT evidence of acute diverticulitis. A portion of the transverse colon is contained within a ventral hernia. No bowel obstruction is seen. The appendix is well-visualized and normal. Peritoneum: There is no intraperitoneal free air or abdominal ascites. There is a complex fat and bowel containing umbilical/periumbilical hernia. This contains a segment of the transverse colon. A fat-containing supraumbilical hernia is seen on image #79. There is a midline surgical scar. Diastases of the rectus musculature is noted in the pelvis. Lymphadenopathy: None. Pelvic viscera: The bladder is normal as visualized. The uterus is surgically absent. No adnexal lesion is seen. There are bilateral fat-containing groin hernias. Skeletal structures: The skeletal structures are osteopenic. There is mild to moderate lumbosacral spondylosis. No lytic or blastic lesions are seen. IMPRESSION: 1. No acute infectious or inflammatory findings are identified in the abdomen or pelvis. 2. There is a complex fat and bowel containing umbilical/periumbilical hernia as detailed above. This is unchanged from previous. 3. There is no bowel obstruction. 4. Mild colonic diverticulosis without CT evidence of acute diverticulitis. 5. Additional findings as above. ACT 112: Negative or not required by law. Electronically signed by: Naren Kingsley M.D. 03/11/2022 3:14 PM ECG Data Attestation: I personally reviewed and interpreted this ECG as follows: Indication: + abdominal pain MDM Narrative This patient comes in as described above she has known ventral hernias she has had ongoing issues with pain and thinks is gotten worse over the last couple days. She has stable vital signs is afebrile she has had no vomiting. IV a ccess established was hydrated with IV normal saline. she was given morphine 2 mg IV and Zofran 4 mg IV for pain and nausea management in the meantime. I did review her records from [facility] and she did have a CAT scan 1 month ago which showed a large periumbilical hernia hernia containing fat and nonobstructed transverse colon and small bowel. I did order blood work here as well as a repeat noncontrast CAT scan to ensure that none of this has become incarcerated as her symptoms of gotten worse. No white count or fever to suggest infection. she has no severe electrolyte or metabolic abnormalities. COVID testing was negative. CAT scan shows no significant change no definite incarceration however she has a large hernia and her symptoms are continue to get worse. I did consult Dr. Valencia to see the patient in the ER as he seen her before he did promptly see her and is going to take her to the operating room for surgery. Continuous cardiac monitoring: An order was placed in EMR for continuous cardiac monitoring. Upon my interpretation the patient was noted to be normal sinus or with a rate of 90. Impression & Plan Abdominal pain, Ventral hernia, Lab test negative for COVID-19 virus, S/P cholecystectomy Discharge Plan Visit Data Chief Complaint: Abdominal Pain Stated Complaint: ABDOMINAL PAIN ED Provider: Tera Maay Discharge Problem: Abdominal pain, Ventral hernia, Lab test negative for COVID-19 virus, S/P cholecystectomy Patient Disposition: Still a Patient Discharge Instructions Interventions: ED Discharge Assessment Last Done: 03/11/22 17:23
--- NOTE | 2022-03-11 15:16 | CT Scan Report ---
CT SCAN OF THE ABDOMEN AND PELVIS WITHOUT IV CONTRAST CLINICAL HISTORY: Generalized abdominal pain. Hernia. COMPARISON STUDY: Abdominal CT dated 05/06/2019. TECHNIQUE: CT scan of the abdomen and pelvis is performed from the lung bases to the proximal femora. Images are reviewed in the axial, sagittal, and coronal planes. IV contrast was not administered for this examination. A dose lowering technique was utilized adhering to the principles of ALARA. CT DOSE: 914.65 mGy.cm FINDINGS: Lung bases: The heart is normal in size and without pericardial effusion. The lung bases are clear no ting bibasilar scarring/atelectasis. There is a small hiatal hernia. Liver: The unenhanced liver is normal in size, contour, and attenuation. There is no intrahepatic kennedy iary ductal dilatation. Gallbladder: Surgically absent noting clips in the gallbladder fossa. Spleen: Normal in size and attenuation. Pancreas: The unenhanced pancreas is moderately atrophic and grossly unremarkable. Adrenal glands: Unremarkable. Kidneys: The unenhanced kidneys demonstrate cortical atrophy and are without hydronephrosis. There ar e no renal calculi identified. There is no evidence of contour deforming renal mass lesion. Abdominal vasculature: The abdominal aorta is normal in course and caliber noting moderate to advance d atherosclerotic calcification. Bowel: There is mild colonic diverticulosis without CT evidence of acute diverticulitis. A portion of the transverse colon is contained within a ventral hernia. No bowel obstruction is seen. The appendi x is well-visualized and normal. Peritoneum: There is no intraperitoneal free air or abdominal ascites. There is a complex fat and bow el containing umbilical/periumbilical hernia. This contains a segment of the transverse colon. A fat- containing supraumbilical hernia is seen on image #79. There is a midline surgical scar. Diastases of the rectus musculature is noted in the pelvis. Lymphadenopathy: None. Pelvic viscera: The bladder is normal as visualized. The uterus is surgically absent. No adnexal lesi on is seen. There are bilateral fat-containing groin hernias. Skeletal structures: The skeletal structures are osteopenic. There is mild to moderate lumbosacral sp ondylosis. No lytic or blastic lesions are seen. IMPRESSION: 1. No acute infectious or inflammatory findings are identified in the abdomen or pelvis. 2. There is a complex fat and bowel containing umbilical/periumbilical hernia as detailed above. This is unchanged from previous. 3. There is no bowel obstruction. 4. Mild colonic diverticulosis without CT evidence of acute diverticulitis. 5. Additional findings as above. ACT 112: Negative or not required by law. Electronically signed by: Naren Kingsley M.D. 03/11/2022 3:14 PM
[2022-03-11 15:28] LABS: Basophils # (auto) 0.03 K/uL (0-0.2); Basophils % (auto) 0.4 %; Eosinophils # (auto) 0.06 K/uL (0-0.50); Eosinophils % (auto) 0.7 %; Hematocrit (blood only) 38.6 % (34.1-44.9); Hemoglobin 13.3 g/dl (12.0-16.0); Immature Granulocytes # (auto) 0.02 K/uL (0.00-0.02); Immature Granulocytes % (auto) 0.2 %; Lymphocytes # (auto) 1.43 K/uL (1.2-3.4); Lymphocytes % (auto) 17.8 %; Mean Corpuscular Hemoglobin 33.8 pg (25.0-34.0); Mean Corpuscular Hgb Conc 34.5 g/dL (32.0-36.0); Mean Platelet Volume 9.9 fL (9.4-12.3); Monocytes # (auto) 0.53 K/uL (0.24-0.82); Monocytes % (auto) 6.6 %; Neutrophils # (auto) 5.95 K/uL (1.4-6.5); Neutrophils % (auto) 74.3 %; Platelet Count 182 K/uL (130-400); RDW Coefficient of Variation 13.4 % (11.5-14.5); RDW Standard Deviation 48.1 fL (36.4-46.3); Red Blood Count 3.94 M/uL (3.93-5.22); White Blood Count 8.02 K/ul (4.8-10.8)
[2022-03-11 15:29] LABS: Alanine Aminotransferase 12 U/L (7-52); Albumin Globulin Ratio 1.3 (0.9-2); Albumin Level 3.8 gm/dl (3.4-5.0); Alkaline Phosphatase 74 U/L (34-104); Anion Gap 10 (3-11); Aspartate Aminotransferase 17 U/L (13-39); BUN Creatinine Ratio 10.1 (10-20); Bilirubin,Total 0.9 mg/dl (0.2-1.0); Blood Urea Nitrogen 9 mg/dl (6-23); Carbon Dioxide 22 mmol/L (21-32); Chloride 106 mmol/L (98-107); Est GFR (Non-African American) 60.4 ml/min; Globulin 2.9 gm/dl (2.5-4.0); Glucose 114 mg/dl (70-99(Fasting)); Lipase 4 U/L (11-82); Potassium 4.2 mmol/L (3.5-5.1); Sodium 138 mmol/L (136-145); Total Protein 6.7 gm/dl (6.0-8.3)
[2022-03-11 15:45] LABS: Appearance Urine Clear (Clear); Bilirubin Urine Negative (Negative); Blood Urine Negative (Negative); Color Urine Yellow; Glucose Urine UA Negative (Negative); Ketones Urine Trace (Negative); Leukocyte Esterase Urine Negative (Negative); Nitrite Urine Negative (Negative); Protein Urine Negative (Negative); Specific Gravity Urine 1.009 (1.000-1.030); Urobilinogen Urine Negative (Negative)
--- NOTE | 2022-03-11 16:35 | Surgery Consultation ---
Date of Consultation March 11, 2022 Assessment & Plan (1) Abdominal pain: (2) Incarcerated umbilical hernia: pt is a 82 year-old female who presents to ER with 2-3 days history periumbilical pain, with nausea and vomiting, pt had CT scan- periumbilical hernia, contain fat and colon, IMP: incarcerated periumbilical hernia, Plan, I recommend to do open repair incarcerated periumbilical hernia possible mesh, D/w benefits, risks and alternatives of the surgery, the risks - infection, bleeding, injury other organs, hernia recurrence, seroma, complications relate to mesh, Mi, DVT, stroke, , pt and her son understood, they agree with surgery, pt signed informed consent, I answered all questions, pre-op antibiotic, History of Present Illness Reason for Consultation: periumbilical hernia, abdominal pain Requesting Physician: Tera Maya MD History of Present Illness Chief complaint: Abdominal Pain Stated complaint: ABDOMINAL PAIN Time Seen by Provider: 03/11/22 14:19 Source: patient and family (Son who is at the bedside) Mode of arrival: ambulatory Limitations: no limitations History of Present Illness Maximum Pain Intensity: 7 This patient is an 82-year-old female who comes in complaining of abdominal pain. She says its worse when she stands up. She says she is had a hernia for the last 2 or 3 years and gets pain off and on it also tends get worse after she eats certain things is gotten worse over the last 2 to 3 days. She has been working as a nurse aide and she does do a lot of moving there is been no direct trauma. No fever chills or nausea or vomiting normal bowel movements without blood or melena no dysuria hematuria no numbness or weakness. She did see Dr. Valencia on September 03 and had a CAT scan and has not had follow-up yet. Her CAT scan showed a large periumbilical hernia containing fat and nonobstructed transverse colon and small bowel with also 2 small supraumbilical fat-containing ventral hernias. Home Medications Medication Instructions Recorded Confirmed Type cetirizine 10 mg tablet (Zyrtec) 10 mg PO DAILY PRN Allergy Symptoms 05/06/19 05/06/19 History lisinopril 10 1 tab PO DAILY 05/06/19 05/06/19 History mg-hydrochlorothiazide 12.5 mg tablet Allergies Allergy/AdvReac Type Severity Reaction Status Date / Time No Known Allergies Allergy Unverified 05/25/19 10:04 Past Med/Surg History Medical History(Updated 03/11/22 @ 14:40 by Tera Maya MD) Acute pancreatitis Choledocholithiasis with acute cholecystitis with obstruction Malignant neoplasm of other specified sites of body of uterus (10/27/14) "Postmenopausal vaginal bleeding 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 Status post total abdominal hysterectomy bilateral salpingo-oophorectomy and lymph node dissection 12/03/2014 stage [id number] Status post completion of radiation therapy utilizing HDR therapy 3 HDR treatments were given 700 cGy each for a total 2100 cGy" On 01/26/15 17:36 Sofia Martinez wrote "Postmenopausal vaginal bleeding 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 Status post total abdominal hysterectomy bilateral salpingo-oophorectomy and lymph node dissection 12/03/2014 stage [id number]" Family History Other No significant family history Social History Smoking Status: Never smoker Second Hand Exposure: No; Hx Alcohol Use: Yes Alcohol type: hard liquor Hx Substance Use: No Preferred Language: Moldovan Communication Ability: Effective Drilling Machine Operator Required: No Beliefs That Will Affect Care: None Current Living Situation: Alone Feels Safe at Home: Yes Assistive Devices: Denture - Upper, Denture - Lower and Glasses Review of Systems A total of 10 systems reviewed and were otherwise negative Allergies Allergy/AdvReac Type Severity Reaction Status Date / Time No Known Allergies Allergy Verified 03/11/22 16:42 Home Medications Medication Instructions Recorded Confirmed Type lisinopril 10 1 tab PO DAILY 05/06/19 05/06/19 History mg-hydrochlorothiazide 12.5 mg tablet Patient History Medical History (Updated 03/11/22 @ 16:40 by Jessica Valencia MD) Acute pancreatitis Choledocholithiasis with acute cholecystitis with obstruction Malignant neoplasm of other specified sites of body of uterus (10/27/14) "Postmenopausal vaginal bleeding 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 Status post total abdominal hysterectomy bilateral salpingo-oophorectomy and lymph node dissection 12/03/2014 stage [id number] Status post completion of radiation therapy utilizing HDR therapy 3 HDR treatments were given 700 cGy each for a total 2100 cGy" On 01/26/15 17:36 Sofia Martinez wrote "Postmenopausal vaginal bleeding 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 Status post total abdominal hysterectomy bilateral salpingo-oophorectomy and lymph node dissection 12/03/2014 stage [id number]" Family History Other No significant family history Social History Smoking Status: Never smoker Second Hand Exposure: No; Hx Alcohol Use: Yes Alcohol type: hard liquor Hx Substance Use: No Preferred Language: Moldovan Communication Ability: Effective Drilling Machine Operator Required: No Beliefs That Will Affect Care: None Current Living Situation: Alone Feels Safe at Home: Yes Assistive Devices: Denture - Upper, Denture - Lower and Glasses Physical Exam Constitutional: WD/WN, vitals as above obesity Eyes: PERRL, conjunctivae normal, anicteric sclerae Neck: trachea midline, no thyromegaly Respiratory: normal respiratory effort, lungs clear to auscultation Cardiovascular: RRR, no murmur, no edema Gastrointestinal (Abdomen): soft, tenderness at periumbilical and right side abdomen with bulging, with rebound pain, the bulging mass is not reducible, periumbilical hernia +, no redness, BS +, Musculoskeletal: no cyanosis or clubbing, extremities motor strength 5/5 Neurologic: patellar DTR's 2+ bilat, sensation intact Psychiatric: A+Ox3, euthymic affect Results & Data ([facility]) Vital Signs (Past 12 Hours) Vital Signs Temp Pulse Resp BP Pulse Ox O2 Del Method 03/11/22 15:30 79 17 143/71 H 99 03/11/22 15:14 80 18 148/91 H 99 03/11/22 14:45 84 20 148/94 H 97 03/11/22 14:33 97 Room Air 03/11/22 14:07 36.9 C 95 H 16 148/93 H 98 Laboratory Results Abnormal lab results 03/11/22 03/11/22 03/11/22 Range/Units 14:58 15:15 15:20 RDW Std Deviation 48.1 H (36.4-46.3) fL Glucose 114 H (70-99(Fasting)) mg/dl Lipase 4 L (11-82) U/L Urine Ketones Trace H (Negative) Diagnostic Findings CT SCAN OF THE ABDOMEN AND PELVIS WITHOUT IV CONTRAST CLINICAL HISTORY: Generalized abdominal pain. Hernia. COMPARISON STUDY: Abdominal CT dated 05/06/2019. TECHNIQUE: CT scan of the abdomen and pelvis is performed from the lung bases to the proximal femora. Images are reviewed in the axial, sagittal, and coronal planes. IV contrast was not administered for this examination. A dose lowering technique was utilized adhering to the principles of ALARA. CT DOSE: 914.65 mGy.cm FINDINGS: Lung bases: The heart is normal in size and without pericardial effusion. The lung bases are clear noting bibasilar scarring/atelectasis. There is a small hiatal hernia. Liver: The unenhanced liver is normal in size, contour, and attenuation. There is no intrahepatic biliary ductal dilatation. Gallbladder: Surgically absent noting clips in the gallbladder fossa. Spleen: Normal in size and attenuation. Pancreas: The unenhanced pancreas is moderately atrophic and grossly unremarkable. Adrenal glands: Unremarkable. Kidneys: The unenhanced kidneys demonstrate cortical atrophy and are without hydronephrosis. There are no renal calculi identified. There is no evidence of contour deforming renal mass lesion. Abdominal vasculature: The abdominal aorta is normal in course and caliber noting moderate to advanced atherosclerotic calcification. Bowel: There is mild colonic diverticulosis without CT evidence of acute diverticulitis. A portion of the transverse colon is contained within a ventral hernia. No bowel obstruction is seen. The appendix is well-visualized and normal. Peritoneum: There is no intraperitoneal free air or abdominal ascites. There is a complex fat and bowel containing umbilical/periumbilical hernia. This contains a segment of the transverse colon. A fat-containing supraumbilical hernia is seen on image #[id number]. There is a midline surgical scar. Diastases of the rectus musculature is noted in the pelvis. Lymphadenopathy: None. Pelvic viscera: The bladder is normal as visualized. The uterus is surgically absent. No adnexal lesion is seen. There are bilateral fat-containing groin hernias. Skeletal structures: The skeletal structures are osteopenic. There is mild to moderate lumbosacral spondylosis. No lytic or blastic lesions are seen. IMPRESSION: 1. No acute infectious or inflammatory findings are identified in the abdomen or pelvis. 2. There is a complex fat and bowel containing umbilical/periumbilical hernia as detailed above. This is unchanged from previous. 3. There is no bowel obstruction. 4. Mild colonic diverticulosis without CT evidence of acute diverticulitis. 5. Additional findings as above. ACT 112: Negative or not required by law.
[2022-03-11] MEDS ORDERED: ceFAZolin 2000MG 2,000 MG/15 ML SYR IV ONE (16:45)
--- NOTE | 2022-03-11 16:45 | History & Physical Bridge Note ---
Date of Service March 11, 2022 History & Physical Bridge Note I have examined the patient, reviewed the History & Physical and in the interval since the performance of the History & Physical I have noted the following changes of clinical significance: no changes noted
--- NOTE | 2022-03-11 16:50 | Anesthesiology Consultation ---
Date of Service March 11, 2022 Assessment & Plan Chart Review Chart Review: Acceptable Risk for Surgery Consults Requested none History Surgery Operation Date: 03/11/22 16:45 Proposed Procedures p Umbilical Hernia Repair - Jessica Valencia MD Height/Weight Height: 5 ft 4 in Weight: 93.2 kg Allergies Allergy/AdvReac Type Severity Reaction Status Date / Time No Known Allergies Allergy Verified 03/11/22 16:42 Medications Home Medications Medication Instructions Recorded Confirmed Last Taken lisinopril 10 1 tab PO DAILY 05/06/19 03/11/22 03/11/22 mg-hydrochlorothiazide 12.5 mg tablet Past Medical History Medical History (Updated 03/11/22 @ 16:40 by Jessica Valencia MD) Acute pancreatitis Choledocholithiasis with acute cholecystitis with obstruction Malignant neoplasm of other specified sites of body of uterus (10/27/14) "Postmenopausal vaginal bleeding 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 Status post total abdominal hysterectomy bilateral salpingo-oophorectomy and lymph node dissection 12/03/2014 stage [id number] Status post completion of radiation therapy utilizing HDR therapy 3 HDR treatments were given 700 cGy each for a total 2100 cGy" On 01/26/15 17:36 Sofia Martinez wrote "Postmenopausal vaginal bleeding 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 Status post total abdominal hysterectomy bilateral salpingo-oophorectomy and lymph node dissection 12/03/2014 stage [id number]" Past Family History Family History Other No significant family history Social History Smoking Status: Never smoker Hx Alcohol Use: Yes Alcohol type: hard liquor alcohol intake frequency: 0-2 drinks per day Hx Substance Use: No substance use type: does not use Physical Exam Vital Signs Last Vital Signs Temp 36.9 C 03/11/22 14:07 Pulse 79 03/11/22 15:30 Resp 17 03/11/22 15:30 BP 143/71 H 03/11/22 15:30 Pulse Ox 99 03/11/22 15:30 O2 Del Method 03/11/22 14:33 Testing Laboratory Results 03/11/22 15:20 03/11/22 14:58 Urine Color Yellow 03/11/22 15:15 Urine Appearance Clear (Clear) 03/11/22 15:15 Urine pH 7.0 (4.5-7.5) 03/11/22 15:15 Ur Specific [place] 1.009 (1.000-1.030) 03/11/22 15:15 Urine Protein Negative (Negative) 03/11/22 15:15 Urine Glucose (UA) Negative (Negative) 03/11/22 15:15 Urine Ketones Trace (Negative) H 03/11/22 15:15 Urine Nitrite Negative (Negative) 03/11/22 15:15 Ur Leukocyte Esterase Negative (Negative) 03/11/22 15:15
[2022-03-11] MEDS ORDERED: LIDOCAINE 1% LOCAL 20 ML VIAL ONE (16:52)
[2022-03-11] MEDS ORDERED: BACITRACIN OINT 15 GM TUBE ONE (16:52)
[2022-03-11] MEDS ORDERED: BUPIVACAINE 0.5 % 5 MG/1 ML MPF 30ML VIAL ONE (16:52)
[2022-03-11] MEDS ORDERED: LIDOCAINE 2% 2 ML VIAL/AMP(20MG/ML) INFIL ONE ×2 (16:59→17:02)
[2022-03-11] MEDS ORDERED: PROPOFOL IV EMULSION 10 MG/ML 20 ML VIAL IV ONE (16:59)
[2022-03-11] MEDS ORDERED: ONDANSETRON INJ 2 MG/ML 2 ML VIAL ONE (17:00)
[2022-03-11] MEDS ORDERED: fentaNYL citrate 100 MCG/2 ML VIAL ONE ×4 (17:01→19:37)
[2022-03-11] MEDS ORDERED: PROMETHAZINE HCL 12.5 MG in SODIUM CHLORIDE 0.9% 50 ML IV PRN (17:26)
[2022-03-11] MEDS ORDERED: ONDANSETRON INJ 2 MG/ML 2 ML VIAL IV PRN ×2 (17:26→21:04)
[2022-03-11] MEDS ORDERED: ePHEDrine sulfate 50 MG/ML AMP IV PRN (17:26)
[2022-03-11] MEDS ORDERED: ATROPINE SULFATE 0.1 MG/ML 10ML SYR IV PRN (17:26)
[2022-03-11] MEDS ORDERED: ceFAZolin 330 MG/ML 1 GM VIAL ONE (17:44)
[2022-03-11] MEDS ORDERED: SUGAMMADEX SODIUM 200 MG/2 ML VIAL IV ONE (18:48)
--- NOTE | 2022-03-11 19:11 | Post Operative Brief Note ---
Immediate Post Op Note v1 Date of Surgery March 11, 2022 Pre & Post Diagnosis Operation Date: 03/11/22 16:45 Pre-Op Diagnosis: Incarcerated umbilical hernia. Post-Op Diagnosis: Incarcerated recurrent umbilical hernia and 2 ventral hernia, . I identified the patient and participated in the time-out.: Yes Procedure Operation Date: 03/11/22 16:45 Actual Procedures p open repair Umbilical hernia and 2 ventral with mesh. - Jessica Valencia MD Surgeon Jessica Valencia MD Biosecurity Officer surgical services assistant Estimated Blood Loss 10 Findings Consistent with Post-Op Diagnosis incarcerated recurrent umbilical hernia, 2 ventral hernia, total hernia size about 6x8cm Fluids 1100ml Specimens hernia sac Anesthesia Type General Complications none Disposition Accompanied Patient To Recovery: Yes
[2022-03-11] MEDS ORDERED: DEXAMETHASONE SOD INJ 4 MG/ML VIAL ONE (19:16)
[2022-03-11] MEDS: fentaNYL citrate 100 MCG/2 ML VIAL IV PRN ×4 (19:24→19:43)
--- NOTE | 2022-03-11 19:50 | Anesthesiology Progress Note ---
Date of Service March 11, 2022 Anesthesia Post Procedure Vital Signs Vital Signs: Temp Pulse Pulse Resp BP BP Pulse Ox 03/11/22 19:17 36.1 C L 92 H 23 192/90 H 100 03/11/22 15:30 79 17 143/71 H 99 03/11/22 15:14 80 18 148/91 H 99 03/11/22 14:45 84 20 148/94 H 97 03/11/22 14:33 97 03/11/22 14:07 36.9 C 95 H 16 148/93 H 98 O2 Del Method O2 Flow Rate 03/11/22 19:17 Nasal Cannula 4 03/11/22 15:30 03/11/22 15:14 03/11/22 14:45 03/11/22 14:33 Room Air 03/11/22 14:07 Pain Intensity Abdomen: Pain Intensity: 9 Transfer of Care Handoff Completed per policy Notes Mental Status: alert / awake / arousable and participated in evaluation Patient Amnestic to Procedure: Yes Nausea / Vomiting: adequately controlled Pain: adequately controlled Airway Patency, RR, SpO2: stable & adequate BP & HR: stable & adequate Hydration State: stable & adequate Anesthetic Complications: no major complications apparent
[2022-03-11] MEDS ORDERED: HYDROmorphone INJ 1 MG/ML SYRINGE ONE (19:51)
[2022-03-11] MEDS ORDERED: HYDROmorphone INJ 0.5 MG/0.5 ML SYR ONE ×2 (19:53→20:02)
[2022-03-11] MEDS: HYDROmorphone INJ 2 MG/ML SYR/VIAL IV PRN ×2 (19:55→20:03)
[2022-03-11] MEDS: LACTATED RINGER'S 1,000 ML IV SCH (21:00)
[2022-03-11] MEDS ORDERED: HYDROmorphone INJ 0.5 MG/0.5 ML SYR IV PRN (21:04)
[2022-03-11] MEDS ORDERED: oxyCODONE/ACETAMINOPHEN 5mg/325mg TAB PO PRN (21:04)
[2022-03-11] MEDS: LISINOPRIL/HCTZ 10/12.5MG TAB PO SCH (22:48)
--- NOTE | 2022-03-11 23:14 | Operative Report (OR) ---
DATE OF PROCEDURE: 03/11/2022 PREOPERATIVE DIAGNOSES: Incarcerated umbilical hernia and 2 ventral hernias. POSTOPERATIVE DIAGNOSES: Incarcerated umbilical hernia and 2 ventral hernias. OPERATIVE PROCEDURE: Open repair of umbilical hernia and 2 ventral hernias with mesh. SURGEON: Jessica Valencia MD. ANESTHESIA: General. ESTIMATED BLOOD LOSS: About 10 mL. FINDINGS: Incarcerated recurrent umbilical hernia and incarcerated 2 ventral hernias, the total maximilian ia size about 6 x 8 cm. COMPLICATIONS: None. INDICATIONS FOR THE PROCEDURE: This is an 82-year-old female who presented to ED with 2 days abdomin al pain and the patient had a CT scan diagnosis of umbilical hernia and ventral hernia. I recommende d to do the open repair of umbilical hernia and the ventral hernia. I did talk to the patient about the benefit, risk, alternate procedure. I indicated the risks may include, but not limited to, such as bleeding, infection, hernia recurrence, seroma, complication related to mesh, bowel obstruction, m yocardial infarction, DVT, stroke, even . The patient understands. She signed informed consent and I answered all questions. DETAILS OF PROCEDURE: After we identified the patient and verified the procedure, we brought the pat ient to the OR, put the patient in the supine position on the OR table. The patient received SCD on bilateral legs to prevent DVT. Also, patient received 2 grams of Ancef IV for prophylactic antibioti c. The patient received general anesthesia without difficulty. The abdomen was prepped and draped i n routine sterile fashion. After timeout, I made a transverse incision just below the umbilicus, the incision length about 10 cm and then we dissected deep through the subcutaneous layer. Then, we fou nd one of the ventral hernias just on the right side of the abdomen near umbilicus. Then we mobilize d the hernia sac and then we found the patient had an incarcerated ventral hernia with contents of fa t and colon. Once we opened the hernia sac, we returned the colon and fatty tissue back to the abdominal cavity an d there were some adhesive tissue. We used Bovie to take down. Once we returned and then we found t he patient had a recurrent right umbilical hernia with incarceration. At this moment, also we found the patient had one ventral hernia just above umbilicus and then we made another 4 cm incision just a juan c the umbilicus. Once we mobilized the umbilicus, we completely returned the incarcerated fat tis paulino back to the abdominal cavity and the umbilical hernia size about 2 x 2 cm and above umbilicus, th e ventral hernia size about 1.5 x 1.5 cm. Again, it is an incarcerated ventral hernia. Once I compl etely reduced the fatty tissue back to the abdominal cavity, we combined the umbilical and 2 ventral hernias, total size about 6 cm x 8 cm. At this moment, I resected all the 3 hernia sacs and sent to pathology. Hemostasis was obtained. I chose a 10 x 15 cm mesh to repair the 3 hernias. We used 0 Ethibond to suture the mesh to fascia i nterruptedly 360-degree to cover the 3 hernias. Then, we tied each suture one by one, the mesh seate d nicely, no tension. Hemostasis obtained. Then I re-attached the umbilicus to the fascial layer by using 2-0 Vicryl, closed subcutaneous layer by using 2-0 Vicryl interruptedly, closed the skin incis ion by using staple. Then, we put the dressing on. The patient tolerated the procedure well. All i nstrument, needle and sponge counts were correct x2 at the end of the case. The patient was transfer red to recovery room in stable condition. The specimen was sent to pathology. After the procedure, I did talk to the patient and the patient's family member about the OR finding and the procedure we d id, they understand. Job ID: [id number]
[2022-03-12] MEDS: ceFAZolin 1000MG 1,000 MG/7.5 ML SYR IV SCH ×2 (01:32→10:05)
[2022-03-12] MEDS: LACTATED RINGER'S 1,000 ML IV SCH (06:19)
[2022-03-12] MEDS ORDERED: ACETAMINOPHEN 325 MG TAB PO PRN (09:00)
[2022-03-12 09:17] LABS: Basophils # (auto) 0.01 K/uL (0-0.2); Basophils % (auto) 0.1 %; Hemoglobin 13.7 g/dl (12.0-16.0); Immature Granulocytes # (auto) 0.07 K/uL (0.00-0.02); Immature Granulocytes % (auto) 0.5 %; Lymphocytes # (auto) 1.02 K/uL (1.2-3.4); Lymphocytes % (auto) 7.5 %; Mean Corpuscular Hemoglobin 33.3 pg (25.0-34.0); Mean Corpuscular Hgb Conc 34.3 g/dL (32.0-36.0); Mean Corpuscular Volume 97.3 fL (80.0-100.0); Mean Platelet Volume 10.1 fL (9.4-12.3); Monocytes # (auto) 0.79 K/uL (0.24-0.82); Monocytes % (auto) 5.8 %; Neutrophils # (auto) 11.63 K/uL (1.4-6.5); Neutrophils % (auto) 86.1 %; Platelet Count 198 K/uL (130-400); RDW Coefficient of Variation 13.5 % (11.5-14.5); RDW Standard Deviation 48.4 fL (36.4-46.3); Red Blood Count 4.11 M/uL (3.93-5.22); White Blood Count 13.52 K/ul (4.8-10.8)
--- NOTE | 2022-03-12 09:17 | Surgery Progress Note ---
Date of Service March 12, 2022 Assessment & Plan (1) Abdominal pain: (2) Incarcerated umbilical hernia: Plan: pt is a 82 year-old female who presents to ER with 2-3 days history periumbilical pain, with nausea and vomiting, pt had CT scan- periumbilical hernia, contain fat and colon, IMP: incarcerated periumbilical hernia, Plan, I recommend to do open repair incarcerated periumbilical hernia possible mesh, D/w benefits, risks and alternatives of the surgery, the risks - infection, bleeding, injury other organs, hernia recurrence, seroma, complications relate to mesh, Mi, DVT, stroke, , pt and her son understood, they agree with surgery, pt signed informed consent, I answered all questions, pre-op antibiotic, 03/12/2022 9:15AM, F/U S/P open repair umbilical and 2 ventral hernia with mesh, POD 1 doing fine, tolerated diet, D/C home today, the post-op care instruction was given, F/U mo 2 weeks, Admission and Anticipated Discharge Date Admission Date: March 11, 2022 Subjective F/u S/P open repair umbilical and 2 ventral hernia with mesh, POD 1 pt is doing fine, good control incision pain with pain meds, pt tolerated clear diet, no vomiting, no fever, Physical Exam Constitutional: WD/WN, vitals as above Eyes: PERRL, conjunctivae normal, anicteric sclerae Neck: trachea midline, no thyromegaly Respiratory: normal respiratory effort, lungs clear to auscultation Cardiovascular: RRR, no murmur, no edema Gastrointestinal (Abdomen): soft, mild tenderness at incision site, no rebound pain, no distend, BS +, the incision intact, no redness, Musculoskeletal: no cyanosis or clubbing, extremities motor strength 5/5 Neurologic: patellar DTR's 2+ bilat, sensation intact Psychiatric: A+Ox3, euthymic affect Results & Data ([facility]) Vital Signs (Past 12 Hours) Vital Signs Temp Pulse Resp BP Pulse Ox Pulse Ox O2 Del Method 03/12/22 08:28 Nasal Cannula 03/12/22 08:11 36.6 C 81 16 117/75 91 03/12/22 04:09 36.6 C 83 18 145/84 H 95 Room Air 03/12/22 03:50 92 07/17/22 22:30 36.7 C 98 H 18 154/87 H 93 Room Air 03/11/22 23:30 36.7 C 87 16 129/84 94 Nasal Cannula 03/11/22 23:21 Nasal Cannula 03/11/22 22:04 Room Air 03/11/22 21:30 36.6 C 91 H 18 129/85 93 Nasal Cannula O2 Del Method O2 Flow Rate 03/12/22 08:28 03/12/22 08:11 03/12/22 04:09 03/12/22 03:50 Room Air 03/11/22 22:30 03/11/22 23:30 2 03/11/22 23:21 2 03/11/22 22:04 03/11/22 21:30 2 Laboratory Results Abnormal lab results 03/11/22 03/11/22 03/11/22 Range/Units 14:58 15:15 15:20 RDW Std Deviation 48.1 H (36.4-46.3) fL Glucose 114 H (70-99(Fasting)) mg/dl POC Glucose (70-99) mg/dl Lipase 4 L (11-82) U/L Urine Ketones Trace H (Negative) 03/11/22 Range/Units 21:18 RDW Std Deviation (36.4-46.3) fL Glucose (70-99(Fasting)) mg/dl POC Glucose 141 H (70-99) mg/dl Lipase (11-82) U/L Urine Ketones (Negative) (1) Abdominal pain Abdominal location: periumbilical Qualified Code(s): R10.33 - Periumbilical pain
[2022-03-12 09:41] LABS: Albumin Globulin Ratio 1.3 (0.9-2); Albumin Level 3.8 gm/dl (3.4-5.0); BUN Creatinine Ratio 10.3 (10-20); Bilirubin,Total 0.9 mg/dl (0.2-1.0); Calcium 8.3 mg/dl (8.5-10.1); Creatinine Clr Calc Pharmacy 55.2 ml/min; Est GFR (African American) 71.9 ml/min; Globulin 2.9 gm/dl (2.5-4.0); Total Protein 6.7 gm/dl (6.0-8.3)
[2022-03-12] MEDS: LISINOPRIL/HCTZ 10/12.5MG TAB PO SCH (10:02)
--- NOTE | 2022-03-12 12:35 | Electrocardiogram Report ---
Test Reason : Blood Pressure : / mmHG Vent. 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
--- NOTE | 2022-03-13 04:51 | Discharge Summary (DS) ---
DATE OF ADMISSION: 03/11/2022. DATE OF DISCHARGE: 03/12/2022. ADMISSION DIAGNOSIS: Incarcerated umbilical and ventral hernia. DISCHARGE DIAGNOSIS: Incarcerated umbilical hernia and ventral hernia. PROCEDURE: Open repair of umbilical hernia and two ventral hernias with mesh. SURGEON: Jessica Valencia MD DETAILS OF DISCHARGE SUMMARY: This is an 82-year-old female who presented to the ED with 2-day history of abdominal pain. The patient had a CT scan diagnosis of umbilical hernia with ventral hernia containing the colon and we took the patient to the OR. We did open repair of umbilical hernia and two ventral hernias with mesh. The patient tolerated the procedure well. After the procedure, the patient was transferred to recovery room and later on transferred to regular floor. The patient is doing fine and good control of incision pain. The patient tolerated a clear diet. No nausea, no vomiting, no fever. PHYSICAL EXAMINATION: VITAL SIGNS: Temperature is 36.6, respiratory rate is 16, heart rate 87, blood pressure 117/75, O2 saturation 91% on room air. GENERAL: The patient is alert, awake, oriented x3. HEENT: Within normal limitation. NEUROLOGIC: Intact. CHEST: Bilateral lung sounds clear. HEART: Normal S1 and S2. No murmur. ABDOMEN: Soft, mild tenderness on the incision site. No rebound pain, no distend. The incision is intact. No redness. Bowel sounds positive. EXTREMITIES: No edema. The patient wanted to go home. We gave the patient postoperative care instructions and I will follow up the patient in 2 weeks. The patient understands. Job ID: [id number] [facility]
== END 2022-03-12 11:57 | disposition home or self-care (01) | DRG 355 ==
LOC: ED 14:07 → OR 17:27 → 3N 19:18

== ENCOUNTER 2024-10-14 10:41 | Inpatient (IN) ==
[2024-10-14 11:08] LABS: iSTAT Creatinine 0.9 mg/dl (0.6-1.3); iSTAT Hemoglobin 14.3 g/dl (12.0-16.0); iSTAT Ionized Calcium 1.2 mmol/l (1.12-1.32); iSTAT Potassium 3.3 mmol/L (3.3-5.0)
[2024-10-14 11:27] LABS: Basophils # (auto) 0.03 K/uL (0.00-0.20); Basophils % (auto) 0.2 %; Eosinophils # (auto) 0.01 K/uL (0.00-0.50); Eosinophils % (auto) 0.1 %; Hematocrit (blood only) 41.2 % (37.0-47.0); Immature Granulocytes # (auto) 0.19 K/uL (0.01-0.20); Lymphocytes % (auto) 6.8 %; Mean Corpuscular Hemoglobin 31.9 pg (25.0-34.0); Mean Corpuscular Volume 93.8 fL (80.0-100.0); Mean Platelet Volume 10.6 fL (9.4-12.4); Monocytes # (auto) 1.48 K/uL (0.11-0.59); Monocytes % (auto) 7.7 %; Neutrophils # (auto) 16.12 K/uL (1.40-6.50); Neutrophils % (auto) 84.2 %; Platelet Count 216 K/uL (130-400); RDW Coefficient of Variation 12.4 % (11.5-14.5); RDW Standard Deviation 43.2 fL (36.4-46.3); Red Blood Count 4.39 M/uL (4.20-5.40); White Blood Count 19.13 K/ul (4.8-10.8)
[2024-10-14] MEDS: OPTIRAY 320 125ml IV ONE (11:28)
--- NOTE | 2024-10-14 11:37 | Emergency Department Note ---
Impression & Plan Stroke-like symptoms, Leukocytosis ED Provider Note HISTORY OF PRESENT ILLNESS: Patient is an 84-year-old female presenting with strokelike symptoms. Patient presents from home. She reports that she went to bed last night at 9:30 AM when she was last seen by family. She states that she woke up this morning and did not feel right and tried to get to her kitchen but was very dizzy and lightheaded and felt very weak. She got to her kitchen and took her blood pressure as she does every morning and states that it was very elevated. She states that she got up to try to go to the phone when she fell in the hallway secondary to right-sided weakness. She states that she was trying to call since 8 AM, but was so shaky that she was unable to dial 911. She was finally able to get in touch with her daughter at [phone]. Her daughter called 911. On EMS arrival, the patient was found to have slurred speech and right-sided deficits. Fingerstick glucose was 134 for EMS. She is not on any anticoagulation or antiplatelet therapy. She is currently complaining of feeling weak in her right upper and lower extremities. She also reports she feels numb all over. She denies hitting her head when she fell. Denies any chest pain or shortness of breath. Denies any lightheadedness or dizziness prior to her fall. She reports she stopped taking her blood pressure medication last week. ROS: as above PHYSICAL EXAM: Constitutional: Patient appears in no acute distress. HENT: Head: Normocephalic and atraumatic. Eyes: EOMI, PERRL Mouth/Throat: Mucous membranes moist. Neck: Trachea midline. Neck supple. Cardiovascular: Tachycardic with regular rhythm. No murmurs, rubs or gallops. Intact distal pulses. Pulmonary/Chest: No respiratory distress. Breath sounds clear and equal bilaterally. No wheezes or rales. Abdominal: Abdomen soft, no tenderness, rebound or guarding. Musculoskeletal: No edema, tenderness or deformity noted. Skin: Warm and dry. No rash, erythema, pallor or cyanosis Psychiatric: Appropriate mood and affect for situation. Neurological: Alert and keenly responsive. Right sided facial droop. Patient has some subtle weakness in her right upper extremity and right lower extremity as compared to her left. Sensation intact light touch about the nerve distributions of the arms and legs. Significant garbled speech. MDM: - Vitals signs showed hypertension and tachycardia. - History obtained via patient. History as above. - Chronic conditions affecting care: HTN - Differential diagnoses include, but are not limited to: Intracranial hemorrhage; CVA; ACS; pneumonia; viral syndrome; electrolyte abnormality; rhabdomyolysis - Order placed for continuous cardiac monitoring. At this time, monitor showed rate of 90 bpm with normal sinus rhythm, per my interpretation. - External medical records reviewed. Discharge summary dated 03/13/2022 was reviewed. Patient was admitted that time for incarcerated umbilical and ventral hernia. - EKG image interpreted by myself showed normal sinus rhythm. Rate tachycardic 101 bpm. QT 340. No acute ischemic changes. - Laboratory workup interpreted by myself showed leukocytosis (WBC 19.13); normal PT/INR; acute hypokalemia (K 3.3); normal troponin; normal TSH; normal AST/ALT; normal lipase - CK ordered and in process. - CXR image reviewed by myself is negative for pneumonia, per my interpretation. - CT head wo contrast for acute abnormality - CTA head negative for acute pathology - CTA neck negative for acute abnormality - Given patient's last known well was 21:30 on 10/13/2024, she is outside the window for TNK. No evidence of large vessel occlusion on imaging to suggest need for transfer for thrombectomy. - Patient's symptoms are highly concerning for a stroke that may not have manifested on her CTs at this time. MRI brain was ordered. She was given 324 mg of aspirin and 300 mg Plavix for aspirin and Plavix loading. Will admit to hospital service for further evaluation. - Discussion was had with major case detective about patient's case and need for admission - Hospitalist consulted for admission - Patient admitted to [facility] service for further evaluation and management. ASSESSMENT AND PLAN: Diagnosis: Strokelike symptoms; leukocytosis Plan: Admit Past Med/Surg History Problem List (Updated 10/14/24 @ 13:35 by Ghada Holley MD) Leukocytosis (Acute) Stroke-like symptoms (Acute) S/P cholecystectomy (Acute) Lab test negative for COVID-19 virus (Acute) Incarcerated umbilical hernia Abdominal pain (Acute) Ventral hernia (Acute) S/P laparoscopic cholecystectomy Acute cholangitis Encounter for pre-operative examination Choledocholithiasis with acute cholecystitis with obstruction Acute cholecystitis (Acute) Acute pancreatitis (Acute) Family History Other No significant family history Social History Smoking Status: Never smoker Second Hand Exposure: No; Do You Dip or Chew Tobacco: No; Hx Alcohol Use: Yes Alcohol type: hard liquor Hx Substance Use: No Preferred Language: Faroese Communication Ability: Effective Processing Technologist Required: No Beliefs That Will Affect Care: None Current Living Situation: Alone Feels Safe at Home: Yes Assistive Devices: None Allergies Allergies Allergy/AdvReac Type Severity Reaction Status Date / Time No Known Allergies Allergy Verified 03/11/22 16:42 Home Meds Home Medications Medication Instructions Recorded Confirmed lisinopril 10 1 tab PO DAILY 05/06/19 03/11/22 mg-hydrochlorothiazide 12.5 mg tablet Previous Rx's Medication Instructions Recorded oxycodone-acetaminophen 5 mg-325 1 tab PO Q6H PRN pain #20 tabs 03/12/22 mg tablet (Percocet) Results & Data (ED) Vital Signs Vital Signs - 24 hr 10/14/24 10:51 10/14/24 10:52 10/14/24 10:55 Temperature 36.6 C Temperature Source Oral Pulse Rate 102 H 102 H Pulse Rate [Apical] Pulse Rate from SpO2 Sensor Respiratory Rate 20 Respiratory Effort / Characteristics Non-Labored Spontaneous Respiratory Depth Normal Respiratory Pattern Regular Blood Pressure 163/104 H 163/104 H Blood Pressure [Left Arm] Blood Pressure Mean 133 123 Blood Pressure Mean [Left Arm] Blood Pressure Position Lying Pulse Oximetry 97 Oxygen Delivery Method Room Air Sepsis Recent Fever Within 48 Hours No Sepsis New/Unexplained Change in Mental Status No Sepsis Action Taken by Nursing No Action Required 10/14/24 11:09 10/14/24 11:12 10/14/24 11:12 Temperature Temperature Source Pulse Rate 98 H 99 H Pulse Rate [Apical] Pulse Rate from SpO2 Sensor 97 H 100 H Respiratory Rate 16 18 Respiratory Effort / Characteristics Respiratory Depth Respiratory Pattern Blood Pressure Blood Pressure [Left Arm] Blood Pressure Mean Blood Pressure Mean [Left Arm] Blood Pressure Position Pulse Oximetry 95 96 Oxygen Delivery Method Room Air Sepsis Recent Fever Within 48 Hours Sepsis New/Unexplained Change in Mental Status Sepsis Action Taken by Nursing 10/14/24 11:14 10/14/24 13:05 Temperature Temperature Source Pulse Rate Pulse Rate [Apical] 90 Pulse Rate from SpO2 Sensor Respiratory Rate 18 18 Respiratory Effort / Characteristics Respiratory Depth Respiratory Pattern Blood Pressure Blood Pressure [Left Arm] 160/88 H Blood Pressure Mean Blood Pressure Mean [Left Arm] 112 Blood Pressure Position Pulse Oximetry 95 98 Oxygen Delivery Method Room Air Sepsis Recent Fever Within 48 Hours Sepsis New/Unexplained Change in Mental Status Sepsis Action Taken by Nursing Laboratory Data 10/14/24 10:50 10/14/24 10:50 Lab Results 10/14/24 10/14/24 Range/Units 10:50 10:56 WBC 19.13 H (4.8-10.8) K/ul RBC 4.39 (4.20-5.40) M/uL Hgb 14.0 (12.0-16.0) g/dl POC Hgb 14.3 (12.0-16.0) g/dl Hct 41.2 (37.0-47.0) % POC Hct 42 (37-47) % MCV 93.8 (80.0-100.0) fL MCH 31.9 (25.0-34.0) pg MCHC 34.0 (32.0-36.0) g/dL RDW Std Deviation 43.2 (36.4-46.3) fL RDW Coeff of Francisco Javier 12.4 (11.5-14.5) % Plt Count 216 (130-400) K/uL MPV 10.6 (9.4-12.4) fL Immature Gran % (Auto) 1.0 % Neut % (Auto) 84.2 % Lymph % (Auto) 6.8 % [place] % (Auto) 7.7 % Eos % (Auto) 0.1 % Baso % (Auto) 0.2 % Neut # (Auto) 16.12 H (1.40-6.50) K/uL Lymph # (Auto) 1.30 (1.20-3.40) K/uL [place] # (Auto) 1.48 H (0.11-0.59) K/uL Eos # (Auto) 0.01 (0.00-0.50) K/uL Baso # (Auto) 0.03 (0.00-0.20) K/uL Immature Gran # (Auto) 0.19 (0.01-0.20) K/uL PT 10.2 (9.0-12.0) Seconds INR 0.9 (0.9-1.1) POC Sodium 141 (135-144) mmol/L Sodium 140 (136-145) mmol/L POC Potassium 3.3 (3.3-5.0) mmol/L Potassium 3.3 L (3.5-5.1) mmol/L POC Chloride 106 (101-112) mmol/L Chloride 107 (98-107) mmol/L Carbon Dioxide 26 (21-32) mmol/L POC Total CO2 22 L (24-31) mmol/L Anion Gap 7 (3-11) POC Anion Gap 17.0 (16-25) mmol/L POC BUN 18 (7-18) mg/dl BUN 19 (6-23) mg/dl Creatinine 0.90 (0.6-1.2) mg/dl POC Creatinine 0.9 (0.6-1.3) mg/dl Est Cr Clr Drug Dosing 48.3 ml/min eGFR 63.04 BUN/Creatinine Ratio 21.1 H (10-20) Glucose 107 H (70-99(Fasting)) mg/dl POC Glucose (other) 107 H (70-99) mg/dl Calcium 9.3 (8.6-10.3) mg/dl POC Ioniz Calcium Paulo 1.20 (1.12-1.32) mmol/l Total Bilirubin 0.6 (0.2-1.0) mg/dl AST 28 (13-39) U/L ALT 40 (7-52) U/L Alkaline Phosphatase 78 (34-104) U/L Total Creatine Kinase Cancelled Troponin I High Sens 11.7 (0-14) pg/ml Total Protein 6.7 (6.0-8.3) gm/dl Albumin 4.1 (3.4-5.0) gm/dl Globulin 2.6 (2.5-4.0) gm/dl Albumin/Globulin Ratio 1.6 (0.9-2) Lipase 7 L (11-82) U/L TSH 1.115 (0.300-4.500) uIu/ml Administered Medications Discontinued Medications Aspirin (Aspirin Chew 324 Mg) 324 mg PO NOW STA Stop: 10/14/24 12:55 Last Admin: 10/14/24 13:08 Dose: 324 mg Documented By: DEMETRIO Clopidogrel Bisulfate (Clopidogrel Bisulfate 300 Mg Tab) 300 mg PO NOW STA Stop: 10/14/24 12:55 Last Admin: 10/14/24 13:09 Dose: 300 mg Documented By: DEMETRIO Ioversol (Optiray 320 125ml) 112 ml IV ONCE ONE Stop: 10/14/24 11:28 Last Admin: 10/14/24 11:28 Dose: 112 ml Documented By: AAMIR Imaging Data Radiologist's Impression: Chest X-Ray 10/14/24 11:14 XR chest 1V portable CLINICAL HISTORY: weakness COMPARISON STUDY: No previous studies for comparison. FINDINGS: Lung volumes are mildly diminished. There is no pneumothorax or pleural effusion. There is cardiomegaly without evidence for pulmonary edema. Minimal right midlung left basilar densities favor atelectasis. IMPRESSION: 1. No acute cardiopulmonary findings. 2. Cardiomegaly. Mild bibasilar ACT 112: Negative or not required by law. Electronically signed by: Galdino Culp M.D. 10/14/2024 11:[address] 10/14/24 11:14 CT OF THE HEAD WITHOUT CONTRAST CLINICAL HISTORY: Right-sided weakness. COMPARISON STUDY: Head CT October 29, 2023. TECHNIQUE: Helical axial images of the head were obtained without IV contrast. Automated exposure control was utilized for the study. A dose lowering technique was utilized adhering to the principles of ALARA. FINDINGS: No acute intracranial hemorrhage, midline shift or mass effect is present. The ventricular system is unremarkable. The basal cisterns are patent. No extra-axial collections are present. There are no findings to suggest acute dural sinus thrombosis or acute territorial infarct. No significant calvarial abnormalities are present. Secretions within the right sphenoid sinus are present. IMPRESSION: No acute intracranial findings. ACT 112: Negative or not required by law. Electronically signed by: Galdino Culp M.D. 10/14/2024 11:47 AM Head CTA 10/14/24 11:14 CTA ANGIOGRAPHY OF THE HEAD CLINICAL HISTORY: Right-sided weakness. COMPARISON STUDY: Head CT October 29, 2023. TECHNIQUE: Helical axial images of the head were obtained following uneventful intravenous administration of 112 cc of Optiray. Sagittal and coronal reconstructions were viewed as well as maximal intensity projections on an independent 3-D workstation. Automated exposure control was utilized for the study. A dose lowering technique was utilized adhering to the principles of ALARA. FINDINGS: No acute intracranial hemorrhage, midline shift or mass effect is present. Ventricular system is normal. Basal cisterns are patent. There is no intracranial aneurysm. The bilateral M1, M2, A1 and A2 segments are patent. There is moderate plaque within the bilateral cavernous carotids without severe stenosis. Left vertebral artery is dominant. No large vessel occlusion is present. There is persistence of the left posterior cerebral artery. IMPRESSION: No large vessel occlusion. No intracranial aneurysm. ACT 112: Negative or not required by law. Electronically signed by: Galdino Culp M.D. 10/14/2024 11:51 AM Neck CTA 10/14/24 11:14 CT angio neck with con CLINICAL HISTORY: R sided weakness. COMPARISON STUDY: None TECHNIQUE: Following the IV administration of 112 cc of Optiray, CT angiogram of the neck was performed from the aortic arch to the skull base. Images are reviewed in the axial, sagittal, and coronal planes. 3-D MIPS images are created and assessed. IV contrast was administered without complication. All measurements were calculated based on NASCET criteria. A dose lowering technique was utilized adhering to the principles of ALARA. CT DOSE: 1145.07 mGy.cm FINDINGS: There is no evidence of hemodynamically significant stenosis. Calcified plaques are present at the carotid bifurcations bilaterally. There is no occlusive disease or dissection. The right vertebral artery is diminutive with a dominant left vertebral artery. IMPRESSION: No hemodynamically significant stenosis, occlusive disease, or dissection. ACT 112: Negative or not required by law. The above report was generated using voice recognition software. It may contain grammatical, syntax or spelling errors. Electronically signed by: Magy Chavez M.D. 10/14/2024 12:14 PM Discharge Plan Visit Data Chief Complaint: Stroke/CVA Symptoms Stated Complaint: STROKE SX, FALL ED Provider: Ghada Holley Discharge Problem: Stroke-like symptoms, Leukocytosis Forms Stand Alone Forms: [facility] Referrals Referrals: Sunil Champion MD [Outside Practitioners] -
[2024-10-14 11:42] LABS: INR 0.9 (0.9-1.1); Prothrombin Time 10.2 Seconds (9.0-12.0)
[2024-10-14 11:47] LABS: Albumin Globulin Ratio 1.6 (0.9-2); Albumin Level 4.1 gm/dl (3.4-5.0); BUN Creatinine Ratio 21.1 (10-20); Bilirubin,Total 0.6 mg/dl (0.2-1.0); Calcium 9.3 mg/dl (8.6-10.3); Creatinine Clr Calc Pharmacy 48.3 ml/min; Globulin 2.6 gm/dl (2.5-4.0); Potassium 3.3 mmol/L (3.5-5.1); Total Protein 6.7 gm/dl (6.0-8.3)
--- NOTE | 2024-10-14 11:50 | CT Scan Report ---
CT OF THE HEAD WITHOUT CONTRAST CLINICAL HISTORY: Right-sided weakness. COMPARISON STUDY: Head CT October 29, 2023. TECHNIQUE: Helical axial images of the head were obtained without IV contrast. Automated exposure con trol was utilized for the study. A dose lowering technique was utilized adhering to the principles o f ALARA. FINDINGS: No acute intracranial hemorrhage, midline shift or mass effect is present. The ventricular system is unremarkable. The basal cisterns are patent. No extra-axial collections are present. There are no findings to suggest acute dural sinus thrombosis or acute territorial infarct. No significant calvarial abnormalities are present. Secretions within the right sphenoid sinus are present. IMPRESSION: No acute intracranial findings. ACT 112: Negative or not required by law. Electronically signed by: Galdino Culp M.D. 10/14/2024 11:47 AM
--- NOTE | 2024-10-14 11:52 | CT Scan Report ---
CTA ANGIOGRAPHY OF THE HEAD CLINICAL HISTORY: Right-sided weakness. COMPARISON STUDY: Head CT October 29, 2023. TECHNIQUE: Helical axial images of the head were obtained following uneventful intravenous administr ation of 112 cc of Optiray. Sagittal and coronal reconstructions were viewed as well as maximal inten sity projections on an independent 3-D workstation. Automated exposure control was utilized for the study. A dose lowering technique was utilized adhering to the principles of ALARA. FINDINGS: No acute intracranial hemorrhage, midline shift or mass effect is present. Ventricular syst em is normal. Basal cisterns are patent. There is no intracranial aneurysm. The bilateral M1, M2, A1 and A2 segments are patent. There is moderate plaque within the bilateral cavernous carotids without severe stenosis. Left vertebral artery is dominant. No large vessel occlusion is present. There is fe madi persistence of the left posterior cerebral artery. IMPRESSION: No large vessel occlusion. No intracranial aneurysm. ACT 112: Negative or not required by law. Electronically signed by: Galdino Culp M.D. 10/14/2024 11:51 AM
[2024-10-14 11:53] LABS: Troponin I High Sensitivity 11.7 pg/ml (0-14)
--- NOTE | 2024-10-14 11:58 | XRay Report ---
XR chest 1V portable CLINICAL HISTORY: weakness COMPARISON STUDY: No previous studies for comparison. FINDINGS: Lung volumes are mildly diminished. There is no pneumothorax or pleural effusion. There is cardiomegaly without evidence for pulmonary edema. Minimal right midlung left basilar densities favor atelectasis. IMPRESSION: 1. No acute cardiopulmonary findings. 2. Cardiomegaly. Mild bibasilar ACT 112: Negative or not required by law. Electronically signed by: Galdino Culp M.D. 10/14/2024 11:57 AM
--- NOTE | 2024-10-14 11:59 | Electrocardiogram Report ---
Test Reason : Blood Pressure : */* mmHG Vent. Rate : 101 BPM Atrial Rate : 101 BPM P-R Int : 222 ms QRS Dur : 72 ms QT Int : 340 ms P-R-T Axes : 57 -11 52 degrees QTcB Int : 440 ms Sinus tachycardia with 1st degree A-V block Otherwise normal ECG When compared with ECG of 29-Oct-2023 21:47, No significant change was found Confirmed by Santos Woody ([id number]) on 10/14/2024 11:59:29 AM Referred By: Confirmed By: Santos Woody
[2024-10-14 12:02] LABS: Thyroid Stimulating Hormone 1.115 uIu/ml (0.300-4.500)
--- NOTE | 2024-10-14 12:15 | CT Scan Report ---
CT angio neck with con CLINICAL HISTORY: R sided weakness. COMPARISON STUDY: None TECHNIQUE: Following the IV administration of 112 cc of Optiray, CT angiogram of the neck was perform ed from the aortic arch to the skull base. Images are reviewed in the axial, sagittal, and coronal pl anes. 3-D MIPS images are created and assessed. IV contrast was administered without complication. Al l measurements were calculated based on NASCET criteria. A dose lowering technique was utilized adhe ring to the principles of ALARA. CT DOSE: 1145.07 mGy.cm FINDINGS: There is no evidence of hemodynamically significant stenosis. Calcified plaques are present at the carotid bifurcations bilaterally. There is no occlusive disease or dissection. The right vert ebral artery is diminutive with a dominant left vertebral artery. IMPRESSION: No hemodynamically significant stenosis, occlusive disease, or dissection. ACT 112: Negative or not required by law. The above report was generated using voice recognition software. It may contain grammatical, syntax o r spelling errors. Electronically signed by: Magy Chavez M.D. 10/14/2024 12:14 PM
[2024-10-14] MEDS: ASPIRIN CHEW 324 MG PO STA (13:08)
[2024-10-14] MEDS: CLOPIDOGREL BISULFATE 300 MG TAB PO STA (13:09)
--- NOTE | 2024-10-14 13:36 | History & Physical Report ---
<Statement entered by Matt Pickens, DO - 10/14/24 14:25> I have seen and examined the patient and have discussed the case with the advance practice provider. I have reviewed the advanced practitioner's documentation, and I agree with, and take responsibility for that plan of care. Patient seen and evaluated while still in the ED. Patient complaining of right- sided rib pain. This is a side she fell on. Otherwise she just states she does not feel well all over but cannot give any more specificity to her symptoms. Personally reviewed MRI images, concern for left MCA area stroke, await formal radiology interpretation, shared with patient and son at bedside Suspect ischemic stroke due to hypertension Order right-sided rib series Tylenol and tramadol x 1 dose for immediate pain control, then as needed Replace potassium orally I spent a total of 18 minutes coordinating, documenting, and providing care for this patient excluding time spent by another provider/QHP. Date of Service October 14, 2024 Assessment & Plan (1) Stroke: (2) HTN (hypertension): Plan This is an 84-year-old female who has history of allergic rhinitis, HTN & HLD who presents to ED secondary to right sided weakness and difficulty speaking x 1 day. Her last known well is 930 last evening whenever she went to bed. Pt woke up with RUE weakness and garbled speech. #Suspected Acute CVA in setting of RUE weakness, garbled speech #Hypertension admit to PCU obtain MRI brain, echo, PT/OT/ST consults a1c, lipid panel in am. pt loaded with ASA and plavix in ED will start Asa 81m daily, plavix 75mg daily x 21 days, then ASA daily Initiate atorvastatin 40mg daily monitor BP closely, allow for permissive htn for now, pt previously on lisinopril 10mg daily, recently d/c for pt preference, consider resuming in a.m. monitor on tele, will need ZIO patch as op if unrevealing Pt will be unable to drive for 6 months and until cleared from neurology #SIRS #Leukocytosis doubt true infection, suspect WBC 2/2 steroids CXR clear, obtain UA, otherwise no infectious sx, will monitor #Hypokalemia: replete, K 3.3, will give 20meq x 1 now and in evening DVT ppx: SCDS for now, initiate SQ Lovenox if to remain hospitalized > 24hrs FULL CODE PCP: Dr. Subramanian Dispo: admit to PCU, pt likely to benefit from acute rehab at [facility] to rehabilitate stroke deficits, despite age pt is highly functional as outpt and still works 2 days a week Pt seen and examined in collaboration with Dr. Pickens, please see addendum I spent a total of 60 minutes coordinating, documenting and providing care for this patient excluding time spent in the performance of separately billed services or time spent by another provider/QHP. History of Present Illness Chief Complaint: R sided weakness and difficulty speaking x 1 day. Primary Care Provider: Corine Subramanian MD This is an 84-year-old female who has history of allergic rhinitis, HTN & HLD who presents to ED secondary to right sided weakness and difficulty speaking x 1 day. Patient son is at bedside who also helps elicit history. Her last known well is 930 last evening whenever she went to bed. Son states that he stopped over after work around 330 or 4:00 and she was in her normal state of health. Patient states when she woke up this morning she did not feel quite right. She walked out to the kitchen and sat in the chair. She states her right side felt weak. She also felt very shaky. When she went to get up out of her chair she stumbled due to the weakness and fell on the ground. She reports being on the ground for approximately an hour and a half until she was able to reach a phone and call 911. She states she had difficulty calling 911 because of being so shaky. She was also noted to have significant difficulty speaking. She denies ever having similar symptoms in the past. She was most recently seen by PCP on 10/09 for routine follow-up in which her lisinopril was discontinued. Per outpatient records it appears patient was not consistent with taking her medication and her blood pressure at that appointment was 138 systolic. She was encouraged to monitor her blood pressure off of the medication. She was also started on a short prednisone taper for her neck pain. She took the prednisone taper for 3 days. She has been monitoring her blood pressure at home and states it has been around 150 systolic over 100 or greater. at baseline patient lives alone. She is independent for her ADLs. She still drives and works at [employer] 2 days a week for 4 hours at a time. Her son states she is very active. She drinks 1 Seagrams and whiskey at bedtime nightly. She denies any tobacco use. In ED patient was hypertensive. She underwent head CT and head and neck CTAs which were generally unremarkable. She did have a leukocytosis of 19,000 and hypokalemia of 3.3 but otherwise lab work generally unremarkable. Outpt records reviewed. Allergies Allergy/AdvReac Type Severity Reaction Status Date / Time No Known Allergies Allergy Verified 03/11/22 16:42 Home Medications Medication Instructions Recorded Confirmed Type fluticasone propionate 50 1 spray intranasal BID 10/14/24 10/14/24 History mcg/actuation nasal spray,suspension loratadine 10 mg tablet (Claritin) 10 mg PO DAILY 10/14/24 10/14/24 History Past Med/Surg History Problem List (Updated 10/14/24 @ 13:44 by Radha Lam PA-C) Stroke Leukocytosis (Acute) Stroke-like symptoms (Acute) S/P cholecystectomy (Acute) Lab test negative for COVID-19 virus (Acute) Incarcerated umbilical hernia Abdominal pain (Acute) Ventral hernia (Acute) Acute cholangitis Encounter for pre-operative examination Choledocholithiasis with acute cholecystitis with obstruction Acute cholecystitis (Acute) Acute pancreatitis (Acute) Medical History (Updated 10/14/24 @ 13:44 by Radha Lam PA-C) Allergic rhinitis HTN (hypertension) Surgical History (Updated 10/14/24 @ 13:41 by Radha Lam PA-C) S/P laparoscopic cholecystectomy Family History Other No significant family history Social History Smoking Status: Never smoker Second Hand Exposure: No; Do You Dip or Chew Tobacco: No; Hx Alcohol Use: Yes Alcohol type: hard liquor Hx Substance Use: No Preferred Language: Indonesian Communication Ability: Effective [employer] Required: No Beliefs That Will Affect Care: None Current Living Situation: Alone Feels Safe at Home: Yes Assistive Devices: None Review of Systems Review of Systems: All systems reviewed & are unremarkable except as noted in HPI & below Physical Exam Physical Exam: Constitutional: WD/WN, vitals as above, NAD, sitting up in bed, pleasant, conversing easily but garbled speech Head: Normocephalic, Atraumatic Eyes: PERRL, conjunctivae normal, anicteric sclerae ENMT: external ear and nose normal, oropharynx normal Neck: trachea midline, no thyromegaly normal visual inspection Respiratory: normal respiratory effort, lungs clear to auscultation, no wheeze, rales, rhonchi. Normal insp/exp effort, no accessory muscle use Cardiovascular: RRR, 1/6 HITESH noted LUSB, no edema Vessels: no JVD or carotid bruit Chest: normal inspection of chest Abdomen: normal bowel sounds, soft, nontender, no hepatosplenomegaly Musculoskeletal: no cyanosis or clubbing, RUE 3/5, all other ext 5/5 Skin: no rashes, warm and dry normal turgor Neurologic: PERRL, EOMI, accommodation nl, no face palsy, + dysarthria CN's II-XI intact bilaterally and moves all extremities Psychiatric: A+Ox3, euthymic affect Lymphatic: no cervical or axillary lymphadenopathy : deferred Results & Data Results & Data Vital Signs (Past 12 Hours) Vital Signs Temp Pulse Pulse Resp BP BP Pulse Ox 10/14/24 13:05 90 18 160/88 H 98 10/14/24 11:14 18 95 10/14/24 11:12 99 H 18 96 10/14/24 11:12 10/14/24 11:09 98 H 16 95 10/14/24 10:55 36.6 C 102 H 20 163/104 H 97 10/14/24 10:52 163/104 H 10/14/24 10:51 102 H O2 Del Method 10/14/24 13:05 Room Air 10/14/24 11:14 10/14/24 11:12 10/14/24 11:12 Room Air 10/14/24 11:09 10/14/24 10:55 Room Air 10/14/24 10:52 10/14/24 10:51 Laboratory Results I have independently reviewed and interpreted patient's admitting labs including CBC, CMP, , PT/INR, mag, lipase, tsh, phos and troponin. Diagnostic Findings Chest X-Ray 10/14/24 11:14 XR chest 1V portable CLINICAL HISTORY: weakness COMPARISON STUDY: No previous studies for comparison. FINDINGS: Lung volumes are mildly diminished. There is no pneumothorax or pleural effusion. There is cardiomegaly without evidence for pulmonary edema. Minimal right midlung left basilar densities favor atelectasis. IMPRESSION: 1. No acute cardiopulmonary findings. 2. Cardiomegaly. Mild bibasilar ACT 112: Negative or not required by law. Electronically signed by: Galdino Culp M.D. 10/14/2024 11:[address] 10/14/24 11:14 CT OF THE HEAD WITHOUT CONTRAST CLINICAL HISTORY: Right-sided weakness. COMPARISON STUDY: Head CT October 29, 2023. TECHNIQUE: Helical axial images of the head were obtained without IV contrast. Automated exposure control was utilized for the study. A dose lowering technique was utilized adhering to the principles of ALARA. FINDINGS: No acute intracranial hemorrhage, midline shift or mass effect is present. The ventricular system is unremarkable. The basal cisterns are patent. No extra-axial collections are present. There are no findings to suggest acute dural sinus thrombosis or acute territorial infarct. No significant calvarial abnormalities are present. Secretions within the right sphenoid sinus are present. IMPRESSION: No acute intracranial findings. ACT 112: Negative or not required by law. Electronically signed by: Galdino Culp M.D. 10/14/2024 11:47 AM Head CTA 10/14/24 11:14 CTA ANGIOGRAPHY OF THE HEAD CLINICAL HISTORY: Right-sided weakness. COMPARISON STUDY: Head CT October 29, 2023. TECHNIQUE: Helical axial images of the head were obtained following uneventful intravenous administration of 112 cc of Optiray. Sagittal and coronal reconstructions were viewed as well as maximal intensity projections on an independent 3-D workstation. Automated exposure control was utilized for the study. A dose lowering technique was utilized adhering to the principles of ALARA. FINDINGS: No acute intracranial hemorrhage, midline shift or mass effect is present. Ventricular system is normal. Basal cisterns are patent. There is no intracranial aneurysm. The bilateral M1, M2, A1 and A2 segments are patent. There is moderate plaque within the bilateral cavernous carotids without severe stenosis. Left vertebral artery is dominant. No large vessel occlusion is present. There is persistence of the left posterior cerebral artery. IMPRESSION: No large vessel occlusion. No intracranial aneurysm. ACT 112: Negative or not required by law. Electronically signed by: Galdino Culp M.D. 10/14/2024 11:51 AM Neck CTA 10/14/24 11:14 CT angio neck with con CLINICAL HISTORY: R sided weakness. COMPARISON STUDY: None TECHNIQUE: Following the IV administration of 112 cc of Optiray, CT angiogram of the neck was performed from the aortic arch to the skull base. Images are reviewed in the axial, sagittal, and coronal planes. 3-D MIPS images are created and assessed. IV contrast was administered without complication. All measurements were calculated based on NASCET criteria. A dose lowering technique was utilized adhering to the principles of ALARA. CT DOSE: 1145.07 mGy.cm FINDINGS: There is no evidence of hemodynamically significant stenosis. Calcified plaques are present at the carotid bifurcations bilaterally. There is no occlusive disease or dissection. The right vertebral artery is diminutive with a dominant left vertebral artery. IMPRESSION: No hemodynamically significant stenosis, occlusive disease, or dissection. ACT 112: Negative or not required by law. The above report was generated using voice recognition software. It may contain grammatical, syntax or spelling errors. Electronically signed by: Magy Chavez M.D. 10/14/2024 12:14 PM Medications Administered Medication List Discontinued Medications Aspirin (Aspirin Chew 324 Mg) 324 mg PO NOW STA Stop: 10/14/24 12:55 Last Admin: 10/14/24 13:08 Dose: 324 mg Documented By: DEMETRIO Clopidogrel Bisulfate (Clopidogrel Bisulfate 300 Mg Tab) 300 mg PO NOW STA Stop: 10/14/24 12:55 Last Admin: 10/14/24 13:09 Dose: 300 mg Documented By: DEMETRIO Ioversol (Optiray 320 125ml) 112 ml IV ONCE ONE Stop: 10/14/24 11:28 Last Admin: 10/14/24 11:28 Dose: 112 ml Documented By: AAMIR ECG Additional Comments: I have independently reviewed and interpreted patient's admitting EKG which revealed: 101 ST 1st degree AVB qtc 440ms COVID- Results Results COVID- Adm Lab Results: RBC 4.39 M/uL (4.20-5.40) 10/14/24 WBC 19.13 K/ul (4.8-10.8) H 10/14/24 Hgb 14.0 g/dl (12.0-16.0) 10/14/24 Hct 41.2 % (37.0-47.0) 10/14/24 Plt Count 216 K/uL (130-400) 10/14/24 Neutrophils (%) (Auto) 84.2 % 10/14/24 Lymphocytes (%) (Auto) 6.8 % 10/14/24 Monocytes # (Auto) 1.48 K/uL (0.11-0.59) H 10/14/24 Eosinophils # (Auto) 0.01 K/uL (0.00-0.50) 10/14/24 Immature Granulocyte % (Auto) 1.0 % 10/14/24 Neutrophils # (Auto) 16.12 K/uL (1.40-6.50) H 10/14/24 Lymphocytes # (Auto) 1.30 K/uL (1.20-3.40) 10/14/24 Monocytes # (Auto) 1.48 K/uL (0.11-0.59) H 10/14/24 Eosinophils # (Auto) 0.01 K/uL (0.00-0.50) 10/14/24 Basophils # (Auto) 0.03 K/uL (0.00-0.20) 10/14/24 Immature Granulocyte # (Auto) 0.19 K/uL (0.01-0.20) 5 Na 140 mmol/L (136-145) 10/14/24 K 3.3 mmol/L (3.5-5.1) L 10/14/24 Cl 107 mmol/L (98-107) 10/14/24 CO2 26 mmol/L (21-32) 10/14/24 Anion Gap 7 (3-11) 10/14/24 BUN 19 mg/dl (6-23) 10/14/24 Creatinine 0.90 mg/dl (0.6-1.2) 10/14/24 BUN/Creatinine Ratio 21.1 (10-20) H 10/14/24 Glucose Level 107 mg/dl (70-99(Fasting)) H 10/14/24 Ca 9.3 mg/dl (8.6-10.3) 10/14/24 Total Bilirubin 0.6 mg/dl (0.2-1.0) 10/14/24 AST/SGOT 28 U/L (13-39) 10/14/24 ALT/SGPT 40 U/L (7-52) 10/14/24 Alkaline Phosphatase 78 U/L (34-104) 10/14/24 Total Protein 6.7 gm/dl (6.0-8.3) 10/14/24 Albumin 4.1 gm/dl (3.4-5.0) 10/14/24 Globulin 2.6 gm/dl (2.5-4.0) 10/14/24 Albumin/Globulin Ratio 1.6 (0.9-2) 10/14/24 Total CK Pending 10/14/24 INR 0.9 (0.9-1.1) 10/14/24 Chest X-Ray 10/14/24 Code Status & VTE Plan Code Status FULL CODE VTE Prophylaxis Plan VTE Prophylaxis will be ordered: Yes
--- NOTE | 2024-10-14 14:14 | Magnetic Resonance Report ---
MR brain wo con CLINICAL HISTORY: stroke like symptoms slurred speech COMPARISON STUDY: None TECHNIQUE: Multiplanar MRI of the brain was performed using various pulse sequences without gadoliniu m enhancement. FINDINGS: There is an area of very strict diffusion in the left periventricular white matter consiste nt with an acute stroke. The lesion measures approximately 12 mm in size. It is not associated with h emorrhage or mass effect. No additional acute findings are noted. There is no intra-axial or extra-ax ial fluid collection, hemorrhage, or mass. The ventricles and sulci demonstrate this senescent atroph y. There are multiple T2 and FLAIR hyperintense white matter lesions most commonly associated with sm all vessel insufficiency. There are normal flow voids at the skull base. There is no fluid in the mas toid air cells. IMPRESSION: Small acute left periventricular white matter stroke. No evidence of mass effect or hemo rrhage. ACT 112: Negative or not required by law. Electronically signed by: Magy Chavez M.D. 10/14/2024 2:12 PM
[2024-10-14] MEDS: ACETAMINOPHEN 500 MG TAB PO STA (14:28)
[2024-10-14] MEDS: traMADol HCL 50 MG TABLET PO STA (14:29)
[2024-10-14] MEDS: POTASSIUM CHLORIDE CRTAB 20 MEQ TABCR PO STA ×2 (14:29→14:30)
[2024-10-14] MEDS ORDERED: PHARMACIST DISCHARGE MED REC CONSULT PRN (15:03)
[2024-10-14] MEDS ORDERED: ONDANSETRON INJ 2 MG/ML 2 ML VIAL IV PRN (15:03)
--- OUTSIDE RECORDS SUMMARY | 2024-10-14 15:10 | External Medical Summary ---
Author Name Unknown Address Unknown Organization K01:[facility] [place] [address] [place] [id number] Laboratory Report Ordering Provider Test Date Status ERICKSON CHACKOROBBY 08/05/2024 11:04:39 Marya l Observation Date Value Abnormality Reference (Units ) Status TSH 08/05/2024 11:04:39 1.34 0.27-4.20 (uIU/mL) Final Performing Location [facility] [place] [address] [place] [address]
--- OUTSIDE RECORDS SUMMARY | 2024-10-14 15:10 | External Medical Summary | Summary of Care ---
Author Name Unknown Organization [facility] Address [address] [place] [address] Phone [phone] Care Team Providers Care Vamp Maker Name Role Phone Corine Subramanian MD Primary Care Provide r Reason for Visit * Reason Comments eRx-Medication Refill Encounter Details Date Type Department Care Team (Late st Contact Info) Description 08/03/2024 Refill Family Medicine [address] [place] [address] Corine Subramanian MD [address] [place] [address] [place] [id number] HTN, goal below 150/90 Allergies No known active allergiesdocumented as of this encounter (statuses as of 08/06/2024) Medications Triamcinolone Acetonide 0.1 % External Cream (Aristocort)In dications:Irri tant contact dermatitis due to plants, except food Apply topically to affected area 2 times a day. To affected area. 60 g 5 07/24/20 23 Active Loratadine 10 MG Oral Tablet (Claritin) Take 1 Tablet by mouth in the morning. 02/18/20 24 Active Fluticasone Propionate 50 MCG/ACT Nasal Suspension (Flonase) Administer 2 Sprays into each nostril in the morning. 02/18/20 24 Active Lisinopril 10 MG Oral Tablet (Prinivil)Amanda cations:HTN, goal below 150/90 Take 1 Tablet by mouth in the morning. 90 Tablet 1 08/06/20 24 Active Lisinopril 10 MG Oral Tablet (Prinivil)Amanda cations:HTN, goal below 150/90 Take 1 Tablet by mouth in the morning. 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 Dyslipidemia, goal LDL below 100 02/18/2008 Overview (02/19/2012): CHOL 229, HDL 57, LDL 150, TRIG 67 Seasonal allergic rhinitis documented as of this encounter (statuses as of 08/06/2024) Resolved Problems Problem Noted Date Diagnosed Date Resolved Date Chronic kidney disease, stage 3a 02/07/2021 02/04/2024 Overview: Per CKD protocol Benign hypertension with sta ge 3a chronic kidney disease 01/03/2021 02/04/2024 Overview: Per CKD protocol CKD (chronic kidney disease), stage III 09/07/2016 06/09/2018 Overview (09/10/2016): GFR 58.9 Endometrial cancer 12/03/2014 8 Postmenopausal bleeding 10/16/201411/24 Obesity, Class II, BMI 35-39 .9, isolated (see actual BMI) 11/21/2009 02/19/2012 Overview (11/21/2009): Per Obesity Taxonomy Dyslipidemia, goal to be determined 08/02/2009 02/19/2012 Overview (08/02/2009): Per Lipid Taxonomy. ADVANCE DIRECTIVE INFORMATION 11/05/2006 06/29/2024 Overview (11/05/2006): No, Advance Directive brochure offered , patient declined. History of nonadherence to medical treatment 02/19/2012 Varicella without complication 02/19/2012 Mixed dyslipidemia 9 Overview (08/02/2009): Per Lipid Taxonomy. Other specified acquired hypothyroidism 02/19/2012 Obesity, BMI not known 11/21 Overview (11/21/2009): Per Obesity Taxonomy BMI 35.0-35.9,adult 04/25/20 18 Benign hypertension with CKD (chronic kidney disease) stage III 01/05/2021 Overview: Per CKD protocol documented as of this encounter (statuses as of 08/06/2024) Immunizations Name Administration Dates Next Due COVID-19 mRNA, LNP-s, No Pre serve, 2-Dose Series (Moderna) 06/21/2021,10/04/2020,09/13/2020 Pneumococcal Polysaccharide PPV23 (Pneumovax) 02/17/2008 Seasonal Influenza Vac., MDV , IM, 0.5 mL (Fluzone) 04/26/2015,06/10/2014,05/22/2013,06/09,05/26/2011,05/26/2009,05/26/2008 Seasonal Influenza, Quadriva lent Hd (Fluzone Hd) 06/26/2023,06/28/2021 Seasonal Influenza, Quadriva lent, No Preserve, IM 05/26/2018,05/25/2017,05/26/2016 Seasonal Influenza, Trivalen t, Adjuvanted, 65+ YRS, PF, (Fluad) 05/12/2019 documented as of this encounter Social History Tobacco Use Types Packs/Day Years Used Date Smoking Tobacco: Never Smokeless Tobacco: Never Alcohol Use Standard Drinks/Week Comments Yes 0 (1 standard drink = 0.6 oz pur e alcohol) 1 shot wiskey at bedtime PHQ-2 Answer Date Recorded PHQ-2 Score -1 05/15/2020 Hunger Vital Sign Answer Date Recorded Worried About Running Out of Food in the Last Ye ar Never true 05/12/2019 Ran Out of Food in the Last Year Never true 05/12/2019 Comments No Sex and Gender Information Value Date Recorded Sex Assigned at Not on file Legal Sex Female 5:28 AM EST Gender Identity Not on file Sexual Orientation Not on file documented as of this encounter Functional Status * Are you deaf or do you have serious difficulty hearing? Answer Date of Assessment Author No 12/03/2014 5:13 PM EDT Tammi Romero RN * Are you blind or do you have serious difficulty seeing, even when wearing glasses? Answer Date of Assessment Author No 12/03/2014 5:13 PM EDT Tammi Romero RN * Do you have serious difficulty walking or climbing stairs? (5 years old or older) Answer Date of Assessment Author No 12/03/2014 5:13 PM EDT Tammi Romero RN * Do you have difficulty dressing or bathing? (5 years old or older) Answer Date of Assessment Author No 12/03/2014 5:13 PM EDT Tammi Romero RN * Because of a physical, mental, or emotional condition, do you have difficulty doing errands alone such as visiting a doctors office or shopping? (15 years old or older) Answer Date of Assessment Author No 12/03/2014 5:13 PM EDT Tammi Romero RN documented as of this encounter Mental Status * Because of a physical, mental, or emotional condition, do you have serious difficulty concentrating, remembering, or making decisions? (5 years old or older) Answer Entry Date Author No 12/03/2014 5:13 PM FAWNT Tammi Romero RN documented in this encounter Miscellaneous Notes * Telephone Encounter - Corine Subramanian MD - 08/06/2024 1:05 PM EST Signed Prescriptions: Disp Refills Lisinopril 10 MG Oral Tablet (Prinivil) 90 Tab*1 Sig: Take 1 Tablet by mouth in the morning. Authorizing Provider: CORINE SUBRAMANIAN * Telephone Encounter - Silvia Vo [facility] - 08/06/2024 4:07 AM ESTPending Prescriptions: Disp Refills Lisinopril 10 MG Oral Tablet [Pharmacy Med*90 Tab*1 Sig: Take 1Tablet by mouth in the morning. documented in this encounter Plan of Treatment Upcoming Encounters Date Type Department Care Team (Late st Contact Info) Description 10/21/2024 2:40 PM EST Office Visit Family Medicine [address] [place] [address] Corine Subramanian MD [address] [place] [address] [place] [id number] Health Maintenance Due Date Last Done Comments DXA Scan 1940 Zoster Vaccines (1 of 2) 02/02/1990 DTap/Tdap Vaccines (1 - Tdap) 11/06/2001 11/05/2001 Adult Wellness Visit 02/02/2006 Pneumococcal Vaccine: 65+ Years (2 of 2 - PCV) 02/16/2009 02/17/2008 Colonoscopy 11/11/2019 11/10/2014, 11/10/2014 Depression Screening 03/29/2021 03/29/2020 COVID-19 Vaccine ( season) 2024 06/21/2021, 10/04/2020, 09/13/2020 Influenza Vaccine (FLU shot) (#1) 2024 06/26/2023, 06/28/2021, 05/12/2019, Additional history exists GFR 08/05/2025 08/05/2024, 01/24, 01/16/2023, Additional history exists Albumin/Creatinine Ratio 02/03/20272 024, 01/16/2023, 06/21/2021, Additional history exists RETIRED - COLONOSCOPY-EVERY 5 YRS AGES 18-100 Discontinued 11/10/2014, 11/10/2014 HPV (Gardasil) Vaccine Aged Out No lo nger eligible based on patient's age to complete this topic Hepatitis B Vaccine Aged Out No longe r eligible based on patient's age to complete this topic MENINGOCOCCAL (MENACTRA/MENVEO) Aged Out No longer eligible based on patient's age to complete this topic documented as of this encounter Medical Devices Not on filedocumented as of this encounter Visit Diagnoses Diagnosis HTN, goal below 150/90 documented in this encounter Advance Directives * Full Code (Latest Code Status on File) Date Activated Date Inactivated Comments 12/03/2014 1:21 PM 12/10/2014 6:11 PM This order r eflects the patients wishes and were consensually agreed upon. Care Teams Vamp Maker Relationship Specialty Start Date End Date Corine Subramanian MD [address] [place] [address] [place] [id number] PCP - General Family Medicine 02/18/24 documented as of this encounter
--- OUTSIDE RECORDS SUMMARY | 2024-10-14 15:10 | External Medical Summary | Summary of Care ---
Author Name Unknown Organization [facility] Address [address] [place] [address] Phone [phone] Care Team Providers Care Seamless Tube Roller Name Role Phone Corine Subramanian MD Primary Care Provide r Reason for Visit * Reason Comments Re-Check 6 mo Encounter Details Date Type Department Care Team (Late st Contact Info) Description 08/05/2024 10:20 AM EST Office Visit Family Medicine [address] [place] [address] Corine Subramanian MD [address] [place] [address] [place] [phone] HTN, goal below 140/90*; Fatigue, unspecified type Allergies No known active allergiesdocumented as of this encounter (statuses as of 08/05/2024) Medications Triamcinolone Acetonide 0.1 % External Cream (Aristocort)Ind ications:Irrita nt contact dermatitis due to plants, except food Apply topically to affected area 2 times a day. To affected area. 60 g 5 3 Active Lisinopril 10 MG Oral Tablet (Prinivil)Indic ations:HTN, goal below 150/90 Take 1 Tablet by mouth in the morning. 90 Tablet 1 4 Active Loratadine 10 MG Oral Tablet (Claritin) Take 1 Tablet by mouth in the morning. 4 Active Fluticasone Propionate 50 MCG/ACT Nasal Suspension (Flonase) Administer 2 Sprays into each nostril in the morning. 4 Active documented as of this encounter (statuses as of 08/05/2024) Active Problems Problem Noted Date Diagnosed Date Ventral hernia without obstruction or gangrene 0 12/27/2021 BMI 33.0-33.9,adult 04/25/2018 Primary hypertension 07/27/2016 Oral lichen planus 02/19/2015 Dyslipidemia, goal LDL below 100 02/18/2008 Overview (02/19/2012): CHOL 229, HDL 57, LDL 150, TRIG 67 Seasonal allergic rhinitis documented as of this encounter (statuses as of 08/05/2024) Resolved Problems Problem Noted Date Diagnosed Date [...] as of this encounter (statuses as of 08/05/2024) Immunizations Name Administration Dates Next Due COVID-19 [...] on file documented as of this encounter Last Filed Vital Signs Vital Sign Reading Time Taken Comments Blood Pressure 132/84 08/05/2024 10:34 AM EST Pulse 79 08/05/2024 10:34 AM EST Temperature 36.2 C (97.1 F) 08/05/2024 1 0:34 AM EST Respiratory Rate - - Oxygen Saturation 98% 08/05/2024 10: 34 AM EST Inhaled Oxygen Concentration - - Weight 84.7 kg (186 lb 12.8 oz) 024 10:34 AM EST Height - - Body Mass Index 34.17 07/24/2023 1:58 PM EST documented in this encounter Functional Status * Are you [...] of Assessment Author No 12/03/2014 5:13 PM FAWNT Tammi Romero RN documented as of this encounter Mental Status * Because of a physical, mental, or emotional condition, do you have serious difficulty concentrating, remembering, or making decisions? (5 years old or older) Answer Entry Date Author No 12/03/2014 5:13 PM EDT Tammi Romero RN documented in this encounter Progress Notes * Corine Subramanian MD - 08/05/2024 10:44 AM EST Subjective: HPI: Lauren Guillen is a 84 year old female with hx of HLD, Seasonal allergy, HTN, CKD II-III seen for HTN with CKD II-III - pt's HTN med was changed to Lisinopril 10mg daily from lisinopril-hctz Pt is having intermittent fatigue, dizziness, muscle pain - denied any fever, N/V - per pt eating well --- pt is still working at [employer] Patient Active Problem List Diagnosis Seasonal allergic rhinitis Dyslipidemia, goal LDL below 100 Oral lichen planus Primary hypertension BMI 33.0-33.9,adult Ventral hernia without obstruction or gangrene Current Outpatient Medications Medication Sig Dispense Refill Triamcinolone Acetonide 0.1 % External Cream (Aristocort) Apply topically to affected area 2 times a day. To affected area. 60 g 5 Lisinopril 10 MG Oral Tablet (Prinivil) Take 1 Tablet by mouth in the morning. 90 Tablet 1 Loratadine 10 MG Oral Tablet (Claritin) Take 1 Tablet by mouth in the morning. Fluticasone Propionate 50 MCG/ACT Nasal Suspension (Flonase) Administer 2 Sprays into each nostril in the morning. No current facility-administered medications for this visit. Past Medical History: Diagnosis Date Acute cystitis 07/30/2011 E coli Allergic rhinitis due to other allergen Benign hypertension with CKD (chronic kidney disease) stage III (HCC) Benign neoplasm of colon 11/10/2014 4 mm cecal polyp. 5 mm polyp at 25 cm BMI 35.0-35.9,adult CKD (chronic kidney disease), stage III (HCC) 09/07/2016 GFR 58.9 Full dentures History of nonadherence to medical treatment Malignant neoplasm of endometrium (HCC) 12/03/2014 Mixed dyslipidemia 02/18/2008 CHOL 229, HDL 57, LDL 150, TRIG 67 Oral lichen planus 02/19/2015 Other specified acquired hypothyroidism Postmenopausal bleeding 10/16/2014 Varicella without complication Ventral hernia without obstruction or gangrene 05/17/2016 supra umbilical hernia with a loop of transverse colon Ventral hernia without obstruction or gangrene 12/27/2021 Past Surgical History: Procedure Laterality Date COLONOSCOPY, DIAGNOSTIC (RECTUM) 11/10/2014 adenomatous polyps, repeat 5 yrs/COLONOSCOPY FLEXIBLE PROXIMAL DIAGNOSTIC performed by Brian Rios MD at ENDOSCOPY [facility] CT ABD/PELVIS W IV AND W ORAL CONTRAST 05/17/2016 midline supra umbilical hernia with a loop of transverse colon in it. CYSTOSCOPY 01/25/2014 normal ERCP 05/06/2019 choledocholithiasis, acute cholangitis, stent placed, repeat 4-6 wks/[facility] ERCP, DIAGNOSTIC, SPECIMEN COLLECTION 06/17/2019 biliary sludge, stent removed/ENDOSCOPIC RETROGRADE CHOLANGIOPANCREATOGRAPHY (ERCP) DIAGNOSTIC performed by Eric Angel MD at ENDOSCOPY [facility] LAPAROSCOPY; CHOLECYSTECTOMY 05/06/2019 Cholecystitis and ascending cholangitis MRI ABDOMEN WO CONTRAST 05/06/2019 gallstones in GB. mild GB wall thickening with trace edema, several filling defects in distal common duct, distended pancreatic duct RADICAL HYSTERECTOMY 12/03/2014 RADICAL ABDOMINAL HYSTERECTOMY performed by Iram Courtney DO at [place] [facility] REPAIR INITIAL INCISIONAL OR VENTRAL HERNIA; REDUCIBLE N/A 07/03/2016 Dr Frye UMBIL HERNIA REPAIR (INCARCERATED) AGE 5+YR 03/11/2022 done at [facility] through ED by Dr Valencia Review of patient's allergies indicates: No Known Allergies Family History Problem Relation Name Age of Onset Heart Disorder Mother Heart Disorder Father Heart Disorder Brother Cancer None Social History Tobacco Use Smoking status: Never Smokeless tobacco: Never Substance Use Topics Alcohol use: Yes Comment: 1 shot wiskey at bedtime Vaping/E-Cigarette Use Vaping/E-Cigarette Substances Vaping/E-Cigarette Devices ROS: -Per HPI OBJECTIVE: BP 132/84 | Pulse 79 | Temp 97.1 F (36.2 C) | Wt 186 lb 12.8 oz (84.7 kg) | SpO2 98% | BMI 34.17 kg/m | BSA 1.93 m PHYSICAL EXAM: Vitals are reviewed General:. NAD, well developed HEENT:. Normal Conjunctiva, EOMI Cardiac:. Normal S1, S2, no murmur Lungs:. CTA, no wheezing or crackles MSK:. Normal gait Psych:. AAOx3, normal affect ASSESSMENT/PLAN: BP is better with stopping the hCTZ - I suspect pt;s symptoms are likely due to lack of food intake, and water intake - will do labs - recommended to increase protein intake and water intake - if symptoms worsend then RTC HTN, goal below 140/90 (Primary) Fatigue, unspecified type - CBC WITH WBC DIFFERENTIAL - TSH WITH FREE T4 IF INDICATED Follow Up: Return if symptoms worsen or fail to improve. I spent a total of 30-39 minutes (exact time 34 mins) on the date of service in preparation, delivery, and documentation of the care provided to Lauren Guillen excluding any time spent in the performance of separately billed services or time spent by another provider/QHP. Corine Subramanian MD Family medicine[address] [phone] documented in this encounter Nursing Notes * Maranda Carlson CMA - 08/05/2024 10:32 AM EST She is here today because she has been dizzy and is concerned it may be related to her blood pressure or the BP meds. Before refilling them she wanted seen. documented in this encounter Plan of Treatment Upcoming Encounters Date Type Department Care Team (Late st Contact Info) Description 10/21/2024 2:40 PM EST Office Visit [address] [phone] Corine Subramanian MD [address] [place] [address] [place] [phone] Pending Results Name Type Priority Associated Diagnoses Date /Time CBC WITH WBC DIFFERENTIAL Lab Routine Fatigue, unspecified type 08/05/2024 11:04 AM EST TSH WITH FREE T4 IF INDICATED Lab Routine Fatigue, unspecified type 08/05/2024 11:04 AM EST CBC Lab Routine Fatigue, unspecified type 08/05/2024 11:04 AM EST DIFFERENTIAL, AUTOMATED Lab Routine Fatigue, unspecified type 08/05/2024 11:04 AM EST Health Maintenance Due Date Last Done Comments [...] 06/26/2023, 06/28/2021, 05/12/2019, Additional history exists GFR 2025 02/04/2024, 12/25, 12/27/2021, Additional history exists Albumin/Creatinine Ratio 2027 024, 01/16/2023, 06/21/2021, Additional history exists RETIRED [...] encounter Visit Diagnoses Diagnosis HTN, goal below 140/90- Primary Unspecified essential hypertension Fatigue, unspecified type documented in this encounter Advance Directives * Full Code (Latest Code Status on File) Date Activated Date Inactivated Comments 12/03/2014 1:21 PM 12/10/2014 6:11 PM This order r eflects the patients wishes and were consensually agreed upon. Care Teams Seamless Tube Roller Relationship Specialty Start Date End Date Corine Subramanian MD [address] [place] [address] [place] [phone] PCP - General Family Medicine 02/18/24 documented as of this encounter"
--- OUTSIDE RECORDS SUMMARY | 2024-10-14 15:10 | External Medical Summary | Summary of Care ---
Author Name Unknown Organization [facility] Address [address] [place] [address] Phone [phone] Care Team Providers Care Orchid Superintendent Name Role Phone Corine Subramanian MD Primary Care Provide r Reason for Visit * Reason Comments Outpatient Testing Encounter Details Date Type Department Care Team (Late st Contact Info) Description 08/05/2024 11:10 AM EST Laboratory Laboratory [address] [place] [phone] [place] [phone] Serum potassium elevated Allergies No known active allergiesdocumented as of [...] Author No 12/03/2014 5:13 PM FAWNT Tammi Romero, TANISHA * Are you blind or do you [...] Tammi Romero RN documented in this encounter Plan of Treatment Upcoming Encounters Date Type Department Care Team (Late st Contact Info) Description 10/21/2024 2:40 PM EST Office Visit Family Medicine [address] [phone] Corine Subramanian MD [address] [place] [address] [place] [phone] Pending Results Name Type Priority Associated Diagnoses Date /Time BASIC METABOLIC PANEL Lab Routine Serum potassium elevated 08/05/2024 11:04 AM EST Health Maintenance Due [...] as of this encounter Visit Diagnoses Diagnosis Serum potassium elevated Hyperpotassemia documented in this encounter Advance Directives * Full Code (Latest Code Status on File) Date Activated Date Inactivated Comments 12/03/2014 1:21 PM 12/10/2014 6:11 PM This order r eflects the patients wishes and were consensually agreed upon. Care Teams Orchid Superintendent Relationship Specialty Start Date End Date Corine Subraamnian MD [address] [place] [address] [place] [phone] PCP - General Family Medicine 02/18/24 documented as of this encounter
--- OUTSIDE RECORDS SUMMARY | 2024-10-14 15:10 | External Medical Summary | Summary of Care ---
Author Name Unknown Organization [facility] Address [address] [place] [address] Phone [phone] Care Team Providers Care Cloth Examiner Hand Name Role Phone Corine Subramanian MD Primary Care Provide r Reason for Visit * Reason Onset Date Comments Health Maintenance 04/21/2024 Encounter Details Date Type Department Care Team (Late st Contact Info) Description 04/21/2024 Telephone Family Medicine [address] [place] [phone] Corine Subramanian MD [address] [place] [address] [place] [phone] Health Maintenance Allergies No known active allergiesdocumented as of this encounter (statuses as of 04/21/2024) Medications Medication Sig Dispensed Refills Start Date End Date Status Triamcinolone Acetonide 0.1 % External Cream (Aristocort)Indicat ions:Irritant contact dermatitis due to plants, except food Apply topically to affected area 2 times a day. To affected area. 60 g 5 07/24/2023 Active Lisinopril 10 MG Oral Tablet (Prinivil)Indicatio ns:HTN, goal below 150/90 Take 1 Tablet by mouth in the morning. 90 Tablet 1 02/04/2024 Active Loratadine 10 MG Oral Tablet (Claritin) Take 1 Tablet by mouth in the morning. 02/18/2024 Active Fluticasone Propionate 50 MCG/ACT Nasal Suspension (Flonase) Administer 2 Sprays into each nostril in the morning. 02/18/2024 Active documented as of this encounter (statuses as of 04/21/2024) Active Problems Problem Noted Date Diagnosed Date Ventral hernia without obstruction or gangrene 0 12/27/2021 BMI 33.0-33.9,adult 04/25/2018 Primary hypertension 07/27/2016 Oral lichen planus 02/19/2015 Dyslipidemia, goal LDL below 100 02/18/2008 Overview: CHOL 229, HDL 57, LDL 150, TRIG 67 ADVANCE DIRECTIVE INFORMATION 11/05/2006 Overview: No, Advance Directive brochure offered , patient declined. Seasonal allergic rhinitis documented as of this encounter (statuses as of 04/21/2024) Resolved Problems Problem Noted Date Diagnosed Date Resolved Date Chronic kidney disease, stage 3a 02/07/2021 02/04/2024 Overview: Per CKD protocol Benign hypertension with sta ge 3a chronic kidney disease 01/03/2021 02/04/2024 Overview: Per CKD protocol CKD (chronic kidney disease), stage III 09/07/2016 06/09/2018 Overview: GFR 58.9 Endometrial cancer 12/03/2014 8 Postmenopausal bleeding 10/16/201411/24 Obesity, Class II, BMI 35-39 .9, isolated (see actual BMI) 11/21/2009 02/19/2012 Overview: Per Obesity Taxonomy Dyslipidemia, goal to be determined 08/02/2009 02/19/2012 Overview: Per Lipid Taxonomy. History of nonadherence to medical treatment 02/19/2012 Varicella without complication 02/19/2012 Mixed dyslipidemia 9 Overview: Per Lipid Taxonomy. Other specified acquired hypothyroidism 02/19/2012 Obesity, BMI not known 11/21 Overview: Per Obesity Taxonomy BMI 35.0-35.9,adult 04/25/20 18 Benign hypertension with CKD (chronic kidney disease) stage III 01/05/2021 Overview: Per CKD protocol documented as of this encounter (statuses as of 04/21/2024) Immunizations Name Administration Dates Next Due COVID-19 mRNA, LNP-s, No Pre serve, 2-Dose Series (Moderna) 06/21/2021,10/04/2020,09/13/2020 Pneumococcal Polysaccharide PPV23 (Pneumovax) 02/17/2008 Seasonal Influenza, Quadriva lent Hd (Fluzone Hd) 06/26/2023,06/28/2021 Seasonal Influenza, Quadriva lent, No Preserve, IM 05/26/2018,05/25/2017,05/26/2016 Seasonal Influenza, Split, I IV3, With Preserve, Inj 04/26/2015,06/10/2014,05/22/2013,06/09,05/26/2011,05/26/2009,05/26/2008 Seasonal Influenza, Trivalen t, Adjuvanted, 65+ yrs 05/12/2019 documented as of this encounter Social [...] in the Last Year Never true 05/12/2019 Utilities Answer Date Recorded Do you have trouble paying y our heating, water, or electric bill? (Adult - for ages 18 years and over) Not on file 02/11/2024 Is your family able to pay t he heat, water, or electric bill? (Household - for ages 0-17 years) Not on file 02/11/2024 Does your family have access to good internet? (Household - for ages 0-17 years) Not on file 02/11/2024 Social Connections Answer Date Recorded How often do you feel lonely or isolated from those around you? (Adult - for ages 18 years and over) Not on file 02/11/2024 Sex and Gender Information Value Date Recorded Sex Assigned at Not on file Gender Identity Not on file Sexual Orientation Not on file Job Start Date Occupation Industry Not on file Not on file Not on file documented as of this encounter Functional Status Functional Status Response Date of Assess ment Are you deaf or do you have serious difficulty h earing? No 12/03/2014 Are you blind or do you have serious difficulty seeing, even when wearing glasses? No 12/03/2014 Do you have serious difficul ty walking or climbing stairs? (5 years old or older) No 12/03/2014 Do you have difficulty dress ing or bathing? (5 years old or older) No 12/03/2014 Because of a physical, menta l, or emotional condition, do you have difficulty doing errands alone such as visiting a doctor s office or shopping? (15 years old or older) No 12/04/19 15 Cognitive Status Response Date of Assessm ent Because of a physical, menta l, or emotional condition, do you have serious difficulty concentrating, remembering, or making decisions? (5 years old or older) No 12/03/2014 documented as of this encounter Miscellaneous Notes * Telephone Encounter - Melinda Roth LPN - 04/21/2024 10:43 AM EDT Care Gaps Comprehensive Care Outreach Last Office/Telemedicine Visit: 02/04/2024 (in office), Visit date not found (telemedicine) Next Office Visit: 10/21/2024 Hemoglobin AIC Results: Lab Results Component Value Date/Time HEMOGLOBIN A1C - [facility] 5.5 02/04/2024 12:04 PM BP Readings from Last 1 Encounters: 02/18/24 118/60 Reviewed Health Maintenance below: Health Maintenance Topic Date Due DXA Scan Never done Zoster Vaccines (1 of 2) Never done DTap/Tdap Vaccines (1 - Tdap) 11/06/2001 Adult Wellness Visit Never done Pneumococcal Vaccine: 65+ Years (2 of 2 - PCV) 02/16/2009 Colonoscopy 11/11/2019 Depression Screening 03/29/2021 Dexa declined Awv declined Colon defer to pcp age Care Gap Outreach Action Taken: Spoke to patient documented in this encounter Plan of Treatment Upcoming Encounters Date Type Department Care Team (Late st Contact Info) Description 10/21/2024 2:40 PM EST Office Visit Family Medicine [address] [place] [phone] Corine Subramanian MD [address] [place] [address] [place] [phone] Health Maintenance Due Date Last Done Comments DXA Scan 1940 Zoster Vaccines (1 of 2) 02/02/1990 DTap/Tdap Vaccines (1 - Tdap) 11/06/2001 11/05/2001 Adult Wellness Visit 02/02/2006 Pneumococcal Vaccine: 65+ Years (2 of 2 - PCV) 02/16/2009 02/17/2008 Colonoscopy 11/11/2019 11/10/2014, 11/10/2014 Depression Screening 03/29/2021 03/29/2020 COVID-19 Vaccine (2022- season) 2023 06/21/2021, 10/04/2020, 09/13/2020 Influenza Vaccine (FLU shot) [...] Not on filedocumented as of this encounter Advance Directives * Full Code (Latest Code Status on File) Date Activated Date Inactivated Comments 12/03/2014 1:21 PM 12/10/2014 6:11 PM This order r eflects the patients wishes and were consensually agreed upon. Care Teams Cloth Examiner Hand Relationship Specialty Start Date End Date Corine Subramanian MD [address] [place] [address] [place] [phone] PCP - General Family Medicine 02/18/24 documented as of this encounter
--- OUTSIDE RECORDS SUMMARY | 2024-10-14 15:10 | External Medical Summary ---
Author Name Unknown Address Unknown Organization [id number]:[facility] - [address] [facility] [place] [address] Laboratory Report Ordering Provider Test Date Status DOMI CHACKO 08/05/2024 11:04:39 Marya l Observation Date Value Abnormality Reference (Units ) Status SYNC LEUKOCYTES IN BLOOD BY AUTOMATED COUNT 08/05/2024 11:04:39 7.18 4.00-10.80 (K/uL) Final Segs 08/05/2024 11:04:39 60.2 40.0-75.0 (%) Final Lymphs % 08/05/2024 11:04:39 28.8 18.0-42.0 (%) Final Monos 08/05/2024 11:04:39 7.7 1.0-11.0 (%) Final Eosinophils 08/05/2024 11:04:39 2.6 0.0-6.0 (%) Final Basos 08/05/2024 11:04:39 0.4 0.0-2.0 (%) Final Immature Granulocyte, Percent 08/05/2024 11:04:39 0.3 0.0-2.0 (%) Final Absolute Segs 08/05/2024 11:04:39 4.32 1.80-7.70 (K/uL) Final Lymphs, absolute 08/05/2024 11:04:39 2.07 1.00-4.80 (K/ul) Final Monos, Abs 08/05/2024 11:04:39 0.55 0.00-1.10 (K/uL) Final Eos, Abs 08/05/2024 11:04:39 0.19 0.00-0.70 (K/uL) Final Basos, Abs 08/05/2024 11:04:39 0.03 0.00-0.20 (K/uL) Final Immature Granulocytes, Number 08/05/2024 11:04:39 0.02 0.00-0.20 (K/uL) Final Performing Location [facility] - [facility] [address] [facility] [id number]
--- OUTSIDE RECORDS SUMMARY | 2024-10-14 15:10 | External Medical Summary | Summary of Care ---
Author Name Unknown Organization [facility] Address [address] [place] [address] Phone [phone] Care Team Providers Care Agency Cashier Name Role Phone Corine Subramanian MD Primary Care Provide r Encounter Details Date Type Department Care Team (Late st Contact Info) Description 09/14/2024 Population Health External Data Unspecified Department Allergies No known active allergiesdocumented as of this encounter (statuses as of 09/14/2024) Medications Triamcinolone Acetonide 0.1 % External Cream (Aristocort)Ind ications:Irrita nt contact dermatitis due to plants, except food Apply topically to affected area 2 times a day. To affected area. 60 g 5 3 Active Loratadine 10 MG Oral Tablet (Claritin) Take 1 Tablet by mouth in the morning. 4 Active Fluticasone Propionate 50 MCG/ACT Nasal Suspension (Flonase) Administer 2 Sprays into each nostril in the morning. 4 Active Lisinopril 10 MG Oral Tablet (Prinivil)Indic ations:HTN, goal below 150/90 Take 1 Tablet by mouth in the morning. 90 Tablet 1 4 Active documented as of this encounter (statuses as of 09/14/2024) Active Problems Problem Noted Date Diagnosed Date Ventral hernia without obstruction or gangrene 0 12/27/2021 BMI 33.0-33.9,adult 04/25/2018 Primary hypertension 07/27/2016 Oral lichen planus 02/19/2015 Dyslipidemia, goal LDL below 100 02/18/2008 Overview (02/19/2012): CHOL 229, HDL 57, LDL 150, TRIG 67 Seasonal allergic rhinitis documented as of this encounter (statuses as of 09/14/2024) Resolved Problems Problem Noted Date Diagnosed Date [...] as of this encounter (statuses as of 09/14/2024) Immunizations Name Administration Dates Next Due COVID-19 [...] of Assessment Author No 12/03/2014 5:13 PM Tammi Carnes RN * Are you blind or do you have serious difficulty seeing, even when wearing glasses? Answer Date of Assessment Author No 12/03/2014 5:13 PM Tammi Carnes RN * Do you have serious difficulty walking or climbing stairs? (5 years old or older) Answer Date of Assessment Author No 12/03/2014 5:13 PM Tammi Carnes RN * Do you have difficulty dressing [...] 2:40 PM EST Office Visit Family Medicine [address] [phone] Corine Subramanian MD [address] [place] [address] [place] [phone] Health Maintenance Due Date Last Done Comments DXA Scan 1940 Zoster Vaccines (1 of 2) 02/02/1990 DTap/Tdap Vaccines (1 - Tdap) 11/06/2001 11/05/2001 Adult Wellness Visit 02/02/2006 Pneumococcal Vaccine: 50+ Years (2 of 2 - PCV) 02/16/2009 02/17/2008 Colonoscopy 11/11/2019 11/10/2014, 11/10/2014 Depression Screening 03/29/2021 03/29/2020 COVID-19 Vaccine ( season) 2024 06/21/2021, 10/04/2020, 09/13/2020 Influenza Vaccine (FLU shot) (#1) 2024 06/26/2023, 06/28/2021, 05/12/2019, Additional history exists GFR 08/05/2025 08/05/2024, 01/24, 01/16/2023, Additional history exists Albumin/Creatinine Ratio 2027 024, [...] and were consensually agreed upon. Care Teams Agency Cashier Relationship Specialty Start Date End Date Corine Subramanian MD [address] [place] [address] [place] [phone] PCP - General Family Medicine 02/18/24 documented as of this encounter
--- OUTSIDE RECORDS SUMMARY | 2024-10-14 15:10 | External Medical Summary ---
Author Name Unknown Address Unknown Organization [id number]:LABORATORY [facility] [place] - [address] [place] [address] Laboratory Report Ordering Provider Test Date Status DOMI CHACKO 08/05/2024 11:04:39 Marya l Observation Date Value Abnormality Reference (Units ) Status BUN 08/05/2024 11:04:39 9 6-20 (mg/dL) Final Creatinine 08/05/2024 11:04:39 0.8 0.5-1.0 (mg/dL) Final Glomerular filtration rate/1.73 sq M.predicted [Volume Rate/Area] in Serum, Plasma or Blood by Creatinine-based formula (CKD-EPI) 08/05/2024 11:04:39 72 >=60 (mL/min) Final eGFR is calculated based on the CKD-EPI 2020 equation. Sodium 08/05/2024 11:04:39 138 135-146 (m mol/L) Final Potassium 08/05/2024 11:04:39 4.5 3.5-5.1 (m mol/L) Final Cl 08/05/2024 11:04:39 104 98-107 (mm ol/L) Final CO2 08/05/2024 11:04:39 24 22-32 (mmo l/L) Final Anion gap 08/05/2024 11:04:39 10 7-15 (mmol /L) Final Glucose 08/05/2024 11:04:39 101 70-120 (mg /dL) Final Calcium 08/05/2024 11:04:39 9.1 8.4-10.2 ( mg/dL) Final Performing Location LABORATORY [facility] [place] - [address] [place] [address]
--- OUTSIDE RECORDS SUMMARY | 2024-10-14 15:10 | External Medical Summary ---
Author Name Unknown Address Unknown Organization [id number]:LAB[facility]ATORY [facility] [place] - [facility] [address] [facility] [address] Laboratory Report Ordering Provider Test Date Status DOMI CHACKO 08/05/2024 11:04:39 Marya l Observation Date Value Abnormality Reference (Units ) Status WBC, Total 08/05/2024 11:04:39 7.18 4.00-10.80 (K/uL) Final RBC 08/05/2024 11:04:39 4.23 3.85-5.15 (M/uL) Final Hemoglobin 08/05/2024 11:04:39 13.6 12.0-15.3 (g/dL) Final HCT 08/05/2024 11:04:39 42.7 36.0-45.2 (%) Final MCV 08/05/2024 11:04:39 100.9 81.5-97.5 (fL) Final MCH 08/05/2024 11:04:39 32.2 27.0-34.0 (pg) Final MCHC 08/05/2024 11:04:39 31.9 32.0-36.0 (g/dL) Final RDW 08/05/2024 11:04:39 13.8 11.5-15.5 (%) Final Platelets 08/05/2024 11:04:39 209 140-400 (K/uL) Final MPV 08/05/2024 11:04:39 10.8 6.6-11.1 (fL) Final Nucleated erythrocytes/100 leukocytes [Ratio] in Blood by Automated count 08/05/2024 11:04:39 0 <=0 (/100 WBCs) Final Performing Location LAB[facility]ORY [facility] [place] - [address] [facility] [address]
--- OUTSIDE RECORDS SUMMARY | 2024-10-14 15:10 | External Medical Summary | Summary of Care ---
Author Name Unknown Organization [facility] Address [address] [place] [address] Phone [phone] Care Team Providers Care Wireless Consultant Name Role Phone Corine Subramanian MD Primary Care Provide r Reason for Visit * Reason Comments Re-Check Encounter Details Date Type Department Care Team (Late st Contact Info) Description 10/09/2024 12:20 PM EST Office Visit Family Medicine [address] [place] [phone] Corine Subramanian MD [address] [place] [address] [place] [id number] HTN, goal below 150/90*; Dyslipidemia, goal LDL below 100; Benign hypertension with stage 3a chronic kidney disease (HCC); Neck pain; Screening for depression Allergies No known active allergiesdocumented as of this encounter (statuses as of 10/09/2024) Medications Triamcinolone Acetonide 0.1 % External Cream [...] each nostril in the morning. 4 Active predniSONE 10 MG Oral Tablet (Deltasone)Ind ications:Neck pain Take 5 tabs for 2 days, 4 tabs for 2 days, 3 tabs for 2 days, 2 tabs for 2 days 1 tab for 2 days 30 Tablet 5 Active Lisinopril 10 MG Oral Tablet (Prinivil)Amanda cations:HTN, goal below 150/90 Take 1 Tablet by mouth in the morning. 90 Tablet 1 4 10/09/19 25 Discontinu ed(Medicat ion List Clean Up) documented as of this encounter (statuses as of 10/09/2024) Active Problems Problem Noted Date Diagnosed Date HTN, goal below 150/90 10/09/2024 Benign hypertension with stage 3a chronic kidney disease 10/09/2024 Ventral hernia without obstruction or gangrene 0 12/27/2021 BMI 33.0-33.9,adult 04/25/2018 Oral lichen planus 02/19/2015 Dyslipidemia, goal LDL below 100 02/18/2008 Overview (02/19/2012): CHOL 229, HDL 57, LDL 150, TRIG 67 Seasonal allergic rhinitis documented as of this encounter (statuses as of 10/09/2024) Resolved Problems Problem Noted Date Diagnosed Date Resolved Date Chronic kidney disease, stage 3a 02/07/2021 02/04/2024 Overview: Per CKD protocol Benign hypertension with sta ge 3a chronic kidney disease 01/03/2021 02/04/2024 Overview: Per CKD protocol CKD (chronic kidney disease), stage III 09/07/2016 06/09/2018 Overview (09/10/2016): GFR 58.9 Primary hypertension 07/27/2016 025 Endometrial cancer 12/03/2014 8 Postmenopausal bleeding 10/16/201411/24 [...] as of this encounter (statuses as of 10/09/2024) Immunizations Name Administration Dates Next Due COVID-19 [...] wiskey at bedtime PHQ-2 Answer Date Recorded PHQ Adult Total Score 0 10/09/2024 Hunger Vital Sign Answer Date Recorded Worried [...] Sign Reading Time Taken Comments Blood Pressure 134/88 10/09/2024 12:25 PM EST Pulse 99 10/09/2024 12:25 PM EST Temperature 36.5 C (97.7 F) 10/09/2024 12:[address] Respiratory Rate - - Oxygen Saturation 96% 10/09/2024 12:25 PM EST Inhaled Oxygen Concentration - - Weight 84.9 kg (187 lb 3.2 oz) 10/09/2024 12:25 PM EST Height - - Body Mass Index 34.24 07/24/2023 1:58 PM EST documented in this encounter Functional Status * Are you deaf or do you have serious difficulty hearing? Answer Date of Assessment Author No 12/03/2014 5:13 PM EDTammi Ortez RN * Are you blind or do you have serious difficulty seeing, even when wearing glasses? Answer Date of Assessment Author No 12/03/2014 5:13 PM EDTammi Ortez RN * Do you have serious difficulty walking or climbing stairs? (5 years old or older) Answer Date of Assessment Author No 12/03/2014 5:13 PM Tammi Carnes RN * Do you have difficulty dressing or bathing? (5 years old or older) Answer Date of Assessment Author No 12/03/2014 5:13 PM Tammi Carnes RN * Because of a physical, mental, or emotional condition, do you have difficulty doing errands alone such as visiting a doctors office or shopping? (15 years old or older) Answer Date of Assessment Author No 12/03/2014 5:13 PM Tammi Carnes RN documented as of this encounter Mental Status * Because of a physical, mental, or emotional condition, do you have serious difficulty concentrating, remembering, or making decisions? (5 years old or older) Answer Entry Date Author No 12/03/2014 5:13 PM Tammi Carnes RN documented in this encounter Progress Notes * Corine Subramanian MD - 10/09/2024 12:40 PM EST Subjective: HPI: Lauren Guillen is a 84 year old female with hx of HLD, Seasonal allergy, HTN, CKD II-III seen for Light headedness and dizziness - for many months - pt has chronic nasal drainage - dizzy with standing up - having sinus pressure - denied any blurry vision - denied any fever - having R neck pain and R shoulder pain --- denied any fall --- denied any numbness/tingling of the UE - using voltaren gel HTN with CKD III: - pt takes lisinopril 10mg daily - per pt home BP 130s/60s - sometimes she forgets to take the med and feels good Patient Active Problem List Diagnosis Seasonal allergic rhinitis Dyslipidemia, goal LDL below 100 Oral lichen planus Primary hypertension BMI 33.0-33.9,adult Ventral hernia without obstruction or gangrene HTN, goal below 150/90 Benign hypertension with stage 3a chronic kidney disease (HCC) Current Outpatient Medications Medication Sig Dispense Refill Triamcinolone Acetonide 0.1 % External Cream (Aristocort) Apply topically to affected area 2 times a day. To affected area. 60 g 5 Loratadine 10 MG Oral Tablet (Claritin) Take 1 Tablet by mouth in the morning. Fluticasone Propionate 50 MCG/ACT Nasal Suspension (Flonase) Administer 2 Sprays into each nostril in the morning. predniSONE 10 MG Oral Tablet (Deltasone) Take 5 tabs for 2 days, 4 tabs for 2 days, 3 tabs for 2 days, 2 tabs for 2 days 1 tab for 2 days 30 Tablet 0 No current facility-administered medications for this visit. [...] performed by Brian Rios MD at [facility]COPY [facility] CT ABD/PELVIS W IV AND W ORAL CONTRAST 05/17/2016 midline supra umbilical hernia with a loop of transverse colon in it. CYSTOSCOPY 01/25/2014 normal ERCP 05/06/2019 choledocholithiasis, acute cholangitis, stent placed, repeat 4-6 wks/[facility] ERCP, DIAGNOSTIC, SPECIMEN COLLECTION 06/17/2019 biliary sludge, stent removed/ENDOSCOPIC RETROGRADE CHOLANGIOPANCREATOGRAPHY (ERCP) DIAGNOSTIC performed by Eric Angel MD at END[facility]COPY [facility] LAPAROSCOPY; CHOLECYSTECTOMY 05/06/2019 Cholecystitis and ascending cholangitis MRI ABDOMEN WO CONTRAST 05/06/2019 gallstones in GB. mild GB wall thickening with trace edema, several filling defects in distal common duct, distended pancreatic duct RADICAL HYSTERECTOMY 12/03/2014 RADICAL ABDOMINAL HYSTERECTOMY performed by Iram Courtney DO at OR [facility] REPAIR INITIAL INCISIONAL OR VENTRAL HERNIA; REDUCIBLE N/A 07/03/2016 Dr Frye UMBIL HERNIA REPAIR (INCARCERATED) AGE 5+YR 03/11/2022 done at [facility] through ED by Dr Valencia Review of [...] Vaping/E-Cigarette Devices ROS: -Per HPI OBJECTIVE: BP 134/88 | Pulse 99 | Temp 97.7 F (36.5 C) | Wt 187 lb 3.2 oz (84.9 kg) | SpO2 96% | BMI 34.24kg/m | BSA 1.93 m PHYSICAL EXAM: Vitals are reviewed General:. NAD, well developed HEENT:. Normal Conjunctiva, EOMI Cardiac:. Normal S1, S2, no murmur Lungs:. CTA, no wheezing or crackles MSK. No TTP of the C spine, TTP of the R lower neck area, normal ROM of the R shoulder and neck Psych:. AAOx3, normal affect ASSESSMENT/PLAN: Stopped the lisinopril - continue home BP check - nurse visit in 3 weeks for BP check I suspect pt's light headedness like due to sinus congestion - will do prednisone taper Recommended frequent neck stretching HTN, goal below 150/90 (Primary) Dyslipidemia, goal LDL below 100 Benign hypertension with stage 3a chronic kidney disease (HCC) Neck pain - predniSONE 10 MG Oral Tablet (Deltasone); Take 5 tabs for 2 days, 4 tabs for 2 days, 3 tabs for 2days, 2 tabs for 2 days 1 tab for 2 days Screening for depression - DEPRESSION SCREENING PERFORMED Follow-up: Return in about 6 months (around 04/08/2025). | Check-out note: Nurse visit in 3 weeks for BP check Corine Subramanian MD Family medicine, [address] [address] documented in this encounter Nursing Notes * Maranda Carlson CMA - 10/09/2024 12:22 PM EST She is here for a routine visit. She is experiencing lightheadedness/dizziness. Pain on he right side of the back of her neck. She says it is muscular;when she squeezes that muscle she feels it. Patient declines imms, colonoscopy and dexa. documented in this encounter Plan of Treatment Upcoming Encounters Date Type Department Care Team (Late st Contact Info) Description 10/30/2024 10:00 AM EST Nurse Only Ancillary [address] [place] [id number] [place], Nurse [address] [place] [phone] 05/25/2025 2:20 PM EDT Office Visit Family Medicine [address] [phone] Corine Subramanian MD [address] [place] [address] [place] [id number] Health Maintenance Due Date Last Done Comments DXA Scan 1940 Zoster Vaccines (1 of 2) 02/02/1990 DTap/Tdap Vaccines (1 - Tdap) 11/06/2001 11/05/2001 Adult Wellness Visit 02/02/2006 Pneumococcal Vaccine: 50+ Years (2 of 2 - PCV) 02/16/2009 02/17/2008 Colonoscopy 11/11/2019 11/10/2014, 11/10/2014 CKD PHOS USE SMARTSET 70420 01/17/202412/25, 06/21/2021, 03/29/2020, Additional history exists COVID-19 Vaccine ( season) 2024 06/21/2021, 10/04/2020, 09/13/2020 Influenza Vaccine (FLU shot) (#1) 2024 06/26/2023, 06/28/2021, 05/12/2019, Additional history exists Albumin/Creatinine Ratio 2025 024, 01/16/2023, 06/21/2021, Additional history exists GFR 2025 08/05/2024, 01/24, 01/16/2023, Additional history exists CKD HGB USE SMARTSET 10946 08/05/202508/05, 08/05/2024, 01/16/2023, Additional history exists Depression Screening 10/09/2025 10/09/2024 RETIRED - COLONOSCOPY-EVERY 5 YRS AGES 18-100 Discontinued 11/10/2014, 11/10/2014 HPV (Gardasil) Vaccine Aged Out No lo nger eligible based on patient's age to complete this topic Hepatitis B Vaccine Aged Out No longe r eligible based on patient's age to complete this topic MENINGOCOCCAL (MENACTRA/MENVEO) Aged Out No longer eligible based on patient's age to complete this topic Meningitis B Vaccine (Bexsero/Trumemba) Aged Out No longer eligible based on patient's age to complete this topic documented as of this encounter Medical Devices Not on filedocumented as of this encounter Visit Diagnoses Diagnosis HTN, goal below 150/90- Primary Dyslipidemia, goal LDL below 100 Other and unspecified hyperlipidemia Benign hypertension with stage 3a chronic kidney disease (HCC) Neck pain Cervicalgia Screening for depression documented in this encounter Advance Directives * Full Code (Latest Code Status on File) Date Activated Date Inactivated Comments 12/03/2014 1:21 PM 12/10/2014 6:11 PM This order reflects the patients wishes and were consensually agreed upon. Care Teams Wireless Consultant Relationship Specialty Start Date End Date Corine Subramanian MD [address] [place] [address] [place] [phone] PCP - General Family Medicine 02/18/24 documented as of this encounter"
[2024-10-14] MEDS: ACETAMINOPHEN 325 MG TAB PO PRN (19:51)
[2024-10-14] MEDS: FLUTICASONE PROPIONATE NA SPR 16 GM BTL SCH (21:46)
[2024-10-14 23:18] LABS: Appearance Urine Clear (Clear); Bacteria Urine Automated 2+ (None Seen); Bilirubin Urine Negative (Negative); Blood Urine Negative (Negative); Cast Urine Automated 0-2 /lpf (0-2); Color Urine Dark Yellow; Glucose Urine UA Negative (Negative); Ketones Urine Trace (Negative); Leukocyte Esterase Urine Negative (Negative); Nitrite Urine Negative (Negative); Protein Urine Trace (Negative); RBC Urine Automated 0-2 /hpf (0-2); Specific Gravity Urine > 1.045 (1.000-1.030); Urobilinogen Urine Negative (Negative); pH Urine 6.5 (4.5-7.5)
[2024-10-15] MEDS: traMADol HCL 50 MG TABLET PO PRN (05:12)
[2024-10-15 07:35] LABS: Basophils # (auto) 0.02 K/uL (0.00-0.20); Basophils % (auto) 0.2 %; Eosinophils # (auto) 0.06 K/uL (0.00-0.50); Eosinophils % (auto) 0.6 %; Hematocrit (blood only) 37.6 % (37.0-47.0); Hemoglobin 12.6 g/dl (12.0-16.0); Immature Granulocytes # (auto) 0.04 K/uL (0.01-0.20); Immature Granulocytes % (auto) 0.4 %; Lymphocytes # (auto) 1.57 K/uL (1.20-3.40); Lymphocytes % (auto) 16.9 %; Mean Corpuscular Hemoglobin 31.2 pg (25.0-34.0); Mean Corpuscular Hgb Conc 33.5 g/dL (32.0-36.0); Mean Corpuscular Volume 93.1 fL (80.0-100.0); Mean Platelet Volume 10.3 fL (9.4-12.4); Monocytes # (auto) 0.82 K/uL (0.11-0.59); Monocytes % (auto) 8.8 %; Neutrophils # (auto) 6.78 K/uL (1.40-6.50); Neutrophils % (auto) 73.1 %; Platelet Count 176 K/uL (130-400); RDW Coefficient of Variation 12.6 % (11.5-14.5); Red Blood Count 4.04 M/uL (4.20-5.40); White Blood Count 9.29 K/ul (4.8-10.8)
[2024-10-15 07:53] LABS: BUN Creatinine Ratio 28.6 (10-20); Calcium 8.5 mg/dl (8.6-10.3); Chol HDL Ratio 3.3 (0-5); Creatinine Clr Calc Pharmacy 68.2 ml/min; Potassium 4.1 mmol/L (3.5-5.1)
[2024-10-15] MEDS: ATORVASTATIN 40 MG TAB PO SCH (07:57)
[2024-10-15] MEDS: ASPIRIN 81 MG ECTAB PO SCH (07:57)
[2024-10-15] MEDS: LORATADINE 10 MG TAB PO SCH (07:57)
[2024-10-15] MEDS: CLOPIDOGREL BISULFATE 75 MG TAB PO SCH (07:57)
--- NOTE | 2024-10-15 08:31 | XRay Report ---
EXAM: XR ribs RT min 2V CLINICAL HISTORY: fall, pain TECHNIQUE: X-ray images of the unilateral right ribs were obtained in [PA/AP, lateral, and oblique projections]. COMPARISON: No previous studies are available for comparison. FINDINGS: Minimally displaced fracture of right 5th and 6th rib posterior Hypertransrradiancy seen at the right upper/ apical lung zone with the possible visceral pleural line predominantly seen on oblique view which could be pneumothorax, CT chest is advised for further evaluation No abnormal rib lucencies or sclerotic lesions. Chest Wall: The soft tissues of the chest wall appear unremarkable. No evidence of subcutaneous emphysema or soft tissue masses. Lungs and Pleura: The lung springer are clear with no evidence of pneumothorax or pleural effusion. No pulmonary infiltrates or masses were identified. Additional Findings: visualized portions of the spine, clavicles, and shoulders are unremarkable. Spondylodegenrative changes of the visualized vertebrae. Osteoarthritic changes of the right shoulder. Surgical clips are noted in the right hypochondrium. IMPRESSION: 1. Minimally displaced fracture of right 5th and 6th rib posterior 2. Hypertransrradiancy seen at the right upper/ apical lung zone with the possible visceral pleural line predominantly seen on oblique view which could be pneumothorax, CT chest is advised for further evaluation (Disclaimer: "A subtle bone abnormality or fracture may not be readily apparent on x-rays, thus clinical correlation and further imaging including follow-up CT, MRI, or follow-up x-rays are advised as needed"). Electronically signed by Portillo Rock 10-15-2024 08:30 AM
[2024-10-15 09:14] LABS: Estimated Average Glucose 108 mg/dl; Hemoglobin A1C 5.4 % (4.5-5.6)
--- NOTE | 2024-10-15 09:16 | Hospitalist Progress Note ---
Date of Service October 15, 2024 Assessment & Plan (1) Stroke: Plan Pt is an 84-year-old female who has history of allergic rhinitis, HTN & HLD who presents to ED secondary to right sided weakness and difficulty speaking x 1 day. Her last known well is 930 last evening whenever she went to bed. Pt woke up with RUE weakness and garbled speech. Acute CVA Pt presented with R sided weakness and garbled speech Head CT unremarkable Head and Neck CTA unremarkable Brain MRI noting "Small acute left periventricular white matter stroke" On aspirin, plavix and atorvastatin hemoglobin a1c pending Lipid panel Permissive HTN Echo noting no shunt Neurology consulted, appreciate further recs PT/OT/speech Continue to monitor Possible UTI UA suggestive of infection urine cx pending Empiric IV rocephin Adjust abx based on culture Right Rib fractures Possible Pneumothorax XR ribs noting minimally displaced fracture of R 5th and 6th posterior rib Radiology recommending CT chest to rule out pneumothorax CT chest noting hiatal hernia, no pneumothorax Consider pulmonology based on pending CT results Pain control prn-currently getting tylenol with tramadol Cautious use of IV dilaudid for severe pain Continue to monitor Hiatal hernia Esophagitis On pantoprazole BID for esophagitis Hypokalemia replete as needed Hyperglycemia Hgba1c pending Continue other home meds as ordered Diet: HH DVT prophylaxis: SCDs at this time Dispo: per PT/OT recs Admission and Anticipated Discharge Date Admission Date: October 14, 2024 Subjective Patient was seen laying in bed Still has garbled speech and still weak on the right Attempt made to contact patient's son via telephone for update, unsuccessful PT recommending acute rehab Review of Systems Review of Systems: All systems reviewed & are unremarkable except as noted in Subjective Physical Exam Physical Exam: General: Alert, oriented HEENT: NC/AT neuro: weakness on the right, garbled speech Chest: Nontender to palpation. CV: RRR Resp: Breath sounds clear bilaterally, no increased effort of breathing Abdomen: Soft, nontender Extremities: No edema in lower extremities bilaterally. Results & Data Results & Data Vital Signs (Past 12 Hours) Vital Signs Temp Pulse Pulse Resp BP Pulse Ox O2 Del Method 10/15/24 07:54 36.3 C L 78 15 181/95 H 95 Room Air 10/15/24 02:15 36.4 C L 79 18 158/83 H 95 Room Air 10/15/24 00:56 69 10/14/24 22:58 36.6 C 77 18 138/79 96 Room Air Diagnostic Findings Chest X-Ray 10/14/24 11:14 XR chest 1V portable CLINICAL HISTORY: weakness COMPARISON STUDY: No previous studies for comparison. FINDINGS: Lung volumes are mildly diminished. There is no pneumothorax or pleural effusion. There is cardiomegaly without evidence for pulmonary edema. Minimal right midlung left basilar densities favor atelectasis. IMPRESSION: 1. No acute cardiopulmonary findings. 2. Cardiomegaly. Mild bibasilar ACT 112: Negative or not required by law. Electronically signed by: Galdino Culp M.D. 10/14/2024 11:[address] 10/14/24 11:14 CT OF THE HEAD WITHOUT CONTRAST CLINICAL HISTORY: Right-sided weakness. COMPARISON STUDY: Head CT October 29, 2023. TECHNIQUE: Helical axial images of the head were obtained without IV contrast. Automated exposure control was utilized for the study. A dose lowering technique was utilized adhering to the principles of ALARA. FINDINGS: No acute intracranial hemorrhage, midline shift or mass effect is present. The ventricular system is unremarkable. The basal cisterns are patent. No extra-axial collections are present. There are no findings to suggest acute dural sinus thrombosis or acute territorial infarct. No significant calvarial abnormalities are present. Secretions within the right sphenoid sinus are present. IMPRESSION: No acute intracranial findings. ACT 112: Negative or not required by law. Electronically signed by: Galdino Culp M.D. 10/14/2024 11:47 AM Head CTA 10/14/24 11:14 CTA ANGIOGRAPHY OF THE HEAD CLINICAL HISTORY: Right-sided weakness. COMPARISON STUDY: Head CT October 29, 2023. TECHNIQUE: Helical axial images of the head were obtained following uneventful intravenous administration of 112 cc of Optiray. Sagittal and coronal reconstructions were viewed as well as maximal intensity projections on an independent 3-D workstation. Automated exposure control was utilized for the study. A dose lowering technique was utilized adhering to the principles of ALARA. FINDINGS: No acute intracranial hemorrhage, midline shift or mass effect is present. Ventricular system is normal. Basal cisterns are patent. There is no intracranial aneurysm. The bilateral M1, M2, A1 and A2 segments are patent. There is moderate plaque within the bilateral cavernous carotids without severe stenosis. Left vertebral artery is dominant. No large vessel occlusion is present. There is persistence of the left posterior cerebral artery. IMPRESSION: No large vessel occlusion. No intracranial aneurysm. ACT 112: Negative or not required by law. Electronically signed by: Galdino Culp M.D. 10/14/2024 11:51 AM Neck CTA 10/14/24 11:14 CT angio neck with con CLINICAL HISTORY: R sided weakness. COMPARISON STUDY: None TECHNIQUE: Following the IV administration of 112 cc of Optiray, CT angiogram of the neck was performed from the aortic arch to the skull base. Images are reviewed in the axial, sagittal, and coronal planes. 3-D MIPS images are created and assessed. IV contrast was administered without complication. All measurements were calculated based on NASCET criteria. A dose lowering technique was utilized adhering to the principles of ALARA. CT DOSE: 1145.07 mGy.cm FINDINGS: There is no evidence of hemodynamically significant stenosis. Calcified plaques are present at the carotid bifurcations bilaterally. There is no occlusive disease or dissection. The right vertebral artery is diminutive with a dominant left vertebral artery. IMPRESSION: No hemodynamically significant stenosis, occlusive disease, or dissection. ACT 112: Negative or not required by law. The above report was generated using voice recognition software. It may contain grammatical, syntax or spelling errors. Electronically signed by: Magy Chavez M.D. 10/14/2024 12:14 PM Brain MRI 10/14/24 12:51 MR brain wo con CLINICAL HISTORY: stroke like symptoms slurred speech COMPARISON STUDY: None TECHNIQUE: Multiplanar MRI of the brain was performed using various pulse sequences without gadolinium enhancement. FINDINGS: There is an area of very strict diffusion in the left periventricular white matter consistent with an acute stroke. The lesion measures approximately 12 mm in size. It is not associated with hemorrhage or mass effect. No additional acute findings are noted. There is no intra-axial or extra-axial fluid collection, hemorrhage, or mass. The ventricles and sulci demonstrate this senescent atrophy. There are multiple T2 and FLAIR hyperintense white matter lesions most commonly associated with small vessel insufficiency. There are normal flow voids at the skull base. There is no fluid in the mastoid air cells. IMPRESSION: Small acute left periventricular white matter stroke. No evidence of mass effect or hemorrhage. ACT 112: Negative or not required by law. Electronically signed by: Magy Chavez M.D. 10/14/2024 2:12 PM Ribs X-Ray 10/15/24 07:00 EXAM: XR ribs RT min 2V CLINICAL HISTORY: fall, pain TECHNIQUE: X-ray images of the unilateral right ribs were obtained in [PA/AP, lateral, and oblique projections]. COMPARISON: No previous studies are available for comparison. FINDINGS: Minimally displaced fracture of right 5th and 6th rib posterior Hypertransrradiancy seen at the right upper/ apical lung zone with the possible visceral pleural line predominantly seen on oblique view which could be pneumothorax, CT chest is advised for further evaluation No abnormal rib lucencies or sclerotic lesions. Chest Wall: The soft tissues of the chest wall appear unremarkable. No evidence of subcutaneous emphysema or soft tissue masses. Lungs and Pleura: The lung springer are clear with no evidence of pneumothorax or pleural effusion. No pulmonary infiltrates or masses were identified. Additional Findings: visualized portions of the spine, clavicles, and shoulders are unremarkable. Spondylodegenrative changes of the visualized vertebrae. Osteoarthritic changes of the right shoulder. Surgical clips are noted in the right hypochondrium. IMPRESSION: 1. Minimally displaced fracture of right 5th and 6th rib posterior 2. Hypertransrradiancy seen at the right upper/ apical lung zone with the possible visceral pleural line predominantly seen on oblique view which could be pneumothorax, CT chest is advised for further evaluation (Disclaimer: "A subtle bone abnormality or fracture may not be readily apparent on x-rays, thus clinical correlation and further imaging including follow-up CT, MRI, or follow-up x-rays are advised as needed"). Electronically signed by Portillo Rock 10-15-2024 08:30 AM
[2024-10-15] MEDS: HYDROmorphone INJ 0.5 MG/0.5 ML SYR IV PRN (09:36)
[2024-10-15] MEDS: LIDOCAINE 5% 1 PATCH TD SCH (09:36)
[2024-10-15] MEDS: cefTRIAXone SODIUM 2,000 MG/50 ML BAG IV SCH (09:37)
--- NOTE | 2024-10-15 11:00 | CT Scan Report ---
CT OF THE CHEST WITHOUT IV CONTRAST CLINICAL HISTORY: f/u rib xray, possible pneumothorax COMPARISON STUDY: Chest radiograph October 14, 2024. Right rib series October 15, 2024. CT DOSE: 672.95 mGy.cm TECHNIQUE: Axial images of the chest were obtained without IV contrast. Images were reviewed in the axial, sagittal, and coronal planes. IV contrast was not administered for this examination. Automat ed exposure control was utilized for the study. A dose lowering technique was utilized adhering to t he principles of ALARA. FINDINGS: There is no pneumothorax. Trace right pleural effusion is noted. Subpleural right lower lo be opacity favors atelectasis. The heart is moderately enlarged. There is moderate coronary artery ca lcification. Small hiatal hernia. Mid to distal esophageal wall thickening is present. There are acut e minimally displaced fractures of the anterior right fifth and sixth ribs. No additional acute rib f ractures are present. There are no thoracic spine fractures. The gallbladder is surgically absent. IMPRESSION: 1. Acute minimally displaced anterior right fifth and sixth rib fractures. No pneumothorax. Trace rig ht pleural effusion with subpleural opacity suggestive of atelectasis. 2. Cardiomegaly. 3. Hiatal hernia. Mid to distal esophageal wall thickening which may represent esophagitis. ACT 112: Negative or not required by law. Electronically signed by: Galdino Culp M.D. 10/15/2024 10:59 AM
--- NOTE | 2024-10-15 15:42 | Neurology Consultation ---
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 Echocardiogram does not show any cardiac source Plan I agree with continuation of aspirin and Plavix for 21 days,, atorvastatin 80 mg this should be followed by a single antiplatelet in addition to atorvastatin 40 mg . Recommend a Zio patch upon discharge Follow-up with neurology as an outpatient Telehealth Consultation Telehealth Information Telehealth Information: I performed this visit using a real-time telehealth connection between my location and the patients location ([facility]). After connecting through interactive tele-video, patient was identified by name and date of and/or wristband check.Patient (or authorized healthcare herbicide service sales representative) was informed that this was a telemedicine visit and it was being conducted confidentially over secure lines. My office door was closed and no one else was present in the room with me.Patient (or authorized healthcare herbicide service sales representative) provided consent to proceed with the visit, expressed an understanding of privacy and security of the telemedicine visit, and gave permission to have a hospital herbicide service sales representative in the room in order to assist with the visit and to conduct portions of the visit, as needed. I informed the patient (or authorized healthcare herbicide service sales representative) that I reviewed their record and presented the opportunity for them to ask any questions regarding the visit today. The patient agreed to participate. History of Present Illness Reason for Consultation: Acute stroke Requesting Physician: Malissa Mora MD Attending Physician: Malissa Mora MD History of Present Illness Lauren Zhou is an 84 Y.O ,allergic rhinitis, HTN & HLD presented yesterday with right-sided weakness and speech difficulty that was noted yesterday by her son, the patient reported that she woke up this morning not feeling right and felt that her right side is weak, had difficulty with gait and she stumbled off her chair and fell, she was noted to have difficulties with speech. Prior history of neck pain for which she was on prednisone. The patient drinks whiskey at bedtime and denies any tobacco use. The patient was evaluated as a stroke alert and was started on aspirin and Plavix in addition to atorvastatin. She was noted to have rib fractures and had received pain to my evaluation was able to participate Today she offers no new complaints she still has slurred speech and right facial droop, right leg is weaker than the right arm Allergies Allergy/AdvReac Type Severity Reaction Status Date / Time No Known Allergies Allergy Verified 03/11/22 16:42 Home Medications Medication Instructions Recorded Confirmed Type fluticasone propionate 50 1 spray intranasal BID 10/14/24 10/14/24 History mcg/actuation nasal spray,suspension loratadine 10 mg tablet (Claritin) 10 mg PO DAILY 10/14/24 10/14/24 History Patient History Medical History (Updated 10/15/24 @ 16:23 by Hira Pruitt MD) Allergic rhinitis HTN (hypertension) Surgical History (Updated 10/14/24 @ 13:41 by Radha Lam PA-C) S/P laparoscopic cholecystectomy Family History Other No significant family history Social History Smoking Status: Never smoker Second Hand Exposure: No; Do You Dip or Chew Tobacco: No; Hx Alcohol Use: Yes Alcohol type: hard liquor Hx Substance Use: No Preferred Language: Kyrgyz Communication Ability: Effective Ski Binding Fitter And Repairer Required: No Beliefs That Will Affect Care: None Current Living Situation: Alone Other Information That Helps Us Care for You: No Feels Safe at Home: Yes Safety Concerns: Feels Safe At This Time Assistive Devices: None Review of Systems Constitutional: Patient denies weight loss, fever, chills, and night sweats Eyes: Patient denies change in vision, tearing, pain, and redness ENT: Patient denies pain, bleeding, rhinorrhea, and dysphagia Cardiovascular: Patient denies chest pain, palpitation, dyspnea at rest, and dyspnea with exertion Respiratory: Patient denies shortness of breath, cough, wheezing, and productive cough GI: Patient denies reflux, pain, constipation, and diarrhea Skin: Patient denies rash, dryness, and itching Allergies/Immune System: Patient denies rhinorrhea, seasonal allergies, reaction to current MEDS, and joint swelling Endocrine: Patient denies weight loss, weight gain, temperature intolerance, and excessive thirst Neurological: All negative unless mentioned in the HPI Physical Exam General Constitutional: Appearance normally developed Head and face: normocephalic and atraumatic Eyes: no ptosis, no anisocoria, and no dysconjugate gaze Respiratory: normal effort Cardiovascular: regular rhythm and regular rate Abdomen: non distended Skin: no rashes, lesions, or ulcers noted Psychiatric: normal judgement and insight, normal mood, and normal affect NEUROLOGIC EXAMINATION: Mental Status:alert, oriented to time, place, person, normal recent memory, normal remote memory, normal attention span, normal concentration, normal language and normal fund of knowledge, significant dysarthria Cranial Nerves: CN 2 - no visual defect on confrontation and pupils round, equal, reactive to light CN 3, 4, 6 - extra-ocular movements intact and no nystagmus CN 5 - facial sensation intact CN 7 - right facial weakness CN 8 - intact hearing CN 9, 10 - palate symmetric, normal gag CN 11 - good shoulder shrug CN 12 - tongue midline MOTOR: Strength was at least antigravity throughout RUE:3/5, RLE 1-2/5 There were no abnormal movements SENSATION: intact and symmetric to pinprick, light touch, vibration and joint position GAIT: deffered COORDINATION: no ataxia with finger to nose testing and heel to burton testing REFLEXES: cannot assess over telemedicine NIH Stroke Scale: 1a. Level of Consciousness: alert = 0 1b. LOC Questions: (month, age): both correct = 0 1c. LOC Commands (open and close eyes, make fist and let go using non-paretic hand): obeys both correctly = 0 2. Best Gaze (eyes open and patient follows examiner's finger or face): normal = 0 3. Visual (visual threat or finger counting in each quadrant): no loss = 0 4. Facial Palsy (show teeth, raise eye brows and squeeze eyes shut, or grimace symmetry in a comatose patient):significant = 2 5a. Motor Arm (extend arm (palms down) to 90 degrees and score drift/movement (10 seconds) - Left: no drift = 0 5b. Motor Arm: (extend arm (palms down) to 90 degrees and score drift/movement (10 seconds) - Right:mild drift = 1 6a. Motor Leg (elevate leg 30 degrees and score drift/ movement (5 seconds) - Left: no drift = 0 6b. Motor Leg (elevate leg 30 degrees and score drift/ movement (5 seconds) - Right: significant drift = 2 7. Limb Ataxia (finger to nose, heel down burton): absent = 0 8. Sensory (pin prick to face, arm, trunk and leg, compare side to side): normal = 0 9. Best Language: no aphasia = 0 10. Dysarthria (evaluate speech clarity by patient repeating listed words): impaired articulation = 2 11. Extinction and Inattention: no neglect = 0 Total: 7 Results & Data Vital Signs (Past 12 Hours) Vital Signs Temp Pulse Pulse Resp BP Pulse Ox O2 Del Method 10/15/24 15:34 36.6 C 86 19 160/90 H 94 Room Air 10/15/24 15:03 75 10/15/24 11:03 36.5 C 83 18 153/92 H 96 Room Air 10/15/24 08:00 69 10/15/24 07:54 36.3 C L 78 15 181/95 H 95 Room Air Laboratory Results Laboratory Results - last 24 hr 10/14/24 10/15/24 22:46 07:02 WBC 9.29 RBC 4.04 L Hgb 12.6 Hct 37.6 MCV 93.1 MCH 31.2 MCHC 33.5 RDW Std Deviation 43.0 RDW Coeff of Francisco Javier 12.6 Plt Count 176 MPV 10.3 Immature Gran % (Auto) 0.4 Neut % (Auto) 73.1 Lymph % (Auto) 16.9 [place] % (Auto) 8.8 Eos % (Auto) 0.6 Baso % (Auto) 0.2 Neut # (Auto) 6.78 H Lymph # (Auto) 1.57 [place] # (Auto) 0.82 H Eos # (Auto) 0.06 Baso # (Auto) 0.02 Immature Gran # (Auto) 0.04 Sodium 137 Potassium 4.1 D Chloride 106 Carbon Dioxide 25 Anion Gap 6 BUN 18 Creatinine 0.63 Est Cr Clr Drug Dosing 68.2 eGFR 87.42 BUN/Creatinine Ratio 28.6 H Glucose 101 H Estimat Average Glucose 108 Hemoglobin A1c 5.4 Calcium 8.5 L Triglycerides 111 Cholesterol 197 LDL Cholesterol, Calc 116 VLDL Cholesterol, Calc 22 HDL Cholesterol 59 Cholesterol/HDL Ratio 3.3 Urine Color Dark Yellow Urine Appearance Clear Urine pH 6.5 Ur Specific Finger > 1.045 H Urine Protein Trace H Urine Glucose (UA) Negative Urine Ketones Trace H Urine Blood Negative Urine Nitrite Negative Urine Bilirubin Negative Urine Urobilinogen Negative Ur Leukocyte Esterase Negative Urine WBC (Auto) 6-10 H Urine RBC (Auto) 0-2 U Hyaline Cast (Auto) 0-2 U Epithel Cells (Auto) 3-5 H Urine Bacteria (Auto) 2+ H Diagnostic Findings MRI brain :Left subcortical periventricular infarct extending to the left internal capsule CTA of the head and neck showed intra and extracranial atherosclerotic disease most significant at the bilateral carotid bifurcations without significant stenosis Echocardiogram LVEF: 60-65%, concentric left ventricular hypertrophy, aortic valve sclerosis, mild tricuspid regurgitation Medications Administered Home Medications Medication Instructions Recorded Confirmed Last Taken fluticasone propionate 50 1 spray intranasal BID 10/14/24 10/14/24 Unknown mcg/actuation nasal spray,suspension loratadine 10 mg tablet (Claritin) 10 mg PO DAILY 10/14/24 10/14/24 Unknown Active Medications Generic Name Dose Route Start Last Admin Trade Name Freq PRN Reason Stop Dose Admin Acetaminophen 650 mg 10/14/24 15:03 10/15/24 12:11 Acetaminophen 325 Mg Tab PO 11/13/24 15:02 650 mg Q4H PRN Administration Pain or Fever Aspirin 81 mg 10/15/24 09:00 10/15/24 07:57 Aspirin 81 Mg Ectab PO 11/14/24 08:59 81 mg QAM MARIE Administration Atorvastatin Calcium 40 mg 10/15/24 09:00 10/15/24 07:57 Atorvastatin 40 Mg Tab PO 11/14/24 08:59 40 mg QAM MARIE Administration Clopidogrel Bisulfate 75 mg 10/15/24 09:00 10/15/24 07:57 Clopidogrel Bisulfate 75 Mg Tab PO 11/14/24 08:59 75 mg QAM MARIE Administration Fluticasone Propionate 1 sprays 10/14/24 21:00 10/15/24 07:57 Fluticasone Propionate Na Spr 16 Gm Btl NA 11/13/24 20:59 1 sprays BID MARIE Administration Hydromorphone HCl 0.25 mg 10/15/24 09:15 10/15/24 09:36 Hydromorphone Inj 0.5 Mg/0.5 Ml Syr IV 10/29/24 09:14 0.25 mg Q8H PRN Administration Severe Pain (Scale 7, 8, 9,10) Ceftriaxone Sodium 2,000 mg in 50 mls @ 100 mls/hr 10/15/24 09:15 10/15/24 10:07 Rocephin IV 10/25/24 09:14 Infused Q24H MARIE Infusion Lidocaine 1 patch 10/15/24 09:15 10/15/24 09:36 Lidocaine 5% 1 Patch TD 11/14/24 09:14 1 patch QAM MARIE Administration Loratadine 10 mg 10/15/24 09:00 10/15/24 07:57 Loratadine 10 Mg Tab PO 11/14/24 08:59 10 mg DAILY MARIE Administration Tramadol HCl 25 - 50 mg 10/15/24 04:44 10/15/24 13:24 Tramadol Hcl 50 Mg Tablet PO 11/14/24 04:43 50 mg Q4H PRN Administration Pain
[2024-10-15] MEDS: PANTOprazole 40 MG TAB PO SCH (19:46)
[2024-10-16 08:18] LABS: Basophils # (auto) 0.01 K/uL (0.00-0.20); Basophils % (auto) 0.1 %; Eosinophils # (auto) 0.11 K/uL (0.00-0.50); Eosinophils % (auto) 0.9 %; Hematocrit (blood only) 38.7 % (37.0-47.0); Hemoglobin 13.1 g/dl (12.0-16.0); Immature Granulocytes # (auto) 0.07 K/uL (0.01-0.20); Immature Granulocytes % (auto) 0.6 %; Lymphocytes # (auto) 1.34 K/uL (1.20-3.40); Lymphocytes % (auto) 10.7 %; Mean Corpuscular Hemoglobin 32.1 pg (25.0-34.0); Mean Corpuscular Hgb Conc 33.9 g/dL (32.0-36.0); Mean Corpuscular Volume 94.9 fL (80.0-100.0); Mean Platelet Volume 10.4 fL (9.4-12.4); Monocytes # (auto) 1.03 K/uL (0.11-0.59); Monocytes % (auto) 8.2 %; Neutrophils % (auto) 79.5 %; Platelet Count 189 K/uL (130-400); RDW Coefficient of Variation 12.6 % (11.5-14.5); RDW Standard Deviation 43.8 fL (36.4-46.3); Red Blood Count 4.08 M/uL (4.20-5.40); White Blood Count 12.56 K/ul (4.8-10.8)
[2024-10-16 08:41] LABS: Calcium 8.6 mg/dl (8.6-10.3); Phosphorus 3.9 mg/dl (2.5-4.9); Potassium 4.3 mmol/L (3.5-5.1)
[2024-10-16] MEDS: ATORVASTATIN 40 MG TAB PO SCH (09:17)
--- NOTE | 2024-10-16 11:07 | Hospitalist Progress Note ---
Date of Service October 16, 2024 Assessment & Plan (1) Stroke: Plan Pt is an 84-year-old female who has history of allergic rhinitis, HTN & HLD who presents to ED secondary to right sided weakness and difficulty speaking x 1 day. Her last known well is 930 last evening whenever she went to bed. Pt woke up with RUE weakness and garbled speech. Acute CVA Pt presented with R sided weakness and garbled speech Head CT unremarkable Head and Neck CTA unremarkable Brain MRI noting "Small acute left periventricular white matter stroke" On aspirin, plavix and atorvastatin hemoglobin a1c normal Lipid panel normal Permissive HTN Echo noting no shunt Neurology consulted, appreciate further recs. Noted or stated the following: "...Likely related to atherosclerotic disease...I agree with continuation of aspirin and Plavix for 21 days,, atorvastatin 80 mg this should be followed by a single antiplatelet in addition to atorvastatin 40 mg . Recommend a Zio patch upon discharge Follow-up with neurology as an outpatient..." PT/OT/speech - PT recommending acute rehab placement. speech recommending easy to chew diet Continue to monitor Possible UTI UA suggestive of infection urine cx NGTD Empiric IV rocephin Adjust abx based on culture Right Rib fractures Possible Pneumothorax XR ribs noting minimally displaced fracture of R 5th and 6th posterior rib Radiology recommending CT chest to rule out pneumothorax CT chest noting hiatal hernia, no pneumothorax Pain control prn-currently getting tylenol with tramadol Cautious use of IV dilaudid for severe pain Continue to monitor Hiatal hernia Esophagitis On pantoprazole BID for esophagitis Hypokalemia replete as needed Hyperglycemia Hgba1c normal Continue other home meds as ordered Diet: HH/easy to chew DVT prophylaxis: SCDs at this time Dispo: per PT/OT recs Admission and Anticipated Discharge Date Admission Date: October 14, 2024 Subjective Patient was seen laying in bed Still has garbled speech and still weak on the right Indicating that she has some hearing loss stable for discharge to acute rehab Discussion with patient's son last night who was concerned about her reflux Review of Systems Review of Systems: All systems reviewed & are unremarkable except as noted in Subjective Physical Exam Physical Exam: General: Alert, oriented neuro: weakness on the right, garbled speech Chest: Nontender to palpation. CV: RRR Resp: Breath sounds clear bilaterally, no increased effort of breathing Abdomen: Soft, nontender Extremities: No edema in lower extremities bilaterally. Results & Data Results & Data Vital Signs (Past 12 Hours) Vital Signs Temp Pulse Pulse Resp BP Pulse Ox O2 Del Method 10/16/24 07:41 36.4 C L 84 20 135/80 93 Room Air 10/16/24 02:56 36.6 C 90 18 152/81 H 94 Room Air 10/16/24 00:31 83 Diagnostic Findings Chest X-Ray 10/14/24 11:14 XR chest 1V portable CLINICAL HISTORY: weakness COMPARISON STUDY: No previous studies for comparison. FINDINGS: Lung volumes are mildly diminished. There is no pneumothorax or pleural effusion. There is cardiomegaly without evidence for pulmonary edema. Minimal right midlung left basilar densities favor atelectasis. IMPRESSION: 1. No acute cardiopulmonary findings. 2. Cardiomegaly. Mild bibasilar ACT 112: Negative or not required by law. Electronically signed by: Galdino Culp M.D. 10/14/2024 11:[address] 10/14/24 11:14 CT OF THE HEAD WITHOUT CONTRAST CLINICAL HISTORY: Right-sided weakness. COMPARISON STUDY: Head CT October 29, 2023. TECHNIQUE: Helical axial images of the head were obtained without IV contrast. Automated exposure control was utilized for the study. A dose lowering technique was utilized adhering to the principles of ALARA. FINDINGS: No acute intracranial hemorrhage, midline shift or mass effect is present. The ventricular system is unremarkable. The basal cisterns are patent. No extra-axial collections are present. There are no findings to suggest acute dural sinus thrombosis or acute territorial infarct. No significant calvarial abnormalities are present. Secretions within the right sphenoid sinus are present. IMPRESSION: No acute intracranial findings. ACT 112: Negative or not required by law. Electronically signed by: Galdino Culp M.D. 10/14/2024 11:47 AM Head CTA 10/14/24 11:14 CTA ANGIOGRAPHY OF THE HEAD CLINICAL HISTORY: Right-sided weakness. COMPARISON STUDY: Head CT October 29, 2023. TECHNIQUE: Helical axial images of the head were obtained following uneventful intravenous administration of 112 cc of Optiray. Sagittal and coronal reconstructions were viewed as well as maximal intensity projections on an independent 3-D workstation. Automated exposure control was utilized for the study. A dose lowering technique was utilized adhering to the principles of ALARA. FINDINGS: No acute intracranial hemorrhage, midline shift or mass effect is present. Ventricular system is normal. Basal cisterns are patent. There is no intracranial aneurysm. The bilateral M1, M2, A1 and A2 segments are patent. There is moderate plaque within the bilateral cavernous carotids without severe stenosis. Left vertebral artery is dominant. No large vessel occlusion is present. There is persistence of the left posterior cerebral artery. IMPRESSION: No large vessel occlusion. No intracranial aneurysm. ACT 112: Negative or not required by law. Electronically signed by: Galdino Culp M.D. 10/14/2024 11:51 AM Neck CTA 10/14/24 11:14 CT angio neck with con CLINICAL HISTORY: R sided weakness. COMPARISON STUDY: None TECHNIQUE: Following the IV administration of 112 cc of Optiray, CT angiogram of the neck was performed from the aortic arch to the skull base. Images are reviewed in the axial, sagittal, and coronal planes. 3-D MIPS images are created and assessed. IV contrast was administered without complication. All measurements were calculated based on NASCET criteria. A dose lowering technique was utilized adhering to the principles of ALARA. CT DOSE: 1145.07 mGy.cm FINDINGS: There is no evidence of hemodynamically significant stenosis. Calcified plaques are present at the carotid bifurcations bilaterally. There is no occlusive disease or dissection. The right vertebral artery is diminutive with a dominant left vertebral artery. IMPRESSION: No hemodynamically significant stenosis, occlusive disease, or dissection. ACT 112: Negative or not required by law. The above report was generated using voice recognition software. It may contain grammatical, syntax or spelling errors. Electronically signed by: Magy Chavez M.D. 10/14/2024 12:14 PM Brain MRI 10/14/24 12:51 MR brain wo con CLINICAL HISTORY: stroke like symptoms slurred speech COMPARISON STUDY: None TECHNIQUE: Multiplanar MRI of the brain was performed using various pulse sequences without gadolinium enhancement. FINDINGS: There is an area of very strict diffusion in the left periventricular white matter consistent with an acute stroke. The lesion measures approximately 12 mm in size. It is not associated with hemorrhage or mass effect. No additional acute findings are noted. There is no intra-axial or extra-axial fluid collection, hemorrhage, or mass. The ventricles and sulci demonstrate this senescent atrophy. There are multiple T2 and FLAIR hyperintense white matter lesions most commonly associated with small vessel insufficiency. There are normal flow voids at the skull base. There is no fluid in the mastoid air cells. IMPRESSION: Small acute left periventricular white matter stroke. No evidence of mass effect or hemorrhage. ACT 112: Negative or not required by law. Electronically signed by: Magy Chavez M.D. 10/14/2024 2:12 PM Ribs X-Ray 10/15/24 07:00 EXAM: XR ribs RT min 2V CLINICAL HISTORY: fall, pain TECHNIQUE: X-ray images of the unilateral right ribs were obtained in [PA/AP, lateral, and oblique projections]. COMPARISON: No previous studies are available for comparison. FINDINGS: Minimally displaced fracture of right 5th and 6th rib posterior Hypertransrradiancy seen at the right upper/ apical lung zone with the possible visceral pleural line predominantly seen on oblique view which could be pneumothorax, CT chest is advised for further evaluation No abnormal rib lucencies or sclerotic lesions. Chest Wall: The soft tissues of the chest wall appear unremarkable. No evidence of subcutaneous emphysema or soft tissue masses. Lungs and Pleura: The lung springer are clear with no evidence of pneumothorax or pleural effusion. No pulmonary infiltrates or masses were identified. Additional Findings: visualized portions of the spine, clavicles, and shoulders are unremarkable. Spondylodegenrative changes of the visualized vertebrae. Osteoarthritic changes of the right shoulder. Surgical clips are noted in the right hypochondrium. IMPRESSION: 1. Minimally displaced fracture of right 5th and 6th rib posterior 2. Hypertransrradiancy seen at the right upper/ apical lung zone with the possible visceral pleural line predominantly seen on oblique view which could be pneumothorax, CT chest is advised for further evaluation (Disclaimer: "A subtle bone abnormality or fracture may not be readily apparent on x-rays, thus clinical correlation and further imaging including follow-up CT, MRI, or follow-up x-rays are advised as needed"). Electronically signed by Portillo Rock 10-15-2024 08:[address] 10/15/24 09:10 CT OF THE CHEST WITHOUT IV CONTRAST CLINICAL HISTORY: f/u rib xray, possible pneumothorax COMPARISON STUDY: Chest radiograph October 14, 2024. Right rib series October 15, 2024. CT DOSE: 672.95 mGy.cm TECHNIQUE: Axial images of the chest were obtained without IV contrast. Images were reviewed in the axial, sagittal, and coronal planes. IV contrast was not administered for this examination. Automated exposure control was utilized for the study. A dose lowering technique was utilized adhering to the principles of ALARA. FINDINGS: There is no pneumothorax. Trace right pleural effusion is noted. Subpleural right lower lobe opacity favors atelectasis. The heart is moderately enlarged. There is moderate coronary artery calcification. Small hiatal hernia. Mid to distal esophageal wall thickening is present. There are acute minimally displaced fractures of the anterior right fifth and sixth ribs. No additional acute rib fractures are present. There are no thoracic spine fractures. The gallbladder is surgically absent. IMPRESSION: 1. Acute minimally displaced anterior right fifth and sixth rib fractures. No pneumothorax. Trace right pleural effusion with subpleural opacity suggestive of atelectasis. 2. Cardiomegaly. 3. Hiatal hernia. Mid to distal esophageal wall thickening which may represent esophagitis. ACT 112: Negative or not required by law. Electronically signed by: Galdino Culp M.D. 10/15/2024 10:59 AM
--- NOTE | 2024-10-16 14:22 | Pharmacy Report ---
- Date of Service October 16, 2024 - Pharmacy CVA/TIA Medication Review Medications to Prevent Stroke handout has been added to the patients discharge packet. Antiplatelet(s) * ASA 81 mg + Plavix 75 mg x 21 days followed by single antiplatelet Cholesterol * High intensity statin:atorvastatin 80 mg daily x 21 days then 40 mg daily DVT Prophylaxis * SCD knee Therapeutic Anticoagulation * No history of Afib/Aflutter noted * Zio patch recommended on discharge Type 2 Diabetes * Patient does not have T2DM- A1c 5.4%
[2024-10-17 04:33] VITALS: RESP 18; O2SAT 96
[2024-10-17 06:23] LABS: Basophils # (auto) 0.02 K/uL (0.00-0.20); Basophils % (auto) 0.2 %; Eosinophils # (auto) 0.25 K/uL (0.00-0.50); Eosinophils % (auto) 2.1 %; Hematocrit (blood only) 37.8 % (37.0-47.0); Hemoglobin 12.8 g/dl (12.0-16.0); Immature Granulocytes # (auto) 0.05 K/uL (0.01-0.20); Immature Granulocytes % (auto) 0.4 %; Lymphocytes # (auto) 1.85 K/uL (1.20-3.40); Lymphocytes % (auto) 15.8 %; Mean Corpuscular Hemoglobin 31.5 pg (25.0-34.0); Mean Corpuscular Hgb Conc 33.9 g/dL (32.0-36.0); Mean Corpuscular Volume 93.1 fL (80.0-100.0); Mean Platelet Volume 10.5 fL (9.4-12.4); Monocytes # (auto) 0.96 K/uL (0.11-0.59); Monocytes % (auto) 8.2 %; Neutrophils # (auto) 8.61 K/uL (1.40-6.50); Neutrophils % (auto) 73.3 %; Platelet Count 178 K/uL (130-400); RDW Coefficient of Variation 12.7 % (11.5-14.5); RDW Standard Deviation 43.7 fL (36.4-46.3); Red Blood Count 4.06 M/uL (4.20-5.40); White Blood Count 11.74 K/ul (4.8-10.8)
[2024-10-17 06:33] LABS: BUN Creatinine Ratio 24.3 (10-20); Calcium 8.7 mg/dl (8.6-10.3); Creatinine Clr Calc Pharmacy 60.4 ml/min; Phosphorus 3.4 mg/dl (2.5-4.9); Potassium 4.3 mmol/L (3.5-5.1)
[2024-10-17 08:46] VITALS: TEMP 98.1
[2024-10-17 12:41] VITALS: BP 122/79
[2024-10-17 15:29] VITALS: PULSE 90
--- NOTE | 2024-10-17 15:38 | Discharge Summary ---
Discharge Summary Date of Service October 17, 2024 Principal Dx & Hospital Course #1 = Principal Diagnosis (1) Stroke: Plan Pt is an 84-year-old female who has history of allergic rhinitis, HTN & HLD who presents to ED secondary to right sided weakness and difficulty speaking x 1 day. Her last known well is 930 last evening whenever she went to bed. Pt woke up with RUE weakness and garbled speech. Acute CVA Pt presented with R sided weakness and garbled speech Head CT unremarkable Head and Neck CTA unremarkable Brain MRI noting "Small acute left periventricular white matter stroke" On aspirin, plavix and atorvastatin hemoglobin a1c normal Lipid panel normal Permissive HTN Echo noting no shunt Neurology consulted, appreciate further recs. Noted or stated the following: "...Likely related to atherosclerotic disease...I agree with continuation of aspirin and Plavix for 21 days,, atorvastatin 80 mg this should be followed by a single antiplatelet in addition to atorvastatin 40 mg . Recommend a Zio patch upon discharge Follow-up with neurology as an outpatient..." PT/OT/speech - PT recommending acute rehab placement. speech recommending easy to chew diet Pt discharged with 18 more days of Plavix and aspirin as above to complete a 21 day course, can then continue with aspirin 81mg daily. Continue with Atorvastatin 40mg daily on discharge. Will need Zio patch per neurology recs Please ensure close neurology followup after discharge. Possible UTI UA suggestive of infection urine cx NGTD Empiric IV rocephin, discontinued on discharge based on cx results. Right Rib fractures Possible Pneumothorax XR ribs noting minimally displaced fracture of R 5th and 6th posterior rib Radiology recommending CT chest to rule out pneumothorax CT chest noting hiatal hernia, no pneumothorax Pain control prn-currently getting tylenol with tramadol. Can continue as needed after discharge. Continue with bowel regimen while on narcotics. Hiatal hernia Esophagitis On pantoprazole BID for esophagitis, continue after discharge Hypokalemia replete as needed Hyperglycemia Hgba1c normal Continue other home meds as ordered Notes For Next Care Provider Medication Changes From Visit Aspirin 81mg daily with Plavix 75 mg daily for 18 more days. Then continue with just aspirin 81mg daily Atorvastatin 40mg daily Colace 100 mg p.o. daily Pantoprazole 40 mg p.o. daily tramadol 25mg-50 mg as needed Admission HPI Per Admitting Provider This is an 84-year-old female who has history of allergic rhinitis, HTN & HLD who presents to ED secondary to right sided weakness and difficulty speaking x 1 day. Patient son is at bedside who also helps elicit history. Her last known well is 930 last evening whenever she went to bed. Son states that he stopped over after work around 330 or 4:00 and she was in her normal state of health. Patient states when she woke up this morning she did not feel quite right. She walked out to the kitchen and sat in the chair. She states her right side felt weak. She also felt very shaky. When she went to get up out of her chair she stumbled due to the weakness and fell on the ground. She reports being on the ground for approximately an hour and a half until she was able to reach a phone and call 911. She states she had difficulty calling 911 because of being so shaky. She was also noted to have significant difficulty speaking. She denies ever having similar symptoms in the past. She was most recently seen by PCP on 10/09 for routine follow-up in which her lisinopril was discontinued. Per outpatient records it appears patient was not consistent with taking her medication and her blood pressure at that appointment was 138 systolic. She was encouraged to monitor her blood pressure off of the medication. She was also started on a short prednisone taper for her neck pain. She took the prednisone taper for 3 days. She has been monitoring her blood pressure at home and states it has been around 150 systolic over 100 or greater. at baseline patient lives alone. She is independent for her ADLs. She still drives and works at [employer] 2 days a week for 4 hours at a time. Her son states she is very active. She drinks 1 Seagrams and whiskey at bedtime nightly. She denies any tobacco use. In ED patient was hypertensive. She underwent head CT and head and neck CTAs which were generally unremarkable. She did have a leukocytosis of 19,000 and hypokalemia of 3.3 but otherwise lab work generally unremarkable. Outpt records reviewed. Admission Exam Per Admitting Provider Constitutional: WD/WN, vitals as above, NAD, sitting up in bed, pleasant, conversing easily but garbled speech Head: Normocephalic, Atraumatic Eyes: PERRL, conjunctivae normal, anicteric sclerae ENMT: external ear and nose normal, oropharynx normal Neck: trachea midline, no thyromegaly normal visual inspection Respiratory: normal respiratory effort, lungs clear to auscultation, no wheeze, rales, rhonchi. Normal insp/exp effort, no accessory muscle use Cardiovascular: RRR, 1/6 HITESH noted LUSB, no edema Vessels: no JVD or carotid bruit Chest: normal inspection of chest Abdomen: normal bowel sounds, soft, nontender, no hepatosplenomegaly Musculoskeletal: no cyanosis or clubbing, RUE 3/5, all other ext 5/5 Skin: no rashes, warm and dry normal turgor Neurologic: PERRL, EOMI, accommodation nl, no face palsy, + dysarthria CN's II-XI intact bilaterally and moves all extremities Psychiatric: A+Ox3, euthymic affect Lymphatic: no cervical or axillary lymphadenopathy : deferred Discharge Exam General: Alert, oriented neuro: weakness on the RUE >RLE, garbled speech CV: RRR Resp: Breath sounds clear bilaterally, no increased effort of breathing Abdomen: Soft, nontender Extremities: No edema in lower extremities bilaterally. Updated Medication List Medication Instructions Recorded Confirmed Type fluticasone propionate 50 1 spray intranasal BID 10/14/24 10/14/24 History mcg/actuation nasal spray,suspension loratadine 10 mg tablet (Claritin) 10 mg PO DAILY 10/14/24 10/14/24 History aspirin 81 mg tablet,delayed 81 mg PO QAM #30 tabs 10/17/24 Rx release atorvastatin 40 mg tablet 40 mg PO DAILY #30 tabs 10/17/24 Rx clopidogrel 75 mg tablet 75 mg PO QAM #18 tabs 10/17/24 Rx docusate sodium 100 mg capsule 100 mg PO BID #60 caps 10/17/24 Rx (Colace) pantoprazole 40 mg tablet,delayed 40 mg PO BID #60 tabs 10/17/24 Rx release tramadol 50 mg tablet 25 - 50 mg (0.5 - 1 x 50 mg) PO 10/17/24 Rx Q4H PRN pain #20 tabs Hospital Stay Data Consultations 10/14/24 12:58 ED Decision to Admit Stat 10/14/24 13:02 Consult Neurology Routine Diagnostic Imagining Performed 10/14/24 11:14 CT head/brain wo con Stat CTA head w con [CT angio head w con] Stat CTA neck with con [CT angio neck with con] Stat 10/14/24 12:51 MRI Brain [MR brain wo con] Stat 10/15/24 09:10 CT chest diagnostic wo con Urgent Chest X-Ray 10/14/24 11:14 XR chest 1V portable CLINICAL HISTORY: weakness COMPARISON STUDY: No previous studies for comparison. FINDINGS: Lung volumes are mildly diminished. There is no pneumothorax or pleural effusion. There is cardiomegaly without evidence for pulmonary edema. Minimal right midlung left basilar densities favor atelectasis. IMPRESSION: 1. No acute cardiopulmonary findings. 2. Cardiomegaly. Mild bibasilar ACT 112: Negative or not required by law. Electronically signed by: Galdino Culp M.D. 10/14/2024 11:[address] 10/14/24 11:14 CT OF THE HEAD WITHOUT CONTRAST CLINICAL HISTORY: Right-sided weakness. COMPARISON STUDY: Head CT October 29, 2023. TECHNIQUE: Helical axial images of the head were obtained without IV contrast. Automated exposure control was utilized for the study. A dose lowering technique was utilized adhering to the principles of ALARA. FINDINGS: No acute intracranial hemorrhage, midline shift or mass effect is present. The ventricular system is unremarkable. The basal cisterns are patent. No extra-axial collections are present. There are no findings to suggest acute dural sinus thrombosis or acute territorial infarct. No significant calvarial abnormalities are present. Secretions within the right sphenoid sinus are present. IMPRESSION: No acute intracranial findings. ACT 112: Negative or not required by law. Electronically signed by: Galdino Culp M.D. 10/14/2024 11:47 AM Head CTA 10/14/24 11:14 CTA ANGIOGRAPHY OF THE HEAD CLINICAL HISTORY: Right-sided weakness. COMPARISON STUDY: Head CT October 29, 2023. TECHNIQUE: Helical axial images of the head were obtained following uneventful intravenous administration of 112 cc of Optiray. Sagittal and coronal reconstructions were viewed as well as maximal intensity projections on an independent 3-D workstation. Automated exposure control was utilized for the study. A dose lowering technique was utilized adhering to the principles of ALARA. FINDINGS: No acute intracranial hemorrhage, midline shift or mass effect is present. Ventricular system is normal. Basal cisterns are patent. There is no intracranial aneurysm. The bilateral M1, M2, A1 and A2 segments are patent. There is moderate plaque within the bilateral cavernous carotids without severe stenosis. Left vertebral artery is dominant. No large vessel occlusion is present. There is persistence of the left posterior cerebral artery. IMPRESSION: No large vessel occlusion. No intracranial aneurysm. ACT 112: Negative or not required by law. Electronically signed by: Galdino Culp M.D. 10/14/2024 11:51 AM Neck CTA 10/14/24 11:14 CT angio neck with con CLINICAL HISTORY: R sided weakness. COMPARISON STUDY: None TECHNIQUE: Following the IV administration of 112 cc of Optiray, CT angiogram of the neck was performed from the aortic arch to the skull base. Images are reviewed in the axial, sagittal, and coronal planes. 3-D MIPS images are created and assessed. IV contrast was administered without complication. All measurements were calculated based on NASCET criteria. A dose lowering technique was utilized adhering to the principles of ALARA. CT DOSE: 1145.07 mGy.cm FINDINGS: There is no evidence of hemodynamically significant stenosis. Calcified plaques are present at the carotid bifurcations bilaterally. There is no occlusive disease or dissection. The right vertebral artery is diminutive with a dominant left vertebral artery. IMPRESSION: No hemodynamically significant stenosis, occlusive disease, or dis section. ACT 112: Negative or not required by law. The above report was generated using voice recognition software. It may contain grammatical, syntax or spelling errors. Electronically signed by: Magy Chavez M.D. 10/14/2024 12:14 PM Brain MRI 10/14/24 12:51 MR brain wo con CLINICAL HISTORY: stroke like symptoms slurred speech COMPARISON STUDY: None TECHNIQUE: Multiplanar MRI of the brain was performed using various pulse sequences without gadolinium enhancement. FINDINGS: There is an area of very strict diffusion in the left periventricular white matter consistent with an acute stroke. The lesion measures approximately 12 mm in size. It is not associated with hemorrhage or mass effect. No additional acute findings are noted. There is no intra-axial or extra-axial fluid collection, hemorrhage, or mass. The ventricles and sulci demonstrate this senescent atrophy. There are multiple T2 and FLAIR hyperintense white matter lesions most commonly associated with small vessel insufficiency. There are normal flow voids at the skull base. There is no fluid in the mastoid air cells. IMPRESSION: Small acute left periventricular white matter stroke. No evidence of mass effect or hemorrhage. ACT 112: Negative or not required by law. Electronically signed by: Magy Chavez M.D. 10/14/2024 2:12 PM Ribs X-Ray 10/15/24 07:00 EXAM: XR ribs RT min 2V CLINICAL HISTORY: fall, pain TECHNIQUE: X-ray images of the unilateral right ribs were obtained in [PA/AP, lateral, and oblique projections]. COMPARISON: No previous studies are available for comparison. FINDINGS: Minimally displaced fracture of right 5th and 6th rib posterior Hypertransrradiancy seen at the right upper/ apical lung zone with the possible visceral pleural line predominantly seen on oblique view which could be pneumothorax, CT chest is advised for further evaluation No abnormal rib lucencies or sclerotic lesions. Chest Wall: The soft tissues of the chest wall appear unremarkable. No evidence of subcutaneous emphysema or soft tissue masses. Lungs and Pleura: The lung springer are clear with no evidence of pneumothorax or pleural effusion. No pulmonary infiltrates or masses were identified. Additional Findings: visualized portions of the spine, clavicles, and shoulders are unremarkable. Spondylodegenrative changes of the visualized vertebrae. Osteoarthritic changes of the right shoulder. Surgical clips are noted in the right hypochondrium. IMPRESSION: 1. Minimally displaced fracture of right 5th and 6th rib posterior 2. Hypertransrradiancy seen at the right upper/ apical lung zone with the possible visceral pleural line predominantly seen on oblique view which could be pneumothorax, CT chest is advised for further evaluation (Disclaimer: "A subtle bone abnormality or fracture may not be readily apparent on x-rays, thus clinical correlation and further imaging including follow-up CT, MRI, or follow-up x-rays are advised as needed"). Electronically signed by Portillo Rock 10-15-2024 08:[address] 10/15/24 09:10 CT OF THE CHEST WITHOUT IV CONTRAST CLINICAL HISTORY: f/u rib xray, possible pneumothorax COMPARISON STUDY: Chest radiograph October 14, 2024. Right rib series October 15, 2024. CT DOSE: 672.95 mGy.cm TECHNIQUE: Axial images of the chest were obtained without IV contrast. Images were reviewed in the axial, sagittal, and coronal planes. IV contrast was not administered for this examination. Automated exposure control was utilized for the study. A dose lowering technique was utilized adhering to the principles of ALARA. FINDINGS: There is no pneumothorax. Trace right pleural effusion is noted. Subpleural right lower lobe opacity favors atelectasis. The heart is moderately enlarged. There is moderate coronary artery calcification. Small hiatal hernia. Mid to distal esophageal wall thickening is present. There are acute minimally displaced fractures of the anterior right fifth and sixth ribs. No additional acute rib fractures are present. There are no thoracic spine fractures. The gallbladder is surgically absent. IMPRESSION: 1. Acute minimally displaced anterior right fifth and sixth rib fractures. No pneumothorax. Trace right pleural effusion with subpleural opacity suggestive of atelectasis. 2. Cardiomegaly. 3. Hiatal hernia. Mid to distal esophageal wall thickening which may represent esophagitis. ACT 112: Negative or not required by law. Electronically signed by: Galdino Culp M.D. 10/15/2024 10:59 AM Pending Results Patient Have Any Pending Studies at Discharge: No Discharge Instructions Given to Patient (Per Discharging Provider) Lauren, You are being discharged to acute rehab after being treated after you had a stroke. Please continue with the medications aspirin and Plavix for an additional 18 more days. Then continue with only the aspirin 81mg daily after that. Please continue with the medication Atorvastatin daily. Per Neurology, you will need a heart monitor after discharge. Your primary care provider can help with ordering that for you as needed. Please keep close followup with Neurology after discharge. You also had some rib fractures. Please continue with Tylenol and as needed tramadol to help. Continue with the stool softener to help with your bowel movements. Your urine culture did not grow bacteria so we do not believe you had a urinary tract infection. Treatment for that was discontinued. Please do try to increase your oral intake. Please keep close follow up with your primary care provider and Neurology after discharge. Please do not hesitate to come back to the emergency room if your symptoms worsen or return. It was a pleasure taking care of you while you were here. Total Time Total Time Spent Total Time Spent (In Minutes): 60
== END 2024-10-17 16:08 | DRG 65 ==
LOC: ED 10:41 → 2E 13:02 → SUATTDRO 13:02 → 2E 14:43

== ENCOUNTER 2025-06-23 15:50 | Observation (INO) ==
[2025-06-23] MEDS: OPTIRAY 320 125ml IV ONE (16:06)
--- NOTE | 2025-06-23 16:26 | CT Scan Report ---
Clinical History: Possible stroke Technique: Axial computed tomography images were obtained of the brain without intravenous contrast. Findings: There is diffuse cerebral atrophy, within expected limits for the patient's age. Areas of decreased attenuation are seen within the periventricular white matter, likely representing chronic small vessel ischemic disease. There is an old infarct of the right lopez radiata. There is no definite sign of acute infarction. No intracranial hemorrhage is evident. No definite mass lesion is seen on this noncontrast examination. There is no midline shift or other form of herniation. No hydrocephalus is seen. No fracture is identified. There is fluid in the right sphenoid sinus. The mastoid air cells appear clear. Impression: 1. Cerebral atrophy, old infarct, and chronic small vessel ischemic disease 2. Sphenoid sinusitis These findings were discussed with Dr. Traore at 4:24 PM on 06/23/2025 Electronically signed by Ralph Holman 06-23-2025 4:26 PM
--- NOTE | 2025-06-23 16:27 | CT Scan Report ---
Clinical History: Possible stroke Technique: Axial computed tomography images were obtained of the brain after the administration of intravenous contrast according to the CT angiogram protocol Findings: There is calcified plaque within the cavernous and supraclinoid segments of the internal carotid arteries bilaterally, without stenosis No definite stenosis or aneurysm is seen of the anterior, middle, or posterior cerebral artery circulations. The visualized vertebral arteries and the basilar artery appear unremarkable Impression: No definite stenosis or aneurysm of the intracranial arteries These findings were discussed with Dr. Traore at 4:24 PM on 06/23/2025 Electronically signed by Ralph Holman 06-23-2025 4:27 PM
--- NOTE | 2025-06-23 16:29 | CT Scan Report ---
Clinical history: Possible stroke Technique: Axial computed tomography images were obtained of the neck after the administration of intravenous contrast according to the CT angiogram protocol Findings: No stenosis is seen in the common carotid arteries bilaterally. There is plaque within the carotid bulbs bilaterally, without significant stenosis. The remainder of the internal carotid arteries appear patent bilaterally. No stenosis of the external carotid arteries is seen The vertebral arteries are patent bilaterally with no significant stenosis seen. The left vertebral artery is dominant. 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 There is a small nodule in the right thyroid lobe Impression: Bilateral carotid atherosclerosis, without significant stenosis Electronically signed by Ralph Holman 06-23-2025 4:29 PM
--- NOTE | 2025-06-23 16:42 | XRay Report ---
Chest radiograph, one view History: Stroke alert Comparison: None Findings: Single AP view of the chest performed. No focal consolidation or pleural effusion. No pneumothorax. The cardiomediastinal silhouette is within normal limits. Normal pulmonary vascularity. No evidence for lymphadenopathy. No visualized bony or soft tissue abnormality. Impression: Normal chest radiograph Electronically signed by Santos Courtney 06-23-2025 4:42 PM
[2025-06-23 16:44] LABS: Appearance Urine Clear (Clear); Glucose Urine UA Negative (Negative)
[2025-06-23 16:49] LABS: Hematocrit (blood only) 34.0 % (37.0-47.0); Hemoglobin 11.6 g/dl (12.0-16.0); Immature Granulocytes # (auto) 0.04 K/uL (0.01-0.20); Immature Granulocytes % (auto) 0.4 %; Mean Corpuscular Hemoglobin 31.0 pg (25.0-34.0); Mean Corpuscular Volume 90.9 fL (80.0-100.0); Platelet Count 170 K/uL (130-400); RDW Standard Deviation 43.4 fL (36.4-46.3); Red Blood Count 3.74 M/uL (4.20-5.40); White Blood Count 8.89 K/ul (4.8-10.8)
--- NOTE | 2025-06-23 17:05 | Emergency Department Note ---
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 Patient had seen her primary care provider earlier today for her dizziness and ended outpatient blood work performed. Patient reports returning to her home and had lunch and then started to feel severely dizzy and felt unable to stand and walk. She called her son who then called EMS to the patient's home. I discussed the case with EMS who also reported slurred speech where it was unclear whether this was a new or worse than her baseline and so stroke alert was activated in the field given unclear circumstances. Upon arrival Emergency Department the patient confirms that her symptoms been ongoing for the past week and related to dizziness and her slurred speech is normal for her. Thus, given the patient's symptoms have been ongoing for the past week she is not a TNK candidate. On evaluation the patient no distress, afebrile blood pressure 160s/80s and heart in the 90s and vital signs otherwise stable. She appears clinically dry. Speech is relatively fluent despite not having her dentures in. She exhibits no focal extremity weakness. Intact finger-nose. EKG without overt acute ischemia. CXR negative for acute cardiopulmonary process per my personal preliminary review/interpretation. WBC and platelets within normal limits. H/H approximate to prior values. Chemistry without metabolic acidosis. BUN/creatinine 25 consistent with patient's clinical dry appearance. Electrolytes and LFTs unremarkable. High- sensitivity troponin 3.5, within normal limits. TSH within normal limits. UA with bacteria however epithelial cells present and patient denies urinary symptoms. CT of the head and CT of the head and neck were performed and were negative for ICH, ischemia or severe narrowing occlusion of large vessels. Incidental sphenoid sinusitis is described though does not correlate with the patient's symptoms. Given no large vessel occlusion telestroke consultation was deferred. The patient was treated with IV hydration with 1 L normal saline given patient's clinically dry appearance. Subsequent ambulatory trial was attempted however the patient was unable to ambulate without significant dizziness. Thus, patient was referred to the hospitalist service for further management. Case was discussed with Dr. Hansen [facility] hospitalist, who will evaluate the patient for admission. Further management per admitting team. Triage Nursing notes reviewed and agree them. Prior/external medical records reviewed Vital Signs: reviewed Differential diagnosis: Benign positional vertigo, dehydration, hypovolemia, anemia, tumor, infection, hypoglycemia, electrolyte abnormalities, cardiac sources, intracerebral event, toxicologic, neurologic, as well as other pathologies. ER treatment provided: See below. Diagnostics interpreted by me: ECG: Sinus rhythm, 88 bpm, no ectopy, first degree AV block, no overt ST elevation or depression, QTc 442, QRS 80. Cardiac Monitoring: An order for continuous cardiac monitoring was placed and demonstrated Sinus rhythm, 88 bpm, no ectopy. Laboratory studies: See below Imaging studies: See below Consultation(s): ABDOUL Velazquez hospitalist HPI: Per MDM. ROS: See above HPI for pertinent positives & negatives. A total of 10 systems reviewed and were otherwise negative. VITALS:See Below PHYSICAL EXAMINATION: GENERAL: Awake, alert, fatigued-appearing, in no distress HENT: Normocephalic, atraumatic. Oropharynx with dry mucous membranes and otherwise unremarkable. EYES: Normal conjunctiva. Sclera non-icteric. EOMI. No nystamgus. PEARRL. NECK: Supple. No nuchal rigidity. FROM. No JVD. RESPIRATORY: Clear to auscultation. CARDIAC: Regular rate, normal rhythm. Extremities warm and well perfused. Pulses equal. ABDOMEN: Soft, non-distended. No tenderness to palpation. No rebound or guarding. No masses. MUSCULOSKELETAL: Chest examination reveals no tenderness. The back is symmetrical on inspection without obvious abnormality. There is no CVA tenderness to palpation. No joint edema. LOWER EXTREMITIES: Calves are equal size bilaterally and non-tender. No edema. No discoloration. NEURO: Cranial nerves II-XII grossly intact. 5/5 strength and SILT x 4 extremities. Intact [id number]. SKIN: No rash or jaundice noted. Ap Traore MD Past Med/Surg History Problem List (Updated 06/24/25 @ 21:03 by Ap Traore MD) Vitamin B12 deficiency Dizziness (Acute) Restless leg syndrome Arthritis of right shoulder Anemia Right shoulder pain Orthostasis History of CVA (cerebrovascular accident) (Acute) Presbyacusis Allergic rhinitis HTN (hypertension) (Acute) Medical History (Updated 06/24/25 @ 21:03 by Ap Traore MD) Vitamin D deficiency senior care resident resident at [facility] [place] Hypercholesteremia as per [facility] GERD (gastroesophageal reflux disease) as per [facility] Dry eyes as per [facility] Vitamin D deficiency as per EMR Presbyacusis as per EMR Orthostasis as per EMR Hypertension as per EMR History of CVA (cerebrovascular accident) 09/2024 - [facility] - as per EMR Anemia as per EMR Ventral hernia Malignant neoplasm of other specified sites of body of uterus (10/27/14) "Postmenopausal vaginal bleeding 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 Status post total abdominal hysterectomy bilateral salpingo-oophorectomy and lymph node dissection 12/03/2014 stage [id number] Status post completion of radiation therapy utilizing HDR therapy 3 HDR treatments were given 700 cGy each for a total 2100 cGy" On 01/26/15 17:36 Sofia Martinez wrote "Postmenopausal vaginal bleeding 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 Status post total abdominal hysterectomy bilateral salpingo-oophorectomy and lymph node dissection 12/03/2014 stage [id number]" Surgical History Hx of cataract extraction right History of hernia repair History of total abdominal hysterectomy S/P laparoscopic cholecystectomy Family History Other No significant family history Social History Smoking Status: Never smoker Second Hand Exposure: No; Do You Dip or Chew Tobacco: No; Hx Alcohol Use: No Hx Substance Use: No Preferred Language: Georgian Communication Ability: Effective Communication Ability Comment: [facility] Visual Impairment: No Limitations Hearing Ability: Use of Hearing Aid Wash [employer] Cooler Operator Required: No Beliefs That Will Affect Care: None Current Living Situation: Alone Current Living Situation Comment: [facility] current occupational status: retired How many Children do You have: 3 Feels Safe at Home: Yes Childhood Exposure to Second-Hand Smoke: No Diet: regular Diet Comment: meals on wheels caffeine: Yes during the past year weight has: remained stable Dental Care, Regularly: No Physical Activity Frequency: Daily Physical Activity Frequency Comment: walking daily Seatbelt Use: always Sunscreen Use: Yes Assistive Devices: Hearing Aid - Bilateral and Walker Allergies Allergies Allergy/AdvReac Type Severity Reaction Status Date / Time No Known Allergies Allergy Verified 06/23/25 18:38 Home Meds Home Medications Medication Instructions Recorded Confirmed acetaminophen 500 mg tablet 500 mg PO Q8 PRN Pain 06/23/25 06/23/25 atorvastatin 40 mg tablet 40 mg PO QAM 06/23/25 06/23/25 Previous Rx's Medication Instructions Recorded aspirin 81 mg tablet,delayed 81 mg PO QAM #30 tabs 10/17/24 release Hospital Bed Home[facility] ([facility] ea 03/01/25 Bed) ropinirole 0.5 mg tablet 0.5 mg PO 1700 #30 tabs 03/24/25 Results & Data (ED) Vital Signs Vital Signs - 24 hr 06/23/25 16:20 06/23/25 16:29 06/23/25 16:30 Pulse Rate 95 H 83 Pulse Rate [Apical] Pulse Rate from SpO2 Sensor Pulse Rhythm Regular Regular Pulse Rhythm [Apical] Pulse Strength Normal Pulse Strength [Apical] Respiratory Rate 22 14 Respiratory Effort / Characteristics Non-Labored Spontaneous Respiratory Depth Normal Respiratory Pattern Regular Blood Pressure 169/81 H Blood Pressure [Left Arm] Blood Pressure Mean 110 Blood Pressure Mean [Left Arm] Blood Pressure Position Sitting Blood Pressure Position [Left Arm] Pulse Oximetry 98 99 99 Oxygen Delivery Method Room Air Room Air Room Air Sepsis Recent Fever Within 48 Hours No Sepsis New/Unexplained Change in Mental Status N/A Sepsis Action Taken by Nursing No Action Required 06/23/25 16:30 06/23/25 16:36 06/23/25 17:09 Pulse Rate 82 Pulse Rate [Apical] 84 Pulse Rate from SpO2 Sensor Pulse Rhythm Pulse Rhythm [Apical] Regular Pulse Strength Pulse Strength [Apical] Normal Respiratory Rate 22 Respiratory Effort / Characteristics Non-Labored Spontaneous Respiratory Depth Normal Respiratory Pattern Regular Blood Pressure Blood Pressure [Left Arm] 141/100 H Blood Pressure Mean Blood Pressure Mean [Left Arm] 113 Blood Pressure Position Blood Pressure Position [Left Arm] Sitting Pulse Oximetry 99 Oxygen Delivery Method Room Air Room Air Sepsis Recent Fever Within 48 Hours Sepsis New/Unexplained Change in Mental Status Sepsis Action Taken by Nursing 06/23/25 18:00 06/23/25 18:19 06/23/25 18:42 Pulse Rate 73 Pulse Rate [Apical] 69 Pulse Rate from SpO2 Sensor 71 Pulse Rhythm Pulse Rhythm [Apical] Regular Pulse Strength Pulse Strength [Apical] Normal Respiratory Rate 17 20 15 Respiratory Effort / Characteristics Non-Labored Spontaneous Respiratory Depth Normal Respiratory Pattern Blood Pressure Blood Pressure [Left Arm] 164/83 H 148/77 H Blood Pressure Mean Blood Pressure Mean [Left Arm] 110 100 Blood Pressure Position Blood Pressure Position [Left Arm] Lying Pulse Oximetry 99 100 96 Oxygen Delivery Method Room Air Room Air Room Air Sepsis Recent Fever Within 48 Hours Sepsis New/Unexplained Change in Mental Status Sepsis Action Taken by Nursing Laboratory Data Attestation: I reviewed the patient's lab results. 06/24/25 05:58 06/24/25 05:58 Lab Results 06/23/25 06/23/25 Range/Units 16:25 16:30 WBC 8.89 (4.8-10.8) K/ul RBC 3.74 L (4.20-5.40) M/uL Hgb 11.6 L (12.0-16.0) g/dl POC Hgb 11.2 L (12.0-16.0) g/dl Hct 34.0 L (37.0-47.0) % POC Hct 33 L (37-47) % MCV 90.9 (80.0-100.0) fL MCH 31.0 (25.0-34.0) pg MCHC 34.1 (32.0-36.0) g/dL RDW Std Deviation 43.4 (36.4-46.3) fL RDW Coeff of Francisco Javier 13.1 (11.5-14.5) % Plt Count 170 (130-400) K/uL MPV 10.7 (9.4-12.4) fL Immature Gran % (Auto) 0.4 % Neut % (Auto) 80.5 % Lymph % (Auto) 13.2 % [place] % (Auto) 5.7 % Eos % (Auto) 0.1 % Baso % (Auto) 0.1 % Neut # (Auto) 7.15 H (1.40-6.50) K/uL Lymph # (Auto) 1.17 L (1.20-3.40) K/uL [place] # (Auto) 0.51 (0.11-0.59) K/uL Eos # (Auto) 0.01 (0.00-0.50) K/uL Baso # (Auto) 0.01 (0.00-0.20) K/uL Immature Gran # (Auto) 0.04 (0.01-0.20) K/uL ESR 9 (0-30) mm/hr PT 10.2 (9.0-12.0) Seconds INR 1.0 (0.9-1.1) APTT 23 (21-31) Seconds PTT Ratio 0.8 POC Sodium 137 (135-144) mmol/L Sodium 135 L (136-145) mmol/L POC Potassium 3.9 (3.3-5.0) mmol/L Potassium 3.8 (3.5-5.1) mmol/L POC Chloride 103 (101-112) mmol/L Chloride 104 (98-107) mmol/L Carbon Dioxide 24 (21-32) mmol/L POC Total CO2 23 L (24-31) mmol/L Anion Gap 7 (3-11) POC Anion Gap 17.0 (16-25) mmol/L POC BUN 19 H (7-18) mg/dl BUN 19 (6-23) mg/dl Creatinine 0.75 (0.6-1.2) mg/dl POC Creatinine 0.8 (0.6-1.3) mg/dl Est Cr Clr Drug Dosing 53.1 ml/min eGFR 77.97 BUN/Creatinine Ratio 25.3 H (10-20) Glucose 122 H (70-99(Fasting)) mg/dl POC Glucose (other) 119 H (70-99) mg/dl Calcium 8.8 (8.6-10.3) mg/dl POC Ioniz Calcium Paulo 1.17 (1.12-1.32) mmol/l Phosphorus 2.5 (2.5-4.9) mg/dl Magnesium 1.8 (1.7-2.4) mg/dl Total Bilirubin 0.5 (0.2-1.0) mg/dl AST 13 (13-39) U/L ALT 11 (7-52) U/L Alkaline Phosphatase 64 (34-104) U/L Troponin I High Sens 3.5 (0-14) pg/ml C-Reactive Protein < 0.50 (0-0.5) mg/dl Total Protein 6.1 (6.0-8.3) gm/dl Albumin 3.3 L (3.4-5.0) gm/dl Globulin 2.8 (2.5-4.0) gm/dl Albumin/Globulin Ratio 1.2 (0.9-2) Folate 14.95 (>5.38) ng/ml TSH 0.778 (0.300-4.500) uIu/ml Urine Color Yellow Urine Appearance Clear (Clear) Urine pH 7.5 (4.5-7.5) Ur Specific [place] 1.014 (1.000-1.030) Urine Protein Negative (Negative) Urine Glucose (UA) Negative (Negative) Urine Ketones Negative (Negative) Urine Blood Negative (Negative) Urine Nitrite Negative (Negative) Urine Bilirubin Negative (Negative) Urine Urobilinogen Negative (Negative) Ur Leukocyte Esterase Negative (Negative) Urine Comment Administered Medications Acetaminophen (Acetaminophen 500 Mg Tab) 1,000 mg PO Q8 PRN PRN Reason: Pain Stop: 07/24/25 08:59 Last Admin: 06/24/25 20:42 Dose: 1,000 mg Documented By: Admin: 06/24/25 08:30 Dose: 1,000 mg Documented By: FAZAL Aspirin (Aspirin 81 Mg Ectab) 81 mg PO [facility] Stop: 07/24/25 08:59 Last Admin: 06/24/25 08:28 Dose: 81 mg Documented By: FAZAL Atorvastatin Calcium (Atorvastatin 40 Mg Tab) 40 mg PO [facility] Stop: 07/24/25 08:59 Last Admin: 06/24/25 08:28 Dose: 40 mg Documented By: FAZAL Cyanocobalamin (Cyanocobalamin 1000 Mcg/Ml Vial) 1,000 mcg IM [facility] Stop: 06/26/25 09:01 Last Admin: 06/24/25 08:29 Dose: 1,000 mcg Documented By: FAZAL Diclofenac Sodium (Diclofenac Sod 1% Gel 100 Gm Tube) 2 gm EXT BID MARIE; Protocol Stop: 07/23/25 22:44 Last Admin: 06/24/25 20:43 Dose: 2 gm Documented By: Admin: 06/24/25 08:29 Dose: 2 gm Documented By: Admin: 06/23/25 23:44 Dose: 2 gm Documented By: LEXI Melatonin (Melatonin 3 Mg Tab) 3 mg PO HS PRN PRN Reason: Sleep Stop: 07/23/25 22:44 Last Admin: 06/24/25 20:43 Dose: 3 mg Documented By: Admin: 06/23/25 23:44 Dose: 3 mg Documented By: LEXI Ropinirole HCl (Ropinirole Hcl 0.25 Mg Tablet) 0.5 mg PO HS MARIE Stop: 07/24/25 01:44 Last Admin: 06/24/25 20:44 Dose: 0.5 mg Documented By: Admin: 06/24/25 03:31 Dose: 0.5 mg Documented By: LEXI Vitamin D (Cholecalciferol 125 Mcg (5,000 Units) Tab) 125 mcg PO QAM MARIE Stop: 07/24/25 08:59 Last Admin: 06/24/25 08:28 Dose: 125 mcg Documented By: FAZAL Discontinued Medications Acetaminophen (Acetaminophen 500 Mg Tab) 1,000 mg PO NOW STA Stop: 06/23/25 22:46 Last Admin: 06/23/25 23:43 Dose: 1,000 mg Documented By: LEXI Sodium Chloride (Nss) 500 mls @ 999 mls/hr IV .Q31M ONE Stop: 06/23/25 16:30 Last Infusion: 06/23/25 18:07 Dose: Infused Documented By: trino Admin: 06/23/25 17:07 Dose: 999 mls/hr Documented By: trino Sodium Chloride (Nss) 500 mls @ 999 mls/hr IV .Q31M ONE Stop: 06/23/25 17:32 Last Infusion: 06/23/25 19:30 Dose: Infused Documented By: Admin: 06/23/25 18:07 Dose: 999 mls/hr Documented By: trino Lactated Ringer's (Lr) 1,000 mls @ 100 mls/hr IV .Q10H MARIE Stop: 06/24/25 08:44 Last Infusion: 06/24/25 09:43 Dose: Infused Documented By: Admin: 06/23/25 23:43 Dose: 100 mls/hr Documented By: LEXI Ioversol (Optiray 320 125ml) 115 ml IV ONCE ONE Stop: 06/23/25 16:07 Last Admin: 06/23/25 16:06 Dose: 115 ml Documented By: KYAW Imaging Data Radiologist's Impression: Chest X-Ray 06/23/25 15:55 Chest radiograph, one view History: Stroke alert Comparison: None Findings: Single AP view of the chest performed. No focal consolidation or pleural effusion. No pneumothorax. The cardiomediastinal silhouette is within normal limits. Normal pulmonary vascularity. No evidence for lymphadenopathy. No visualized bony or soft tissue abnormality. Impression: Normal chest radiograph Electronically signed by Santos Courtney 06-23-2025 4:[address] 06/23/25 15:59 Clinical History: Possible stroke Technique: Axial computed tomography images were obtained of the brain without intravenous contrast. Findings: There is diffuse cerebral atrophy, within expected limits for the patient's age. Areas of decreased attenuation are seen within the periventricular white matter, likely representing chronic small vessel ischemic disease. There is an old infarct of the right lopez radiata. There is no definite sign of acute infarction. No intracranial hemorrhage is evident. No definite mass lesion is seen on this noncontrast examination. There is no midline shift or other form of herniation. No hydrocephalus is seen. No fracture is identified. There is fluid in the right sphenoid sinus. The mastoid air cells appear clear. Impression: 1. Cerebral atrophy, old infarct, and chronic small vessel ischemic disease 2. Sphenoid sinusitis These findings were discussed with Dr. Traore at 4:24 PM on 06/23/2025 Electronically signed by Ralph Holman 06-23-2025 4:26 PM Head CTA 06/23/25 15:59 Clinical History: Possible stroke Technique: Axial computed tomography images were obtained of the brain after the administration of intravenous contrast according to the CT angiogram protocol Findings: There is calcified plaque within the cavernous and supraclinoid segments of the internal carotid arteries bilaterally, without stenosis No definite stenosis or aneurysm is seen of the anterior, middle, or posterior cerebral artery circulations. The visualized vertebral arteries and the basilar artery appear unremarkable Impression: No definite stenosis or aneurysm of the intracranial arteries These findings were discussed with Dr. Traore at 4:24 PM on 06/23/2025 Electronically signed by Ralph Holman 06-23-2025 4:27 PM Neck CTA 06/23/25 15:59 Clinical history: Possible stroke Technique: Axial computed tomography images were obtained of the neck after the administration of intravenous contrast according to the CT angiogram protocol Findings: No stenosis is seen in the common carotid arteries bilaterally. There is plaque within the carotid bulbs bilaterally, without significant stenosis. The remainder of the internal carotid arteries appear patent bilaterally. No stenosis of the external carotid arteries is seen The vertebral arteries are patent bilaterally with no significant stenosis seen. The left vertebral artery is dominant. 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 There is a small nodule in the right thyroid lobe Impression: Bilateral carotid atherosclerosis, without significant stenosis Electronically signed by Ralph Holman 06-23-2025 4:29 PM Discharge Plan Visit Data Chief Complaint: Stroke Alert ED Provider: Ap Traore Discharge Problem: Dizziness, History of CVA (cerebrovascular accident), HTN (hypertension) Patient Disposition: Admitted As Inpatient Condition: Fair Discharge Instructions Interventions: ED Discharge Assessment Last Done: 06/23/25 22:03 Discharge Problem: HTN (hypertension) Qualifiers: Hypertension type: unspecified Qualified Code(s): I10 - Essential (primary) hypertension
[2025-06-23 17:06] LABS: Alanine Aminotransferase 11 U/L (7-52); Albumin Globulin Ratio 1.2 (0.9-2); Albumin Level 3.3 gm/dl (3.4-5.0); Alkaline Phosphatase 64 U/L (34-104); Anion Gap 7 (3-11); Bilirubin,Total 0.5 mg/dl (0.2-1.0); Blood Urea Nitrogen 19 mg/dl (6-23); Calcium 8.8 mg/dl (8.6-10.3); Carbon Dioxide 24 mmol/L (21-32); Chloride 104 mmol/L (98-107); Creatinine Clr Calc Pharmacy 53.1 ml/min; Globulin 2.8 gm/dl (2.5-4.0); Glucose 122 mg/dl (70-99(Fasting)); Magnesium 1.8 mg/dl (1.7-2.4); Potassium 3.8 mmol/L (3.5-5.1); Sodium 135 mmol/L (136-145); Total Protein 6.1 gm/dl (6.0-8.3)
[2025-06-23] MEDS: SODIUM CHLORIDE 0.9% 500 ML IV ONE ×2 (17:07→18:07)
[2025-06-23 17:16] LABS: INR 1.0 (0.9-1.1); Partial Thromboplastin Time 23 Seconds (21-31); Prothrombin Time 10.2 Seconds (9.0-12.0)
[2025-06-23 17:22] LABS: Thyroid Stimulating Hormone 0.778 uIu/ml (0.300-4.500)
--- NOTE | 2025-06-23 19:53 | History & Physical Report ---
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 Workup thus far largely unremarkable including stroke imaging - CT head, CTA Head and Neck which were unremarkable. #Dizziness - etiology unclear. Patient endorses a positional component - ?orthostasis. Also new mild anemia but unlikely this is contributing -Observation to medical with telemetry -Check orthostatic vital signs -Check ESR and CRP - unlikely something like GCA, however, patient endorses neck/shoulder pain as well as blurring of vision -Gentle IVF - LR at 100mL/hr x 1L -PT/OT evaluations #Vitamin D deficiency - noted on outpatient labs. 25-hydroxy vitamin D level = 26.8 -Inititiate Vitamin D 125mcg po daily #Vitamin B12 deficiency - B12 level very low at 71. She does have a new anemia which is normocytic -Check Folate -Initiate Vitamin B12 1000IU IM daily. Patient can continue with PO suppl ementation on discharge #Restless leg syndrome - patient currently taking Ropinirole. Reports since starting this medication she has been experiencing urinary incontinence and does not wish to take this medication anymore. -Will hold ropinirole -B12 and Vitamin D supplementation as above #Hyperlipidemia -Continue Atorvastatin 40mg po daily #Prior CVA -Continue ASA and Atorvastatin History of Present Illness Chief Complaint: dizziness / lightheadedness Primary Care Provider: DO Lauren Chavez Mindy is an 85yo female with history of GERD, HTN, HLP presenting with episodes of dizziness. On Saturday patient began having episodes of dizziness and lightheadedness. She does not describe vertiginous symptoms but more the sensation that she is going to pass out. Episodes occur occasionally with positional changes - sitting to standing or with prolonged standing but today she had the feeling while she was sitting. Patient was seen in her PCPs office with this complaint on 06/21/25 as well as complaining of neck and shoulder pain. She was administered trigger point injections x 5. She felt ok throughout the day on 06/22. Today she had several episodes of dizziness again so she was seen again in her PCPs office. She had an EKG with no changes. Also sent off labs including CBC, BMP, LFTs all within normal limits. She was found to have a low Vitamin D level as well as a low B12 level. Patient returned home from her appointment today and felt dizzy again so her son called the ambulance and she came to the ER. Patient states that when she gets the episodes she has a hard time focusing her eyes. She denies chest pain, palpitations, cough, SOB, fever, chills, headache, recent illness or vaccinations, nausea, vomiting or diarrhea. She is eating well and urinating without difficulty - no dysuria. She has a baseline right sided motor deficit and speech deficit from a prior stroke - unchanged. In the ER she is afebrile, mildly hypertensive, otherwise HD stable. No arrhythmia noted on monitor. ER Course: NSS x 1L Allergies Allergy/AdvReac Type Severity Reaction Status Date / Time No Known Allergies Allergy Verified 06/23/25 18:38 Home Medications Medication Instructions Recorded Confirmed Type aspirin 81 mg tablet,delayed 81 mg PO QAM #30 tabs 10/17/24 06/23/25 Rx release Hospital Bed Home[facility] ([facility] ea 03/01/25 06/23/25 Rx Bed) ropinirole 0.5 mg tablet 0.5 mg PO 1700 #30 tabs 03/24/25 06/23/25 Rx acetaminophen 500 mg tablet 500 mg PO Q8 PRN Pain 06/23/25 06/23/25 History atorvastatin 40 mg tablet 40 mg PO QAM 06/23/25 06/23/25 History Past Med/Surg History Problem List (Updated 06/23/25 @ 20:57 by Maxine Hansen DO) Vitamin B12 deficiency Dizziness Restless leg syndrome Arthritis of right shoulder Anemia Right shoulder pain Orthostasis History of CVA (cerebrovascular accident) Presbyacusis Allergic rhinitis HTN (hypertension) Medical History (Updated 06/23/25 @ 20:57 by Maxine aHnsen DO) Vitamin D deficiency retirement resident resident at [facility] [place] Hypercholesteremia as per [facility] GERD (gastroesophageal reflux disease) as per [facility] [place] Dry eyes as per [facility] Living [facility] Vitamin D deficiency as per EMR Presbyacusis as per EMR Orthostasis as per EMR Hypertension as per EMR History of CVA (cerebrovascular accident) 09/2024 - [facility] - as per EMR Anemia as per EMR Ventral hernia Malignant neoplasm of other specified sites of body of uterus (10/27/14) "Postmenopausal vaginal bleeding 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 Status post total abdominal hysterectomy bilateral salpingo-oophorectomy and lymph node dissection 12/03/2014 stage [id number] Status post completion of radiation therapy utilizing HDR therapy 3 HDR treatments were given 700 cGy each for a total 2100 cGy" On 01/26/15 17:36 Sofia Martinez wrote "Postmenopausal vaginal bleeding 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 Status post total abdominal hysterectomy bilateral salpingo-oophorectomy and lymph node dissection 12/03/2014 stage [id number]" Surgical History Hx of cataract extraction right History of hernia repair History of total abdominal hysterectomy S/P laparoscopic cholecystectomy Family History Other No significant family history Social History Smoking Status: Never smoker Do You Dip or Chew Tobacco: No; Hx Alcohol Use: No Hx Substance Use: No (unknown hx) Preferred Language: Cymro Communication Ability: Effective Communication Ability Comment: [facility] [place] Visual Impairment: No Limitations Hearing Ability: Use of Hearing Aid Foster Care Therapist Required: No Beliefs That Will Affect Care: None Current Living Situation: Personal Care Facility Current Living Situation Comment: [facility] [place] current occupational status: retired How many Children do You have: 3 Feels Safe at Home: Yes Childhood Exposure to Second-Hand Smoke: No Diet: regular Diet Comment: meals on wheels caffeine: Yes during the past year weight has: remained stable Dental Care, Regularly: No Physical Activity Frequency: Daily Physical Activity Frequency Comment: walking daily Seatbelt Use: always Sunscreen Use: Yes Assistive Devices: None, Denture - Upper, Denture - Lower, Glasses, Hearing Aid - Bilateral, Hospital Bed, Walker and Wheelchair Review of Systems Review of Systems: All systems reviewed & are unremarkable except as noted in HPI & below Physical Exam Physical Exam: General: patient resting comfortably, NAD, non-toxic in appearance, AA&O x 4 Skin: warm, dry, intact, no rashes or lesions HEENT: NC/AT, PERRL, EOMI, anicteric sclera, conjunctiva without injection, external ear normal to inspection and nontender, nares patent, dry mucus membranes, dentition intact, no oropharyngeal lesions, neck supple, trachea midline, no LAD, no thyromegaly, no JVD Heart: +S1/S2, regular, no m/r/g Lungs: equal air entry bilaterally, no rales/rhonchi/wheezes Abd: +BS, soft, NT/ND, no masses/organomegaly/ascites Ext: warm, 2+ pulses in UE/LE bilaterally, no clubbing/cyanosis or edema Neuro: nonfocal, patient AA&O x 4, speech intact, no facial droop, right side motor deficit Results & Data Results & Data Vital Signs (Past 12 Hours) Vital Signs Pulse Pulse Resp BP BP Pulse Ox O2 Del Method 06/23/25 18:42 73 15 96 Room Air 06/23/25 18:19 69 20 148/77 H 100 Room Air 06/23/25 18:00 17 164/83 H 99 Room Air 06/23/25 17:09 Room Air 06/23/25 16:36 82 06/23/25 16:30 84 22 141/100 H 99 Room Air 06/23/25 16:30 83 14 99 Room Air 06/23/25 16:29 99 Room Air 06/23/25 16:20 95 H 22 169/81 H 98 Room Air Laboratory Results Laboratory Results WBC 8.89 K/ul (4.8-10.8) 06/23/25 16: RBC 3.74 M/uL (4.20-5.40) L 06/23/25 16:25 Hgb 11.6 g/dl (12.0-16.0) L 06/23/25 16:25 POC Hgb 11.2 g/dl (12.0-16.0) L 06/23/25 16:30 Hct 34.0 % (37.0-47.0) L 06/23/25 16:25 POC Hct 33 % (37-47) L 06/23/25 16:30 MCV 90.9 fL (80.0-100.0) 06/23/25 16: MCH 31.0 pg (25.0-34.0) 06/23/25 16: MCHC 34.1 g/dL (32.0-36.0) 06/23/25: RDW Std Deviation 43.4 fL (36.4-46.3) 06/23/25 16: RDW Coeff of Francisco Javier 13.1 % (11.5-14.5) 06/23/25: Plt Count 170 K/uL (130-400) 06/23/25 16: MPV 10.7 fL (9.4-12.4) 06/23/25 16: Immature Gran % (Auto) 0.4 % 06/23/25 16: Neut % (Auto) 80.5 % 06/23/25 16: Lymph % (Auto) 13.2 % 06/23/25 16:25 Mcclain % (Auto) 5.7 % 06/23/25 16: Eos % (Auto) 0.1 % 06/23/25 16: Baso % (Auto) 0.1 % 06/23/25 16: Neut # (Auto) 7.15 K/uL (1.40-6.50) H 06/23/25 16: Lymph # (Auto) 1.17 K/uL (1.20-3.40) L 06/23/25 16:25 Mcclain # (Auto) 0.51 K/uL (0.11-0.59) 06/23/25 16:25 Eos # (Auto) 0.01 K/uL (0.00-0.50) 06/23/25: Baso # (Auto) 0.01 K/uL (0.00-0.20) 06/23/25 16: Immature Gran # (Auto) 0.04 K/uL (0.01-0.20) 06/23/25 16: PT 10.2 Seconds (9.0-12.0) 06/23/25 16:25 INR 1.0 (0.9-1.1) 06/23/25 16:25 APTT 23 Seconds (21-31) 06/23/25 16:25 PTT Ratio 0.8 06/23/25 16:25 POC Sodium 137 mmol/L (135-144) 06/23/25 16:30 Sodium 135 mmol/L (136-145) L 06/23/25 16:25 POC Potassium 3.9 mmol/L (3.3-5.0) 06/23/25 16:30 Potassium 3.8 mmol/L (3.5-5.1) 06/23/25 16:25 POC Chloride 103 mmol/L (101-112) 06/23/25 16:30 Chloride 104 mmol/L (98-107) 06/23/25 16:25 Carbon Dioxide 24 mmol/L (21-32) 06/23/25 16:25 POC Total CO2 23 mmol/L (24-31) L 06/23/25 16:30 Anion Gap 7 (3-11) 06/23/25 16:25 POC Anion Gap 17.0 mmol/L (16-25) 06/23/25 16:30 POC BUN 19 mg/dl (7-18) H 06/23/25 16:30 BUN 19 mg/dl (6-23) 06/23/25 16:25 Creatinine 0.75 mg/dl (0.6-1.2) 06/23/25 16:25 POC Creatinine 0.8 mg/dl (0.6-1.3) 06/23/25 16:30 Est Cr Clr Drug Dosing 53.1 ml/min 06/23/25 16:25 eGFR 77.97 06/23/25 16:25 BUN/Creatinine Ratio 25.3 (10-20) H 06/23/25 16:25 Glucose 122 mg/dl (70-99(Fasting)) H 06/23/25 16:25 POC Glucose (other) 119 mg/dl (70-99) H 06/23/25 16:30 Calcium 8.8 mg/dl (8.6-10.3) 06/23/25 16:25 POC Ioniz Calcium Apulo 1.17 mmol/l (1.12-1.32) 06/23/25 16:30 Phosphorus 2.5 mg/dl (2.5-4.9) 06/23/25 16:25 Magnesium 1.8 mg/dl (1.7-2.4) 06/23/25 16:25 Total Bilirubin 0.5 mg/dl (0.2-1.0) 06/23/25 16:25 AST 13 U/L (13-39) 06/23/25 16:25 ALT 11 U/L (7-52) 06/23/25 16:25 Alkaline Phosphatase 64 U/L (34-104) 06/23/25 16:25 Troponin I High Sens 3.5 pg/ml (0-14) 06/23/25 16:25 Total Protein 6.1 gm/dl (6.0-8.3) 06/23/25 16: Albumin 3.3 gm/dl (3.4-5.0) L 06/23/25 16:25 Globulin 2.8 gm/dl (2.5-4.0) 06/23/25 16: Albumin/Globulin Ratio 1.2 (0.9-2) 06/23/25 16: TSH 0.778 uIu/ml (0.300-4.500) 06/23/25 16:25 Urine Color Yellow 06/23/25 16:25 Urine Appearance Clear (Clear) 06/23/25 16:25 Urine pH 7.5 (4.5-7.5) 06/23/25 16:25 Ur Specific [place] 1.014 (1.000-1.030) 06/23/25 16:25 Urine Protein Negative (Negative) 06/23/25 16:25 Urine Glucose (UA) Negative (Negative) 06/23/25 16: Urine Ketones Negative (Negative) 06/23/25 16:25 Urine Blood Negative (Negative) 06/23/25 16:25 Urine Nitrite Negative (Negative) 06/23/25 16:25 Urine Bilirubin Negative (Negative) 06/23/25 16: Urine Urobilinogen Negative (Negative) 06/23/25 16:25 Ur Leukocyte Esterase Negative (Negative) 06/23/25 16:25 Urine Comment 06/23/25 16:25 Impressions Chest X-Ray 06/23/25 15:55 Chest radiograph, one view History: Stroke alert Comparison: None Findings: Single AP view of the chest performed. No focal consolidation or pleural effusion. No pneumothorax. The cardiomediastinal silhouette is within normal limits. Normal pulmonary vascularity. No evidence for lymphadenopathy. No visualized bony or soft tissue abnormality. Impression: Normal chest radiograph Electronically signed by Santos Courtney 06-23-2025 4:[address] 06/23/25 15:59 Clinical History: Possible stroke Technique: Axial computed tomography images were obtained of the brain without intravenous contrast. Findings: There is diffuse cerebral atrophy, within expected limits for the patient's age. Areas of decreased attenuation are seen within the periventricular white matter, likely representing chronic small vessel ischemic disease. There is an old infarct of the right lopez radiata. There is no definite sign of acute infarction. No intracranial hemorrhage is evident. No definite mass lesion is seen on this noncontrast examination. There is no midline shift or other form of herniation. No hydrocephalus is seen. No fracture is identified. There is fluid in the right sphenoid sinus. The mastoid air cells appear clear. Impression: 1. Cerebral atrophy, old infarct, and chronic small vessel ischemic disease 2. Sphenoid sinusitis These findings were discussed with Dr. Traore at 4:24 PM on 06/23/2025 Electronically signed by Ralph Holman 06-23-2025 4:26 PM Head CTA 06/23/25 15:59 Clinical History: Possible stroke Technique: Axial computed tomography images were obtained of the brain after the administration of intravenous contrast according to the CT angiogram protocol Findings: There is calcified plaque within the cavernous and supraclinoid segments of the internal carotid arteries bilaterally, without stenosis No definite stenosis or aneurysm is seen of the anterior, middle, or posterior cerebral artery circulations. The visualized vertebral arteries and the basilar artery appear unremarkable Impression: No definite stenosis or aneurysm of the intracranial arteries These findings were discussed with Dr. Traore at 4:24 PM on 06/23/2025 Electronically signed by Ralph Holman 06-23-2025 4:27 PM Neck CTA 06/23/25 15:59 Clinical history: Possible stroke Technique: Axial computed tomography images were obtained of the neck after the administration of intravenous contrast according to the CT angiogram protocol Findings: No stenosis is seen in the common carotid arteries bilaterally. There is plaque within the carotid bulbs bilaterally, without significant stenosis. The remainder of the internal carotid arteries appear patent bilaterally. No stenosis of the external carotid arteries is seen The vertebral arteries are patent bilaterally with no significant stenosis seen. The left vertebral artery is dominant. 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 There is a small nodule in the right thyroid lobe Impression: Bilateral carotid atherosclerosis, without significant stenosis Electronically signed by Ralph Holman 06-23-2025 4:29 PM PG Care Time/CCT Total # of Minutes Spent Total Time Spent with Patient: Total time spent is greater than 50% in coordination of care (as documented) at patient's floor/unit and/or counseling patient: Coding Level of Care Code 57956 INT INP/OBS CARE 3/75MIN Diagnoses Dizziness R42 Vitamin D deficiency E55.9 Vitamin B12 deficiency E53.8 Restless leg syndrome G25.81 Anemia D64.9 HTN (hypertension) I10
[2025-06-23] MEDS ORDERED: ONDANSETRON INJ 2 MG/ML 2 ML VIAL IV PRN (22:45)
[2025-06-23] MEDS ORDERED: ALUMINUM/MAGNESIUM SUSP 30 ML UDC PO PRN (22:45)
[2025-06-23] MEDS: LACTATED RINGER'S 1,000 ML IV SCH (23:43)
[2025-06-23] MEDS: ACETAMINOPHEN 500 MG TAB PO STA (23:43)
[2025-06-23] MEDS: MELATONIN 3 MG TAB PO PRN (23:44)
[2025-06-23] MEDS: DICLOFENAC SOD 1% GEL 100 GM TUBE EXT SCH (23:44)
[2025-06-24 07:23] LABS: Hematocrit (blood only) 32.6 % (37.0-47.0); Hemoglobin 10.7 g/dl (12.0-16.0); Mean Corpuscular Hemoglobin 29.5 pg (25.0-34.0); Mean Corpuscular Volume 89.8 fL (80.0-100.0); Platelet Count 161 K/uL (130-400); RDW Standard Deviation 42.9 fL (36.4-46.3); Red Blood Count 3.63 M/uL (4.20-5.40); White Blood Count 7.03 K/ul (4.8-10.8)
[2025-06-24 07:38] LABS: Anion Gap 5.0 (3-11); Calcium 8.9 mg/dl (8.6-10.3); Carbon Dioxide 25.0 mmol/L (21-32); Chloride 111.0 mmol/L (98-107); Potassium 4.0 mmol/L (3.5-5.1); Sodium 141.0 mmol/L (136-145)
[2025-06-24 07:43] LABS: Blood Urea Nitrogen 14.0 mg/dl (6-23); Creatinine Clr Calc Pharmacy 64.4 ml/min; Glucose 103.0 mg/dl (70-99(Fasting))
[2025-06-24] MEDS: CHOLECALCIFEROL 125 MCG (5,000 UNITS) TAB PO SCH (08:28)
[2025-06-24] MEDS: ASPIRIN 81 MG ECTAB PO SCH (08:28)
[2025-06-24] MEDS: ATORVASTATIN 40 MG TAB PO SCH (08:28)
[2025-06-24] MEDS: CYANOCOBALAMIN 1000 MCG/ML VIAL IM SCH (08:29)
[2025-06-24] MEDS: ACETAMINOPHEN 500 MG TAB PO PRN (08:30)
--- NOTE | 2025-06-24 12:14 | Hospitalist Progress Note ---
Date of Service June 24, 2025 Assessment & Plan (1) Dizziness: Plan: Her symptoms sound like orthostasis. She denies feeling of vertigo. Continue IV fluids for now. Await OT and PT assessments (2) Anemia: Plan: Mild on admission. No overt GI bleeding. Will follow (3) HTN (hypertension): Plan: Stable. Continue current medical management (4) Restless leg syndrome: Plan: Stable. Continue current medical management Plan Hopeful discharge to previous living arrangements tomorrow, June 25 Admission and Anticipated Discharge Date Admission Date: June 23, 2025 Subjective Alert and oriented. No distress. Urine analysis on admission was unremarkable and urine cultures pending. Her symptoms sound more like orthostasis rather than labyrinthitis. OT and PT assessments pending. She remains on intravenous fluids. Hopefully she can go home tomorrowJune 25 Review of Systems 2 Review of Systems: Constitutionalno fever or chills ENTno blurred vision, no double vision, no epistaxis, no sore throat Respiratoryno cough, no wheezing, no shortness of breath Cardiacno palpitations, no chest pain, no syncope [place] nausea, vomiting, diarrhea, melena, hematochezia GUno urinary retention, no urinary incontinence, no dysuria, no hematuria Musculoskeletalno joint pain, no muscle tenderness Skinno bruising, no rashes, no pruritus Neurono isolated weakness, no paresthesia, no weakness. Lightheadedness at times that sounds like orthostasis Psychno depression, no anxiety Physical Exam 2 Physical Exam: General-alert and oriented x3, no fever, no chills HEENT-head atraumatic and normocephalic, pupils equal and reactive to light, extraocular muscles intact Neck-no lymphadenopathy or thyromegaly, trachea midline Chest-clear to auscultation. No rales, wheezing or rhonchi Cardiac-regular rate and rhythm, normal S1 and S2 Abdomen-normal bowel sounds, no hepatosplenomegaly Extremities-no cyanosis, clubbing, or edema Neuro-cranial nerves II through XII intact, motor and sensory function within normal limits, strength symmetrical, no focal deficits Psych-normal affect, normal mood Results & Data Results & Data Vital Signs (Past 12 Hours) Vital Signs Temp Pulse Pulse Resp BP Pulse Ox O2 Del Method 06/24/25 11:30 36.4 C L 73 130/79 97 Room Air 06/24/25 08:00 Room Air 06/24/25 07:20 53 L 06/24/25 07:13 36.6 C 76 143/76 H 95 Room Air 06/24/25 03:45 36.8 C 71 20 158/75 H 97 Room Air 06/24/25 01:45 Room Air 06/24/25 01:39 70 06/24/25 01:24 36.4 C L 73 16 157/81 H 99 Room Air Laboratory Results 06/24/25 05:58 06/24/25 05:58 PG Care Time/CCT Total # of Minutes Spent Total Time Spent with Patient: Total time spent is greater than 50% in coordination of care (as documented) at patient's floor/unit and/or counseling patient: Coding Level of Care Code 09901 SUB INP/OBS CARE 2/35MIN Diagnoses Dizziness R42 Anemia D64.9 HTN (hypertension) I10 Restless leg syndrome G25.81
--- NOTE | 2025-06-24 15:44 | Electrocardiogram Report ---
Test Reason : Blood Pressure : */* mmHG Vent. Rate : 88 BPM Atrial Rate : 87 BPM P-R Int : 238 ms QRS Dur : 80 ms QT Int : 366 ms P-R-T Axes : 63 -22 74 degrees QTcB Int : 442 ms Sinus rhythm with 1st degree AV block Otherwise normal ECG Confirmed by Santos Woody ([id number]) on 06/24/2025 3:43:51 PM Referred By: REFERRED SELF Confirmed By: Santos Woody
[2025-06-25 03:46] VITALS: RESP 18
[2025-06-25 07:04] VITALS: TEMP 97.3
[2025-06-25] MEDS: POLYETHYLENE (MIRALAX) 17 GM PACK PO PRN (08:57)
[2025-06-25 11:45] VITALS: BP 120/77; O2SAT 98
--- NOTE | 2025-06-25 11:49 | Discharge Summary ---
Discharge Summary Date of Service June 25, 2025 Principal Dx & Hospital Course #1 = Principal Diagnosis (1) Dizziness: Her symptoms sound like orthostasis. She denies feeling of vertigo. Treated while hospitalized with IV fluids. OT and PT assessments completed. She is able to go home with home health services. (2) Anemia: Mild on admission. No overt GI bleeding. Will follow (3) HTN (hypertension): Stable. Continue current medical management (4) Restless leg syndrome: Stable. Continue current medical management Plan Home with home health services today, June 25 Admission HPI Per Admitting Provider Lauren Guillen is an 85yo female with history of GERD, HTN, HLP presenting with episodes of dizziness. On Saturday patient began having episodes of dizziness and lightheadedness. She does not describe vertiginous symptoms but more the sensation that she is going to pass out. Episodes occur occasionally with positional changes - sitting to standing or with prolonged standing but today she had the feeling while she was sitting. Patient was seen in her PCPs office with this complaint on 06/21/25 as well as complaining of neck and shoulder pain. She was administered trigger point injections x 5. She felt ok throughout the day on 06/22. Today she had several episodes of dizziness again so she was seen again in her PCPs office. She had an EKG with no changes. Also sent off labs including CBC, BMP, LFTs all within normal limits. She was found to have a low Vitamin D level as well as a low B12 level. Patient returned home from her appointment today and felt dizzy again so her son called the ambulance and she came to the ER. Patient states that when she gets the episodes she has a hard time focusing her eyes. She denies chest pain, palpitations, cough, SOB, fever, chills, headache, recent illness or vaccinations, nausea, vomiting or diarrhea. She is eating well and urinating without difficulty - no dysuria. She has a baseline right sided motor deficit and speech deficit from a prior stroke - unchanged. In the ER she is afebrile, mildly hypertensive, otherwise HD stable. No arrhythmia noted on monitor. ER Course: NSS x 1L Discharge Exam General-alert and oriented x3, no fever, no chills HEENT-head atraumatic and normocephalic, pupils equal and reactive to light, extraocular muscles intact Neck-no lymphadenopathy or thyromegaly, trachea midline Chest-clear to auscultation. No rales, wheezing or rhonchi Cardiac-regular rate and rhythm, normal S1 and S2 Abdomen-normal bowel sounds, no hepatosplenomegaly Extremities-no cyanosis, clubbing, or edema Neuro-cranial nerves II through XII intact, motor and sensory function within normal limits, strength symmetrical, no focal deficits Psych-normal affect, normal mood Discharge Plan Discharge Items Patient Disposition: Home - Home Health Services Reason For Visit: DIZZINESS Discharge Diagnosis: Lightheadedness and dizziness from suspected orthostasis Condition on Discharge: Good Activity: Resume your previous activity Non-emergency contact: Primary Care Provider Call non-emergency contact if: your symptoms worsen Follow-up/Referrals: Gui Ma, [Primary Care Provider] - Diet: Regular Addtl Attending Provider Instructions: All medications remain the same. Stay well-hydrated. Home health services have been requested. See primary care provider soon as possible for follow-up Pending Studies at Discharge: No Stand-Alone Forms: My [facility] [employer], Smoking Cessation Medications and DC Order Prescriptions: Continued (DME) Hospital Bed Misc See Rx Instructions .Route Qty: 1 0RF Rx Instructions: Please provide one semielectric hospital bed. ropinirole 0.5 mg tablet 0.5 mg PO 1700 Qty: 30 3RF aspirin 81 mg Tablet,Delayed Release (Dr/Ec) 81 mg PO QAM Qty: 30 0RF acetaminophen 500 mg Tablet 500 mg PO Q8 PRN (Reason: Pain) atorvastatin 40 mg tablet 40 mg PO QAM Admission Data Admit Date/Time: 06/23/25 19:49 Attending Provider: Dorian Herrmann Admit Provider: Maxine Hansen Primary Care Provider: Gui Ma Other Providers: Maxine Hansen; Shen [facility] Hospital Stay Data Consultations 06/23/25 18:45 ED Decision to Admit Stat Diagnostic Imagining Performed 06/23/25 15:59 CT angio head w con Stat CT angio neck with con Stat CT head/brain wo con Stat Pending Results Patient Have Any Pending Studies at Discharge: No Discharge Instructions Given to Patient (Per Discharging Provider) All medications remain the same. Stay well-hydrated. Home health services have been requested. See primary care provider soon as possible for follow-up Total Time Total Time Spent Total Time Spent (In Minutes): 45 minutes. Total time included patient exam, discharge planning, and medication reconciliation. Coding Level of Care Code 77870 INP/OBS DISCH >30 MIN Diagnoses Dizziness R42 Anemia D64.9 HTN (hypertension) I10 Hypertension type: unspecified Restless leg syndrome G25.81
[2025-06-25 11:50] VITALS: PULSE 67
== END 2025-06-25 13:18 | disposition home health service (06) ==
LOC: ED 15:50 → 2W 15:50 → SUATTDRO 19:49 → 2W 22:03